=== PATIENT | female | born 1945 | race Caucasian/White ===

== ENCOUNTER → 2017-12-19 14:21 | Outpatient (CLI) | payer MEDICARE, SELFPAY ==
[2017-12-19 17:54] LABS: Albumin, Serum 3.5 g/dL (3.2-5.0); BUN 26 mg/dL (7-18); BUN/Creat Ratio 14.1 RATIO (10-20); Calcium,Total 9.5 mg/dL (8.5-10.1); Chloride 105 mmol/L (98-107); Creatinine, Serum 1.84 mg/dL (0.55-1.02); EST Glomerular Filtration Rate 28 mL/min (>60); Est Glom Filt Rate - Afr Amer 34 mL/min (>60); Glucose 139 mg/dL (74-106); Phosphorus 4.4 mg/dL (2.5-4.9); Potassium 4.4 mmol/L (3.5-5.1); Sodium Level 138 mmol/L (136-145)
== END ==
LOC: POLAB3 14:21
PROVIDERS: Family Provider Student in an Organized Health Care Education/Training Program; PCP Student in an Organized Health Care Education/Training Program; Visit Provider Internal Medicine Nephrology
DX: N18.4 Chronic kidney disease, stage 4 (severe) (principal)
CPT/HCPCS: 36415; 80069; 83970

== ENCOUNTER → 2018-01-18 08:50 | Outpatient (CLI) | payer MEDICARE, SELFPAY ==
[2017-03-11 13:13] VITALS: BMI 29.5
[2018-01-18 13:20] LABS: 24HR. UA Prot. Total Volume 3300 mL
[2018-01-18 13:29] LABS: Creat.Clear Total Volume 3300 mL; Creatinine Clearance 32 ml/min (100-200); Creatinine Serum Creat 1.8 mg/dL (0.6-1.0); Creatinine Urine 24.8 mg/dL (NO RANGE EST.); EST Glomerular Filtration Rate 29 mL/min (>60); Est Glom Filt Rate - Afr Amer 35 mL/min (>60)
[2018-01-18 13:34] LABS: Urine Protein (24 Hour) < 6.0 mg/dL (<11.9)
--- OUTSIDE RECORDS SUMMARY | 2018-03-15 08:33 | XMS RPT_ITS ---
:1945 Author Organization OH[facility] Care Team Providers Name Role Phone Timothy Das Primary Care Unavailable Toi Mckeon Attending Unavailable Sylvie Magana Attending Unavailable Das, Timothy Primary Care Unavailable Sylvie Magana Attending Unavailable Sylvie Magana Referring Unavailable Das Timothy Primary Care Unavailable Sylvie Magana Attending Unavailable Buzz Timothy Primary Care Unavailable MAXIMILIAN, ROCKY Gonzalo ([facility]) Attending Unavailable DAS, TIMOTHY L Referring Unavailable CORNIELLO, ROCKY L ([facility]) Referring Unavailable JAMES, PENG E Referring Unavailable JAMES, PENG E Attending Unavailable JAMES, PENG E Referring Unavailable CORNIELLO, ROCKY L ([facility]) Referring Unavailable CORNIELLO, ROCKY L ([facility]) Referring Unavailable CORNIELLO, ROCKY L ([facility]) Referring Unavailable CORNIELLO, ROCKY L ([facility]) Attending Unavailable JAMES, PENG E Referring Unavailable CORNIELLO, ROCKY L ([facility]) Attending Unavailable DAS, TIMOTHY L Referring Unavailable CORNIELLO, ROCKY L ([facility]) Attending Unavailable CORNIELLO, ROCKY L ([facility]) Referring Unavailable JAMES, PENG E Referring Unavailable DAS, TIMOTHY L Referring Unavailable DAS, TIMOTHY L Referring Unavailable CORNIELLO, ROCKY L ([facility]) Attending Unavailable DAS, TIMOTHY L Primary Care Unavailable MANJIT RAMIREZH Attending Unavailable JAMES, PENG Referring Unavailable PROBLEMS PROBLEMS DATE TYPE CONDITION / CODE ATTENDING STATUS SOURCE 10/14/2016 Active Type 2 diabetes NA Active [place] mellitus with [facility] diabetic chronic [place] kidney disease / Repository E11.22(ICD-10) 10/14/2016 Active Chronic kidney NA Active [place] disease, stage 4 [facility] (severe) / [place] N18.4(ICD-10) Repository 10/14/2016 Active shelter (current) NA Active [place] use of insulin / [facility] Z79.4(ICD-10) [place] Repository 02/03/2018 Active Other specified NA Active [place] personal risk [facility] factors, not [place] elsewhere classified Repository / Z91.89(ICD-10) 02/03/2018 Active Other prison NA Active [place] (current) drug [facility] therapy / [place] Z79.899(ICD-10) Repository 01/25/2018 Active Atherosclerotic NA Active [place] 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 coronary [place] artery without Repository angina pectoris / I25.10(ICD-10) 01/25/2018 Active Unknown / JAMES, Active Hand UNK(Unknown) PENG E [facility] [place] Repository 12/08/2017 Admitting Unknown / JAMES, Active [place] General diagnosis UNK(Unknown) [facility] Repository 08/19/2014 Active Hyperlipidemia, NA Active [place] unspecified / [facility] E78.5(ICD-10) [place] Repository 08/19/2014 Active Anemia, unspecified NA Active [place] / D64.9(ICD-10) [facility] [place] Repository 05/09/2016 Active Essential (primary) NA Active [place] hypertension / [facility] I10(ICD-10) [place] Repository 03/28/2017 Active Generalized NA Active [place] abdominal pain / [facility] R10.84(ICD-10) [place] Repository PROCEDURES PROCEDURES No Procedure Records FoundRESULTS RESULTS ALBUMIN/CREAT RATIO Collected: 02/03/2018 Status: F Source: [place] 9:02 AM [facility] REPOSITORY TYPE CODE TESTS RESULT OUT OF REFERENCE UNITS RANGE LAB UCRR 20-300 mg/dL Creatinine,Ur 91.4 ine,Ran LAB UALBR 0.0-23.0 mg/L High Albumin Urine 62.1 Random LAB UALBCR 0-30 mg/g High Albumin/Creat 68 Ratio Result Comment: 30 to 300 mg/g indicates an increased risk for diabetic nephropathy. Greater than 300 mg/g is consistent with clinical nephropathy. (Am J Kidney Disease 1994, 25:107) Performed By: #### UACR #### [facility] [address] [place], [place] [address] COMP METABOLIC PANEL Collected: 02/03/2018 Status: F Source: [place] 9:01 [facility] REPOSITORY TYPE CODE TESTS RESULT OUT OF REFERENCE UNITS RANGE LAB TP 6.3-8.0 g/dL Protein, Total 7.1 LAB ALB 3.9-4.9 g/dL Low Albumin 3.8 LAB CA 8.5-10.2 mg/dL Calcium, Total 9.2 LAB TBIL 0.2-1.3 mg/dL Bilirubin, Total 0.2 LAB ALKP 34-123 U/L Alkaline Phosphatase 70 LAB AST 13-35 U/L AST 23 LAB GLU 74-99 mg/dL Glucose High 133 Result Comment: The [place] Diabetes Association (ADA) provides guidance for cutoff values for fasting glucose and random glucose. The ADA defines fasting as no caloric intake for at least 8 hours. Fas ting plasma glucose results between 100 to 125 mg/dL indicate increased risk for diabetes (prediabetes). Fasting plasma glucose results greater than or equal to 126 mg/dL meet the criteria for diagnosis of diabetes. In the absence of unequivocal hyperglycemia, results should be confirmed by repeat testing. In a patient with classic symptoms of hyperglycemia or hyperglycemic crisis, random plasma glucose results greater than or equal to 200 mg/dL meet the criteria for diagnosis of diabetes. Reference: Standards of Medical Care in Diabetes 2016, [place] Diabetes Association. Diabetes Care. 2016.39(Suppl 1). LAB BUN 7-21 mg/dL BUN High 30 LAB CRET 0.58-0.96 mg/dL Creatinine High 1.73 LAB NA 136-144 mmol/L Sodium 140 LAB K 3.7-5.1 mmol/L Potassium 4.5 LAB CL 97-105 mmol/L Chloride 102 LAB CO2 22-30 mmol/L CO2 25 LAB AGAP 9-18 mmol/L Anion Gap 13 LAB ALT 7-38 U/L ALT 27 LAB GFRAA eGFR- Amer. 35 LAB GFRNAA . eGFR-All Other Races 29 Result Comment: eGFR (Estimated GFR) Units of measure: mL/min/1.73 meters squared eGFR is derived from the reexpressed MDRD Study equation using the following parameters: serum creatinine, age, gender and race. The creatinine assay has been calibrated to be traceable to IDMS. An eGFR <60 mL/min/1.73m2 for >3 months is consistent with chronic kidney disease. Refer to KDOQI guidelines for clinical interpretation. In patients with unstable renal function, e.g. those with acute kidney injury, the eGFR may not accurately reflect actual GFR. Performed By: #### CMP, LIPB, HBA1C #### [facility] [address] [place], [place] [address] LIPID PANEL, BASIC Collected: 02/03/2018 Status: F Source: [place] 9:01 AM [facility] REPOSITORY TYPE CODE TESTS RESULT OUT OF REFERENCE UNITS RANGE LAB CHOL <200 mg/dL Cholesterol 185 Result Comment: <200 mg/dL, Desirable 200-239 mg/dL, Borderline high >239 mg/dL, High LAB TRIGLY <150 mg/dL Triglyceride High 162 Result Comment: <150 mg/dL, Normal 150-199 mg/dL, Borderline high 200-499 mg/dL, High >499 mg/dL, Very high LAB HDL >39 mg/dL HDL-Cholesterol 53 Result Comment: 40-59 mg/dL, Acceptable >59 mg/dL, High: Negative risk factor for coronary heart disease <40 mg/dL, Low: Positive risk factor for coronary heart disease LAB LDL <100 mg/dL LDL-Cholesterol High 100 Result Comment: <100 mg/dL, Optimal 100-129 mg/dL, Near optimal/above optimal 130-159 mg/dL, Borderline high 160-189 mg/dL, High >189 mg/dL, Very high Secondary prevention optimal LDL Cholesterol levels are recommended to be < 70 mg/dL LAB NONHDL <130 mg/dL Non HDL High Cholesterol 132 Result Comment: <130 mg/dL, Optimal 130-159 mg/dL, Near optimal/above optimal 160-189 mg/dL, Borderline high 190-219 mg/dL, High >219 mg/dL, Very high Secondary prevention optimal non HDL Cholesterol levels are recommended to be < 100 mg/dL LAB FT hrs Fasting Time 12 LAB VLDL <30 mg/dL High VLDL Cholesterol 32 LAB TCHDL <5.10 TC:HDL Ratio 3.49 LAB LDLHDL <2.54 LDL:HDL Ratio 1.89 Result Comment: Reference: 1. National Cholesterol Education Program ATP III Guideline At-A-Glance Quick Desk Reference: National Heart, Lung, and Blood [place]. National Institutes of Health. 2001: NIH Publication No. 01-3305. 2. An International Atherosclerosis Society position paper: global recommendations for the management of dyslipidemia: executive summary, Atherosclerosis. 2014: 232(2):410-413. Performed By: #### CMP, LIPB, HBA1C #### [facility] [address] [place], [place] [address] HEMOGLOBIN A1C Collected: 02/03/2018 Status: F Source: [place] 9:01 AM [facility] REPOSITORY TYPE CODE TESTS RESULT OUT OF REFERENCE UNITS RANGE LAB HGBA1C 4.3-5.6 % High Hemoglobin A1c 8.2 Result Comment: [place] Diabetes Association guidelines indicate that patients with HgbA1c in the range 5.7-6.4% are at increased risk for development of diabetes, and intervention by lifestyle modification may be beneficial. HgbA1c greater or equal to 6.5% is considered diagnostic of diabetes. LAB HBA0 mg/dL Est. Average Glucose 189 Result Comment: eAG: (Estimated average glucose) is a calculated value from HgbA1c and is public service representative of the average blood glucose level in the last 2-3 month period. Performed By: #### CMP, LIPB, HBA1C #### [facility] [address] [place], [place] [address] CNNURSE Observed: 01/25/2018 Status: COMPLETED Source: [place] 4:00 PM [facility] REPOSITORY Nurse Visit (CAWSTR) JACKIE ALVAREZ ([id number]) 1945 F Date Time Provider Department 01/25/18 4:00 PM NURSE CARD ADMIN [facility] W[facility] CAWSTR During your visit today, we recorded the following information about you: Magen Sen RN 01/25/2018 2:55 PM Signed Ekg completed per order. Pt tolerated procedure without distress. Magen Sen RN Referring Provider: PENG RAMIREZ [[id number]] Allergies As of Date: 01/25/2018 (No Known Allergies) Date Reviewed: 01/25/2018 Reviewed by: Melisa Ochoa MA - Fully Assessed Reason for Visit: Nurse Visit [792] Visit Diagnoses:ASHD (arteriosclerotic heart disease) [I25.10] Essential hypertension [I10] Order(s):ECG COMPLETE W INTERPRETATION [ECG01] Order #: [id number] Prescriptions as of 01/25/2018 Sig: CALCIUM 600 + D ORAL Take by mouth. NOVOLIN N NPH U-100 INSULIN I* INJECT 16 UNITS SUBCUTANEOUSL* INSULIN U-100 REGULAR HUMAN 1* Inject 2 units before breakfa* LANCETS Use as directed to check bloo* GLUCOSE 4 GRAM CHEWABLE TABLET Take 4 tablets by mouth as ne* BLOOD SUGAR DIAGNOSTIC STRIPS Use as directed to check bloo* AMLODIPINE 10 MG TABLET Take 1 tablet by mouth once d* METOPROLOL TARTRATE 25 MG TAB* Take 1 tablet by mouth twice * ATORVASTATIN 40 MG TABLET TAKE ONE TABLET BY MOUTH ONCE* ESCITALOPRAM 5 MG TABLET TAKE ONE TABLET BY MOUTH ONCE* INSULIN SYRINGE U-100 WITH NE* Use as directed once daily wi* CHOLECALCIFEROL (VITAMIN D3) * TAKE ONE CAPSULE BY MOUTH ONC* BLOOD-GLUCOSE METER Use as directed to check bloo* ASPIRIN 81 MG TABLET,DELAYED * Take 1 tablet by mouth once d* Problem List As Of Date 01/25/2018 Noted Resolved HTN (hypertension) [I10] INVALID FOR* More... 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 Pt tolerated procedure without distress. Magen Sen RN Encounter Status:Closed by MAGEN SEN RN on 01/25/18 EKG1 Observed: 01/25/2018 Status: F Source: [place] 3:18 PM [facility] REPOSITORY NAME : JACKIE ALVAREZ PID : [id number] : 1945 Gender : Female Race : ORD : Procedure Date : Jan 25 2018 15:18:43 Edit Date : Jan 26 2018 12:35:56 Diagnosis:SINUS RHYTHM WITH 1ST DEGREE AV BLOCK COMPLETE LEFT BUNDLE BRANCH BLOCK ABNORMAL ECG LBBB IS NEW. Confirmed by PENG RAMIREZ MD ([id number]) on 01/26/2018 12:35:52 PM Ventricular Rate : 68 BPM Atrial Rate : 68 BPM P-R Interval : 220 ms QRS Duration : 130 ms Q-T Interval : 444 ms QTC Calculation(Bezet) : 472 ms P [place] : 67 degrees R [place] : 8 degrees T [place] : -81 degrees Test Reason : Location : 136 : [place] Overread By : PENG RAMIREZ MD Edited By : PENG RAMIREZ MD Referred By : JAMES, Acquired by : , PROGRESS Observed: 01/25/2018 Status: COMPLETED Source: [place] 2:45 PM [facility] REPOSITORY HNO ID: [id number] Author: Peng Ramirez Service: (none) Author Type: Physician Type: Progress Notes Filed: 01/25/2018 5:03 PM Note Text: PERTINENT CARDIAC HISTORY Syncope - cardiac? ASHD - moderate HTN HL DM CRF LBBB - rate related Abnormal stress test Left carotid stenosis ADHERENCE TO GUIDELINES LANDON-I or ARB for HF with prior LVEF<40 (NQF 0081) - met ASA or Plavix for ASHD (NQF 0067) - met Beta eusebia for ASHD with prior VA or prior LVEF<40 (NQF 0070) - N/A Beta eusebia for HF with prior LVEF<40 (NQF 0083) - N/A LANDON-I or ARB for ASHD with DM or prior LVEF<40 (NQF 0066) - met Statin therapy for ASHD or FHL or DM - met BMI documented and plan if >25 (NQF 0421) - lifestyle recommendation form Tobacco use screening and referral (NQF 0028) - lifestyle recommendation form Recommendation for whole food, plant based diet - lifestyle recommendation form CLINICAL IMPRESSION/PLAN: Jackie Alvarez is doing reasonably well. She reports blood pressures in the 120 systolic range at home. She will remain off Landon inhibitors for the time being. I recommend that she be seen in 12 months or as needed. If there is increased chest pain or shortness of breath, she has been advised to contact me. Written and verbal health teaching given to patient, patient verbalizes understanding and agrees with treatment plan. DIAGNOSIS FOR VISIT: ASHD Hypertension HISTORY OF PRESENT ILLNESS Jackie Alvarez returns for follow-up of her coronary disease and multiple cardiac issues, as noted above. She reports stable exercise tolerance. She's had no chest discomfort. She denies orthopnea, edema, syncope, palpitations, TIAs, amaurosis and claudication. She is now off her LANDON inhibitor, presumably because of declining renal function. She's been seeing nephrology. ALLERGIES: ALLERGIES No Known Allergies CURRENT OUTPATIENT MEDICATIONS: calcium carbonate/vitamin D3 (CALCIUM 600 + D ORAL) Take by mouth. NOVOLIN N NPH U-100 INSULIN 100 unit/mL injection INJECT 16 UNITS SUBCUTANEOUSLY AT BREAKFAST AND 12 UNITS WITH DINNER insulin regular human (HUMULIN R REGULAR U-100 INSULN) 100 unit/mL injection Inject 2 units before breakfast, 4 units before lunch and 6 units before supper Lancets (ACCU-CHEK SOFTCLIX LANCETS) lancets Use as directed to check blood sugar 1 to 2 times daily Dx: Type 2 DM - Controlled Insulin: Yes glucose (DEX4 GLUCOSE) 4 gram chewable tablet Take 4 tablets by mouth as needed. blood sugar diagnostic (ACCU-CHEK AUTUMN PLUS TEST STRP) test strip Use as directed to check blood sugar 4 to 5 times daily Dx: Type 2 DM - Controlled . Insulin: Yes amLODIPine (NORVASC) 10 mg tablet Take 1 tablet by mouth once daily. metoprolol tartrate, short acting, (LOPRESSOR) 25 mg tablet Take 1 tablet by mouth twice daily. atorvastatin (LIPITOR) 40 mg tablet TAKE ONE TABLET BY MOUTH ONCE DAILY escitalopram oxalate (LEXAPRO) 5 mg tablet TAKE ONE TABLET BY MOUTH ONCE DAILY Insulin Syringe-Needle U-100 0.3 mL 31 gauge x 5/16 syrg Use as directed once daily with insulin Cholecalciferol, Vitamin D3, 5,000 unit cap TAKE ONE CAPSULE BY MOUTH ONCE DAILY Blood-Glucose Meter (ACCU-CHEK AUTUMN PLUS METER) misc Use as directed to check blood sugar 1 to 2 times daily Dx: Type 2 DM - Controlled E11.22 ?Insulin: Yes aspirin, enteric coated (ADULT LOW DOSE ASPIRIN) 81 mg EC tablet Take 1 tablet by mouth once daily. PHYSICAL EXAMINATION: VITAL SIGNS: BP 133/65 Pulse 69 Ht 5' 7 (1.70m) Wt 180 lb 9.6 oz (81.9kg) BMI 28.28 kg/(m2). Chest: Clear to auscultation. Trachea is midline. Air entry is equal. Cardiac: Regular rhythm. S1 and S2 are normal. PMI is nondisplaced. There is a soft systolic ejection murmur. Carotids are brisk without bruits. JVP is less than 10 cm. Abdomen: Soft and nontender. There are no pulsatile masses or bruits. No liver enlargement. Bowel sounds are active. Extremities: Trace edema. Pulses are intact and symmetrical. Recent carotid Doppler shows no significant change. Recent labs reviewed. Renal function is impaired, but stable. LDL was 46. EKG shows sinus rhythm with first-degree AV block and left bundle. There is no significant change. Electronically Signed: Peng Ramirez MD January 25, 2018 2:45 PM CC: DO DAYAMI Quigley Observed: 01/25/2018 Status: COMPLETED Source: [place] 2:15 PM [facility] REPOSITORY Office Visit (CAWSTR) JACKIE ALVAREZ ([id number]) 1945 F Date Time Provider Department 01/25/18 2:15 PM PENG RAMIREZ During your visit today, we recorded the following information about you: Pulse Blood pressure Weight Height 69/minute 133/65 81.9 kg 1.702 m Peng Ramirez MD 01/25/2018 2:45 PM Signed LIFESTYLE CHANGE A healthy lifestyle is the most important component of your overall treatment plan. Please give serious thought to the following areas and commit to making emt intermediate changes. EAT A WHOLE FOOD, PLANT BASED DIET The nutrition your body gets is more important than the medicine you take. What matters most is the overall way you eat. We encourage you to minimize the use of animal products (which include dairy and all meats except fatty fish) and use whole, unprocessed plant foods to provide your protein, vitamins and other nutrients. We have a lot of information to share with you on this topic. This is not a diet. It is a way of life that you will keep with you. EXERCISE REGULARLY It is not important to spend hours in the gym, lifting weights and perspiring heavily. A total of 2-3 hours per week of aerobic (causing you to be moderately short of breath) exercise is sufficient to improve your health. Talk to us before you begin a new exercise program, if you have heart disease or experience shortness of breath or chest pain. REDUCE STRESS Chronic emotional and physical stress leads to disease. Ways of reducing stress include meditation, visualization, prayer, yoga and other forms of relaxation therapy. Consistency is the hodges. Find a technique that works for you and do it every day. CULTIVATE RELATIONSHIPS Loneliness and isolation have a major negative impact on health. Seek out others who can love, care for and nurture you. Avoid hurtful relationships. MAINTAIN IDEAL BODY WEIGHT The best way to do this is to do all the things above. Our bodies naturally find the right weight if we keep moving and feed ourselves the right food. If your BMI is greater than 25, we strongly recommend a referral to a weight management program. Please speak to us or your family physician about available programs. AVOID NICOTINE IN ALL FORMS This includes all tobacco products, whether chewed, smoked, vaped, or rubbed on the skin. Smoking cessation programs, which can make use of tobacco substitutes, medications to suppress cravings and behavior management, are available. Please contact your family physician about programs in your area. Peng Ramirez MD 01/25/2018 5:03 PM Signed PERTINENT CARDIAC HISTORY Syncope - cardiac? ASHD - moderate HTN HL DM CRF LBBB - rate related Abnormal stress test Left carotid stenosis ADHERENCE TO GUIDELINES LANDON-I or ARB for HF with prior LVEF<40 (NQF 0081) - met ASA or Plavix for ASHD (NQF 0067) - met Beta eusebia for ASHD with prior VA or prior LVEF<40 (NQF 0070) - N/A Beta eusebia for HF with prior LVEF<40 (NQF 0083) - N/A LANDON-I or ARB for ASHD with DM or prior LVEF<40 (NQF 0066) - met Statin therapy for ASHD or FHL or DM - met BMI documented and plan if >25 (NQF 0421) - lifestyle recommendation form Tobacco use screening and referral (NQF 0028) - lifestyle recommendation form Recommendation for whole food, plant based diet - lifestyle recommendation form CLINICAL IMPRESSION/PLAN: Jackie Alvarez is doing reasonably well. She reports blood pressures in the 120 systolic range at home. She will remain off Landon inhibitors for the time being. I recommend that she be seen in 12 months or as needed. If there is increased chest pain or shortness of breath, she has been advised to contact me. Written and verbal health teaching given to patient, patient verbalizes understanding and agrees with treatment plan. DIAGNOSIS FOR VISIT: ASHD Hypertension HISTORY OF PRESENT ILLNESS Jackie Alvarez returns for follow-up of her coronary disease and multiple cardiac issues, as noted above. She reports stable exercise tolerance. She's had no chest discomfort. She denies orthopnea, edema, syncope, palpitations, TIAs, amaurosis and claudication. She is now off her LANDON inhibitor, presumably because of declining renal function. She's been seeing nephrology. ALLERGIES: ALLERGIES No Known Allergies CURRENT OUTPATIENT MEDICATIONS: calcium carbonate/vitamin D3 (CALCIUM 600 + D ORAL) Take by mouth. NOVOLIN N NPH U-100 INSULIN 100 unit/mL injection INJECT 16 UNITS SUBCUTANEOUSLY AT BREAKFAST AND 12 UNITS WITH DINNER insulin regular human (HUMULIN R REGULAR U-100 INSULN) 100 unit/mL injection Inject 2 units before breakfast, 4 units before lunch and 6 units before supper Lancets (ACCU-CHEK SOFTCLIX LANCETS) lancets Use as directed to check blood sugar 1 to 2 times daily Dx: Type 2 DM - Controlled E11.22 Insulin: Yes glucose (DEX4 GLUCOSE) 4 gram chewable tablet Take 4 tablets by mouth as needed. blood sugar diagnostic (ACCU-CHEK AUTUMN PLUS TEST STRP) test strip Use as directed to check blood sugar 4 to 5 times daily Dx: Type 2 DM - Controlled E11.22 Insulin: Yes amLODIPine (NORVASC) 10 mg tablet Take 1 tablet by mouth once daily. metoprolol tartrate, short acting, (LOPRESSOR) 25 mg tablet Take 1 tablet by mouth twice daily. atorvastatin (LIPITOR) 40 mg tablet TAKE ONE TABLET BY MOUTH ONCE DAILY escitalopram oxalate (LEXAPRO) 5 mg tablet TAKE ONE TABLET BY MOUTH ONCE DAILY Insulin Syringe-Needle U-100 0.3 mL 31 gauge x 5/16 syrg Use as directed once daily with insulin Cholecalciferol, Vitamin D3, 5,000 unit cap TAKE ONE CAPSULE BY MOUTH ONCE DAILY Blood-Glucose Meter (ACCU-CHEK AUTUMN PLUS METER) misc Use as directed to check blood sugar 1 to 2 times daily Dx: Type 2 DM - Controlled E11.22 ?Insulin: Yes aspirin, enteric coated (ADULT LOW DOSE ASPIRIN) 81 mg EC tablet Take 1 tablet by mouth once daily. PHYSICAL EXAMINATION: VITAL SIGNS: BP 133/65 Pulse 69 Ht 5' 7 (1.70m) Wt 180 lb 9.6 oz (81.9kg) BMI 28.28 kg/(m2). Chest: Clear to auscultation. Trachea is midline. Air entry is equal. Cardiac: Regular rhythm. S1 and S2 are normal. PMI is nondisplaced. There is a soft systolic ejection murmur. Carotids are brisk without bruits. JVP is less than 10 cm. Abdomen: Soft and nontender. There are no pulsatile masses or bruits. No liver enlargement. Bowel sounds are active. Extremities: Trace edema. Pulses are intact and symmetrical. Recent carotid Doppler shows no significant change. Recent labs reviewed. Renal function is impaired, but stable. LDL was 46. EKG shows sinus rhythm with first-degree AV block and left bundle. There is no significant change. Electronically Signed: Peng Ramirez MD January 25, 2018 2:45 PM CC: Timothy Das DO Referring Provider: PENG RAMIREZ [[id number]] Allergies As of Date: 01/25/2018 (No Known Allergies) Date Reviewed: 01/25/2018 Reviewed by: Melisa Ochoa MA - Fully Assessed Reason for Visit: Established Patient [175] Primary Visit Diagnosis:ASHD (arteriosclerotic heart disease) [I25.10] Other Visit Diagnosis:Essential hypertension [I10] Order(s):ECG COMPLETE W INTERPRETATION [ECG01] Order #: [id number] FUTURE Prescriptions as of 01/25/2018 Sig: CALCIUM 600 + D ORAL Take by mouth. NOVOLIN N NPH U-100 INSULIN I* INJECT 16 UNITS SUBCUTANEOUSL* INSULIN U-100 REGULAR HUMAN 1* Inject 2 units before breakfa* LANCETS Use as directed to check bloo* GLUCOSE 4 GRAM CHEWABLE TABLET Take 4 tablets by mouth as ne* BLOOD SUGAR DIAGNOSTIC STRIPS Use as directed to check bloo* AMLODIPINE 10 MG TABLET Take 1 tablet by mouth once d* METOPROLOL TARTRATE 25 MG TAB* Take 1 tablet by mouth twice * ATORVASTATIN 40 MG TABLET TAKE ONE TABLET BY MOUTH ONCE* ESCITALOPRAM 5 MG TABLET TAKE ONE TABLET BY MOUTH ONCE* INSULIN SYRINGE U-100 WITH NE* Use as directed once daily wi* CHOLECALCIFEROL (VITAMIN D3) * TAKE ONE CAPSULE BY MOUTH ONC* BLOOD-GLUCOSE METER Use as directed to check bloo* ASPIRIN 81 MG TABLET,DELAYED * Take 1 tablet by mouth once d* Problem List As Of Date 01/25/2018 Noted Resolved HTN (hypertension) [I10] INVALID FOR* More... 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 Please give serious thought to the following areas and commit to making prison changes. EAT A WHOLE FOOD, PLANT BASED DIET The nutrition your body gets is more important than the medicine you take. What matters most is the overall way you eat. We encourage you to minimize the use of animal products (which include dairy and all meats except fatty fish) and use whole, unprocessed plant foods to provide your protein, vitamins and other nutrients. We have a lot of information to share with you on this topic. This is not a diet. It is a way of life that you will keep with you. EXERCISE REGULARLY It is not important to spend hours in the gym, lifting weights and perspiring heavily. A total of 2-3 hours per week of aerobic (causing you to be moderately short of breath) exercise is sufficient to improve your health. Talk to us before you begin a new exercise program, if you have heart disease or experience shortness of breath or chest pain. REDUCE STRESS Chronic emotional and physical stress leads to disease. Ways of reducing stress include meditation, visualization, prayer, yoga and other forms of relaxation therapy. Consistency is the hodges. Find a technique that works for you and do it every day. CULTIVATE RELATIONSHIPS Loneliness and isolation have a major negative impact on health. Seek out others who can love, care for and nurture you. Avoid hurtful relationships. MAINTAIN IDEAL BODY WEIGHT The best way to do this is to do all the things above. Our bodies naturally find the right weight if we keep moving and feed ourselves the right food. If your BMI is greater than 25, we strongly recommend a referral to a weight management program. Please speak to us or your family physician about available programs. AVOID NICOTINE IN ALL FORMS This includes all tobacco products, whether chewed, smoked, vaped, or rubbed on the skin. Smoking cessation programs, which can make use of tobacco substitutes, medications to suppress cravings and behavior management, are available. Please contact your family physician about programs in your area. Encounter Status:Closed by PENG RAMIREZ MD on 01/25/18 PROTEIN, URINE 24HR Collected: 01/18/2018 Status: F Source: [place] 8:56 AM [facility] REPOSITORY TYPE CODE TESTS RESULT OUT OF RANGE REFERENCE UNITS LAB L501.1850 24.0 HOURS 24.0 Normal UR COLLECT TIME LAB L501.1875 mL 3300 Normal UR TOTAL VOLUME LAB L501.1900 <11.9 mg/dL < 6.0 Normal URINE PROTEIN LAB L501.1925 <150 MG/24HR mg/24HR Test Normal 24hr UR not performed PROTEIN Performed By: #### L500.9000 #### [facility] [address] [place], [place], [address] SERUM CREATININE AND Collected: 01/18/2018 Status: F Source: [place] GFR 8:56 AM [facility] REPOSITORY TYPE CODE TESTS RESULT OUT OF RANGE REFERENCE UNITS LAB L501.1100 0.55-1.02 mg/dL High 1.80 CREAT,SERUM Result Comment: The validity of the calculated GFR AND GFRAA in patients over 70 years has not been determined. Clinical correlation is essential. LAB L501.1110 >60 mL/min Low EST GFR 29 Result Comment: Non- GFR Calc LAB L501.1115 >60 mL/min Low EST GFR - AA 35 Result Comment: GFR Calc Performed By: #### L501.1105, L500.3600 #### [facility] [address] [place], [address] RENAL PROFILE Collected: 01/18/2018 Status: P Source: [place] 8:56 AM [facility] REPOSITORY TYPE CODE TESTS RESULT OUT OF RANGE REFERENCE UNITS LAB L501.1100 0.55-1.02 mg/dL High 1.80 CREAT,SERUM Result Comment: The validity of the calculated GFR AND GFRAA in patients over 70 years has not been determined. Clinical correlation is essential. LAB L501.1110 >60 mL/min Low EST GFR 29 Result Comment: Non- GFR Calc LAB L501.1115 >60 mL/min Low EST GFR - AA 35 Result Comment: GFR Calc Performed By: #### L501.1105, L500.3600 #### [facility] [address] [place], [address] 24 HR UR CREATININE Collected: 01/18/2018 Status: F Source: [place]AR[place] 8:56 AM [facility] REPOSITORY TYPE CODE TESTS RESULT OUT OF RANGE REFERENCE UNITS LAB L501.0050 24.0 HOURS Normal UR COLLECT 24.0 TIME LAB L501.0075 mL Normal UR TOTAL 3300 VOLUME LAB L501.1050 0.6-1.0 mg/dL High SERUM CREAT 1.8 LAB L501.1110 >60 mL/min Low EST GFR 29 Result Comment: Non- GFR Calc LAB L501.1115 >60 mL/min Low EST GFR - AA 35 Result Comment: GFR Calc LAB L501.1150 NO RANGE mg/dL EST. URINE Normal CREAT 24.8 LAB L501.1250 100-200 ml/min Low CREAT CLEARANCE 32 Performed By: #### L500.4507 #### [facility] [address] [place] [address]. [place], [place], [address] PROGRESS Observed: 12/28/2017 Status: COMPLETED Source: [place] 11:54 AM [facility] REPOSITORY HNO ID: [id number] Author: Annika Cooley Service: (none) Author Type: Advisory Services Associate Type: Progress Notes Filed: 12/28/2017 11:54 AM Note Text: Radiology Service Progress Note PATIENT NAME: Jackie Alvarez DATE OF SERVICE: December 28, 2017 TIME: 11:54 AM PATIENT IDENTITY VERIFICATION COMPLETED USING TWO (2) METHODS: Patient confirmed name verbally and Date of . PATIENT GENDER DATA: Female. status: : No status: N/A PATIENT RELEVANT IMPLANT DATA REVIEWED: Not Applicable RADIOLOGY DEPARTMENT: Ultrasound PERIPHERAL IV DATA: Not applicable SIGNED BY: ANNIKA COOLEY RDMS RVT December 28, 2017 11:54 AM US KIDNEY/BLADDER Observed: 12/28/2017 Status: F Source: [place] 11:53 AM [facility] REPOSITORY * * *Final Report* * * DATE OF EXAM: Dec 28 2017 11:53AM [facility] 1055 - US KIDNEY/BLADDER / PROCEDURE REASON: multiple diagnoses * * * * Physician Interpretation * * * * EXAMINATION: RENAL ULTRASOUND CLINICAL HISTORY: Chronic kidney disease TECHNIQUE: Sonography of the kidneys and urinary bladder was performed. Images were obtained and stored in a permanent archive. MQ: UR_1 COMPARISON: None RESULT: Right Kidney: -Renal length: 12.3 cm -Parenchyma: Normal parenchymal echogenicity. Normal parenchymal thickness. -Collecting system: No hydronephrosis. -Calculus: No echogenic, shadowing calculus. -Lesion: Multiple cysts, largest involving the lower pole measuring 5.0 and 3.8 cm. Left Kidney: -Renal length: 9.2 cm -Parenchyma: Normal parenchymal echogenicity. Diffuse parenchymal thinning present. -Collecting system: No hydronephrosis. -Calculus: No echogenic, shadowing calculus. -Lesion: Upper pole cyst measuring 1.6 cm. Bladder: Normal sonographic appearance. IMPRESSION: Multiple right-sided renal cysts. Atrophic left kidney with small upper pole left-sided renal cysts. Unremarkable urinary bladder. Garment Supervisor: PSCB Transcribe Date/Time: Dec 29 2017 9:13A Dictated by : REBA ALTMAN MD This examination was interpreted and the report reviewed and electronically signed by: REBA ALTMAN MD on Dec 29 2017 9:16AM EST [id number] RENAL PROFILE Collected: 12/19/2017 Status: F Source: [place] 2:23 PM [facility] REPOSITORY TYPE CODE TESTS RESULT OUT OF RANGE REFERENCE UNITS LAB L501.0100 74-106 mg/dL High GLU 139 Result Comment: Fasting Glucose result greater than or equal to 126 mg/dL suggests DIABETES MELLITUS per A.D.A. criteria. Please note revised GLUCOSE reference range effective 2017. LAB L501.1000 7-18 mg/dL High BUN 26 LAB L501.1100 0.55-1.02 mg/dL High CREAT,SERUM 1.84 Result Comment: The validity of the calculated GFR AND GFRAA in patients over 70 years has not been determined. Clinical correlation is essential. LAB L501.1110 >60 mL/min Low EST GFR 28 Result Comment: Non- GFR Calc LAB L501.1115 >60 mL/min Low EST GFR - AA 34 Result Comment: GFR Calc LAB L501.1300 10-20 RATIO Normal BUN/CRE 14.1 LAB L501.1800 3.2-5.0 g/dL Normal ALB 3.5 LAB L501.2200 8.5-10.1 mg/dL CA Normal 9.5 LAB L501.2300 2.5-4.9 mg/dL Normal PHOS 4.4 LAB L501.5300 136-145 mmol/L NA Normal 138 LAB L501.5600 3.5-5.1 mmol/L K Normal 4.4 Result Comment: Slight Hemolysis, Result may be falsely increased. LAB L501.5900 98-107 mmol/L Normal CL 105 LAB L501.6100 21.0-32.0 mmol/L Normal CO2 26.0 Performed By: #### L500.3600 #### [facility] [address] [place], [address] PTHIN Collected: 12/19/2017 Status: F Source: [place] 2:23 PM [facility] REPOSITORY TYPE CODE TESTS RESULT OUT OF RANGE REFERENCE UNITS LAB L509.1000 18.4-80.1 pg/mL Normal PTHIN 24.0 Performed By: #### L509.1000 #### [facility] [address] [place], [address] BD DXA - FOREARM Observed: 11/06/2017 Status: F Source: [place] 10:31 AM [facility] REPOSITORY * * *Final Report* * * DATE OF EXAM: Nov 06 2017 10:31AM [facility] 0870 - BD DXA - FOREARM SKELETON / PROCEDURE REASON: multiple diagnoses. Stage 4 Chronic Kidney Disease * * * * Physician Interpretation * * * * PROCEDURE: BD DXA - AXIAL SKELETON, BD DXA - FOREARM SKELETON INDICATION: Other specified personal risk factors, not elsewhere classified Type 2 diabetes mellitus with diabetic chronic kidney disease Chronic kidney disease, stage 4 (severe) shelter (current) use of insulin TECHNIQUE: Low dose AP spine and hip images COMPARISON: LUMBAR SPINE: The bone mineral density from L1 through L4 is 1.012 grams per square centimeter which yields a T-score of -0.3. . LEFT HIP: The bone mineral density of the total region of the hip is 0.987 grams per square centimeter which yields a T-score of 0.4. . LEFT FEMORAL NECK: The bone mineral density of the femoral neck is 0.762 grams per square centimeter which yields a T-score of -0.8. . RIGHT HIP: The bone mineral density of the total region of the hip is 0.995 grams per square centimeter which yields a T-score of 0.4. . RIGHT FEMORAL NECK: The bone mineral density of the femoral neck is 0.751 grams per square centimeter which yields a T-score of -0.9. . LEFT FOREARM: The bone mineral density of the radius 1/3 is 0.615 grams per square centimeter which yields a T-score of -1.3 . . 10-year Fracture Risk (FRAX): Major osteoporotic fracture risk 9.2% Hip fracture risk 1.3% IMPRESSION: Osteopenia in the left forearm. [facility] ORG. CLASSIFICATION OF BONE MASS CLASSIFICATION T-SCORE Normal Greater than -1 Low Bone Mass Between -1 and -2.5 (Osteopenia) Osteoporosis Less than or equal to -2.5 Garment Supervisor: PSCGermain Transcribe Date/Time: Nov 06 2017 10:48A Dictated by : ADA JONES MD This examination was interpreted and the report reviewed and electronically signed by: ADA JONES MD on Nov 06 2017 10:50AM EST [id number] BD DXA - AXIAL Observed: 11/06/2017 Status: F Source: [place] 10:31 AM [facility] REPOSITORY * * *Final Report* * * DATE OF EXAM: Nov 06 2017 10:31AM [facility] 0804 - BD DXA - AXIAL SKELETON B / PROCEDURE REASON: multiple diagnoses * * * * Physician Interpretation * * * * PROCEDURE: BD DXA - AXIAL SKELETON, BD DXA - FOREARM SKELETON INDICATION: Other specified personal risk factors, not elsewhere classified Type 2 diabetes mellitus with diabetic chronic kidney disease Chronic kidney disease, stage 4 (severe) shelter (current) use of insulin TECHNIQUE: Low dose AP spine and hip images COMPARISON: LUMBAR SPINE: The bone mineral density from L1 through L4 is 1.012 grams per square centimeter which yields a T-score of -0.3. . LEFT HIP: The bone mineral density of the total region of the hip is 0.987 grams per square centimeter which yields a T-score of 0.4. . LEFT FEMORAL NECK: The bone mineral density of the femoral neck is 0.762 grams per square centimeter which yields a T-score of -0.8. . RIGHT HIP: The bone mineral density of the total region of the hip is 0.995 grams per square centimeter which yields a T-score of 0.4. . RIGHT FEMORAL NECK: The bone mineral density of the femoral neck is 0.751 grams per square centimeter which yields a T-score of -0.9. . LEFT FOREARM: The bone mineral density of the radius 1/3 is 0.615 grams per square centimeter which yields a T-score of -1.3 . . 10-year Fracture Risk (FRAX): Major osteoporotic fracture risk 9.2% Hip fracture risk 1.3% IMPRESSION: Osteopenia in the left forearm. [facility] ORG. CLASSIFICATION OF BONE MASS CLASSIFICATION T-SCORE Normal Greater than -1 Low Bone Mass Between -1 and -2.5 (Osteopenia) Osteoporosis Less than or equal to -2.5 Garment Supervisor: JACINTA Transcribe Date/Time: Nov 06 2017 10:48A Dictated by : ADA JONES MD This examination was interpreted and the report reviewed and electronically signed by: ADA JONES MD on Nov 06 2017 10:50AM EST [id number] PROGRESS Observed: 11/06/2017 Status: COMPLETED Source: [place] 10:28 AM [facility] REPOSITORY HNO ID: [id number] Author: Max Vee (Rt) Gordon Powers Service: (none) Author Type: Yard Assistant Type: Progress Notes Filed: 11/06/2017 10:29 AM Note Text: Radiology Service Progress Note PATIENT NAME: Jackie Alvarez DATE OF SERVICE: November 06, 2017 TIME: 10:28 AM PATIENT IDENTITY VERIFICATION COMPLETED USING TWO (2) METHODS: Patient confirmed name verbally and Date of . PATIENT GENDER DATA: Female. status: : No status: NO. PATIENT RELEVANT IMPLANT DATA REVIEWED: Not Applicable RADIOLOGY DEPARTMENT: [facility] bone density PERIPHERAL IV DATA: Not applicable SIGNED BY: RT Trae November 06, 2017 10:28 AM ALBUMIN URINE RANDOM Collected: 10/25/2017 Status: F Source: [place] 11:48 AM [facility] REPOSITORY TYPE CODE TESTS RESULT OUT OF REFERENCE UNITS RANGE LAB UALBR 0.0-23.0 mg/L High Albumin Urine 65.9 Random Performed By: #### UALBR #### [facility] [address] [place] [id number] PROGRESS Observed: 10/25/2017 Status: COMPLETED Source: [place] 11:30 AM [facility] REPOSITORY HNO ID: [id number] Author: Rocky Sánchez (Porter) Maximilian Service: (none) Author Type: Nurse Practitioner Type: Progress Notes Filed: 10/25/2017 11:38 AM Note Text: HPI/CC: Jackie Alvarez is a 72 year old female who presents for 3 month follow up with review of labs. Overall patient doing well. Blood glucose levels are stable. Following with Sandeep Dumont. Reports a few episodes of hypoglycemia r/t not eating. Followed hypoglycemia protocol and felt better. Reviewed blood glucose log. Admits to not drinking enough water. Continues exercise. Denies CP, SOB, palpitations, N/V, headache, abdominal pain, change in BMs, change in urination. Taking all medications as prescribed. Reports low back pain with increased activity. Resolves with rest. Reviewed labs with patient Component Latest Ref Rng AND Units 05/13/2017 07/25/2017 10/24/2017 WBC 3.70 - 11.00 k/uL 6.86 RBC 3.90 - 5.20 m/uL 4.03 Hemoglobin 11.5 - 15.5 g/dL 11.7 Hematocrit 36.0 - 46.0 % 38.3 MCV 80.0 - 100.0 fL 95.0 MCH 26.0 - 34.0 pG 29.0 MCHC 30.5 - 36.0 g/dL 30.5 RDW-CV 11.5 - 15.0 % 14.4 Platelet Count 150 - 400 k/uL 202 MPV 9.0 - 12.7 fL 10.7 Neut% % 64.4 Abs Neut (ANC) 1.45 - 7.50 k/uL 4.40 Lymph% % 23.6 Abs Lymph 1.00 - 4.00 k/uL 1.62 Henry% % 8.2 Abs Henry <0.87 k/uL 0.56 Eosin% % 3.2 Abs Eosin <0.46 k/uL 0.22 Baso% % 0.6 Abs Baso <0.11 k/uL 0.04 Nucleated Reds 0 /100 WBC 0.0 Absolute nRBC <0.01 k/uL <0.01 Diff Type Auto Diff Protein, Total 6.3 - 8.0 g/dL 7.2 6.7 Albumin 3.9 - 4.9 g/dL 4.0 3.9 Calcium 8.5 - 10.2 mg/dL 9.5 9.4 Bilirubin, Total 0.2 - 1.3 mg/dL 0.3 0.2 Alkaline Phosphatase 32 - 117 U/L 60 60 AST 13 - 35 U/L 26 25 Glucose 74 - 99 mg/dL 115 (H) 117 (H) BUN 7 - 21 mg/dL 33 (H) 48 (H) Creatinine 0.58 - 0.96 mg/dL 1.96 (H) 2.00 (H) Sodium 136 - 144 mmol/L 142 143 Potassium 3.7 - 5.1 mmol/L 4.6 4.8 Chloride 97 - 105 mmol/L 103 105 CO2 22 - 30 mmol/L 25 24 Anion Gap 9 - 18 mmol/L 14 14 ALT 7 - 38 U/L 21 23 eGFR- 30 29 eGFR-All Other Races . 25 24 Cholesterol, Total <200 mg/dL 120 Triglyceride <150 mg/dL 107 HDL Cholesterol >39 mg/dL 53 LDL Cholesterol <100 mg/dL 46 Non HDL Cholesterol <130 mg/dL 67 Fasting Time hrs 7 VLDL Cholesterol <30 mg/dL 21 TC:HDL Ratio <5.10 2.26 LDL:HDL Ratio <2.54 0.87 Hemoglobin A1C 4.3 - 5.6 % 6.8 (H) Estimated Average Glucose mg/dL 148 Hemoglobin A1C (POCT) 4.2 - 5.6 % 7.1 (A) ROS as above, otherwise non-contributory. Reviewed PMHx, PSHx, social Hx, medications and allergies. PHYSICAL EXAMINATION: BP 120/62 Pulse 76 Resp 16 Wt 81.2 kg (179 lb) BMI 28.04 kg/m? General appearance: Well appearing, alert, in no acute distress, well-hydrated, well nourished. and Overweight Skin: Skin color, texture, turgor normal, no suspicious rashes or lesions Lungs: Lungs clear to auscultation. No wheezing, rhonchi, rales Heart: RRR without murmur, gallop, or rubs. No ectopy Abdomen: Normal abdominal exam, Abdomen soft, non-tender. Bowel sounds normal. No masses, organomegaly ASSESSMENT/PLAN: 1. Type 2 diabetes mellitus with stage 4 chronic kidney disease, with long-term current use of insulin (HCC) - ICD9: 250.40, 585.4, V58.67, ICD10: E11.22, N18.4, Z79.4 (primary diagnosis) improved control - Continue current medications - Blood glucose monitoring on a three times a day schedule - Follow up in 3 months, sooner should any other issues arise. - BP goal of <130/80 - LDL goal of <100 - US KIDNEY/BLADDER - ALBUMIN RANDOM URINE - CREAT CLEAR 24 HOUR - COMP METABOLIC PANEL - LIPID PANEL BASIC - HGB A1C - CONSULT TO NEPHROLOGY- previously seen by Dr. Horta- patient would like to follow with a different provider 2. At risk for bone density loss - ICD9: V49.89, ICD10: Z91.89 - DXA-AXIAL SKELETON - continue to follow with Sandeep Dumont, set up new appt with nephrology. - f/u in 3 months or before if needed Rocky Yao APRN.CNP CNOV Observed: 10/25/2017 Status: COMPLETED Source: [place] 10:40 AM [facility] REPOSITORY Office Visit (FAMPWS) ALVAREZJACKIE ([id number]) 1945 F Date Time Provider Department 10/25/17 10:40 AM ROCKY YAO (PORTER) FAMPWS During your visit today, we recorded the following information about you: Pulse Respiration Blood pressure Weight 76/minute 16/minute 120/62 81.2 kg Rocky Yao APRN.CNP 10/25/2017 11:38 AM Signed HPI/CC: Jackie Alvarez is a 72 year old female who presents for 3 month follow up with review of labs. Overall patient doing well. Blood glucose levels are stable. Following with Sandeep Dumont. Reports a few episodes of hypoglycemia r/t not eating. Followed hypoglycemia protocol and felt better. Reviewed blood glucose log. Admits to not drinking enough water. Continues exercise. Denies CP, SOB, palpitations, N/V, headache, abdominal pain, change in BMs, change in urination. Taking all medications as prescribed. Reports low back pain with increased activity. Resolves with rest. Reviewed labs with patient Component Latest Ref Rng AND Units 05/13/2017 07/25/2017 10/24/2017 WBC 3.70 - 11.00 k/uL 6.86 RBC 3.90 - 5.20 m/uL 4.03 Hemoglobin 11.5 - 15.5 g/dL 11.7 Hematocrit 36.0 - 46.0 % 38.3 MCV 80.0 - 100.0 fL 95.0 MCH 26.0 - 34.0 pG 29.0 MCHC 30.5 - 36.0 g/dL 30.5 RDW-CV 11.5 - 15.0 % 14.4 Platelet Count 150 - 400 k/uL 202 MPV 9.0 - 12.7 fL 10.7 Neut% % 64.4 Abs Neut (ANC) 1.45 - 7.50 k/uL 4.40 Lymph% % 23.6 Abs Lymph 1.00 - 4.00 k/uL 1.62 Henry% % 8.2 Abs Henry <0.87 k/uL 0.56 Eosin% % 3.2 Abs Eosin <0.46 k/uL 0.22 Baso% % 0.6 Abs Baso <0.11 k/uL 0.04 Nucleated Reds 0 /100 WBC 0.0 Absolute nRBC <0.01 k/uL <0.01 Diff Type Auto Diff Protein, Total 6.3 - 8.0 g/dL 7.2 6.7 Albumin 3.9 - 4.9 g/dL 4.0 3.9 Calcium 8.5 - 10.2 mg/dL 9.5 9.4 Bilirubin, Total 0.2 - 1.3 mg/dL 0.3 0.2 Alkaline Phosphatase 32 - 117 U/L 60 60 AST 13 - 35 U/L 26 25 Glucose 74 - 99 mg/dL 115 (H) 117 (H) BUN 7 - 21 mg/dL 33 (H) 48 (H) Creatinine 0.58 - 0.96 mg/dL 1.96 (H) 2.00 (H) Sodium 136 - 144 mmol/L 142 143 Potassium 3.7 - 5.1 mmol/L 4.6 4.8 Chloride 97 - 105 mmol/L 103 105 CO2 22 - 30 mmol/L 25 24 Anion Gap 9 - 18 mmol/L 14 14 ALT 7 - 38 U/L 21 23 eGFR- 30 29 eGFR-All Other Races . 25 24 Cholesterol, Total <200 mg/dL 120 Triglyceride <150 mg/dL 107 HDL Cholesterol >39 mg/dL 53 LDL Cholesterol <100 mg/dL 46 Non HDL Cholesterol <130 mg/dL 67 Fasting Time hrs 7 VLDL Cholesterol <30 mg/dL 21 TC:HDL Ratio <5.10 2.26 LDL:HDL Ratio <2.54 0.87 Hemoglobin A1C 4.3 - 5.6 % 6.8 (H) Estimated Average Glucose mg/dL 148 Hemoglobin A1C (POCT) 4.2 - 5.6 % 7.1 (A) ROS as above, otherwise non-contributory. Reviewed PMHx, PSHx, social Hx, medications and allergies. PHYSICAL EXAMINATION: BP 120/62 Pulse 76 Resp 16 Wt 81.2 kg (179 lb) BMI 28.04 kg/m? General appearance: Well appearing, alert, in no acute distress, well-hydrated, well nourished. and Overweight Skin: Skin color, texture, turgor normal, no suspicious rashes or lesions Lungs: Lungs clear to auscultation. No wheezing, rhonchi, rales Heart: RRR without murmur, gallop, or rubs. No ectopy Abdomen: Normal abdominal exam, Abdomen soft, non-tender. Bowel sounds normal. No masses, organomegaly ASSESSMENT/PLAN: 1. Type 2 diabetes mellitus with stage 4 chronic kidney disease, with long-term current use of insulin ([facility]) - ICD9: 250.40, 585.4, V58.67, ICD10: E11.22, N18.4, Z79.4 (primary diagnosis) improved control - Continue current medications - Blood glucose monitoring on a three times a day schedule - Follow up in 3 months, sooner should any other issues arise. - BP goal of <130/80 - LDL goal of <100 - US KIDNEY/BLADDER - ALBUMIN RANDOM URINE - CREAT CLEAR 24 HOUR - COMP METABOLIC PANEL - LIPID PANEL BASIC - HGB A1C - CONSULT TO NEPHROLOGY- previously seen by Dr. Horta- patient would like to follow with a different provider 2. At risk for bone density loss - ICD9: V49.89, ICD10: Z91.89 - DXA-AXIAL SKELETON - continue to follow with Sandeep Dumont, set up new appt with nephrology. - f/u in 3 months or before if needed Rocky Yao APRN.[employer]STRU[employer] WORKER Referring Provider: SELF [200] Allergies As of Date: 10/25/2017 (No Known Allergies) Date Reviewed: 10/25/2017 Reviewed by: Herman Fry LPN - Fully Assessed Reason for Visit: Recheck [92] Cmt: 3 month follow up with review of labs Primary Visit Diagnosis:Type 2 diabetes mellitus with stage 4 chronic kidney disease, with long-term current use of insulin (HCC) [E11.22, N18.4, Z79.4] Other Visit Diagnosis:At risk for bone density loss [Z91.89] Order(s): KIDNEY/BLADDER [[id number]] Order #: [id number] FUTURE ALBUMIN RANDOM URINE [SQUALBR] Order #: [id number] FUTURE CREAT CLEAR 24 HOUR [SQUCCLR] Order #: [id number] FUTURE COMP METABOLIC PANEL [SQCMP] Order #: [id number] FUTURE LIPID PANEL BASIC [SQLIPB] Order #: [id number] FUTURE HGB A1C [[id number]] Order #: [id number] FUTURE DXA-AXIAL SKELETON [[id number]] Order #: [id number] FUTURE CONSULT TO NEPHROLOGY [9018] Order #: [id number]: 1 Prescriptions as of 10/25/2017 Sig: NOVOLIN N NPH U-100 INSULIN I* INJECT 16 UNITS SUBCUTANEOUSL* INSULIN U-100 REGULAR HUMAN 1* Inject 2 units before breakfa* LANCETS Use as directed to check bloo* GLUCOSE 4 GRAM CHEWABLE TABLET Take 4 tablets by mouth as ne* BLOOD SUGAR DIAGNOSTIC STRIPS Use as directed to check bloo* AMLODIPINE 10 MG TABLET Take 1 tablet by mouth once d* METOPROLOL TARTRATE 25 MG TAB* Take 1 tablet by mouth twice * ATORVASTATIN 40 MG TABLET TAKE ONE TABLET BY MOUTH ONCE* ESCITALOPRAM 5 MG TABLET TAKE ONE TABLET BY MOUTH ONCE* INSULIN SYRINGE-NEEDLE U-100 * Use as directed once daily wi* CHOLECALCIFEROL (VITAMIN D3) * TAKE ONE CAPSULE BY MOUTH ONC* BLOOD-GLUCOSE METER Use as directed to check bloo* ASPIRIN 81 MG TABLET,DELAYED * Take 1 tablet by mouth once d* Problem List As Of Date 10/25/2017 Noted Resolved HTN (hypertension) [I10] INVALID FOR* More... 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] INVALID FOR* Anemia [D64.9] INVALID FOR* Elevated serum creatinine [R79.89] INVALID FOR* Uncontrolled type 2 diabetes mellitus without c*INVALID FOR*05/25/2017 Essential hypertension [I10] INVALID FOR*04/25/2017 Situational depression [F43.21] INVALID FOR* Overweight (BMI 25.0-29.9) [E66.3] INVALID FOR* Vitamin D deficiency [E55.9] INVALID FOR* Type 2 diabetes mellitus with stage 4 chronic k*INVALID FOR* Encounter Status:Closed by ROCKY YAO CNP on 10/25/17 CBC AND DIFFERENTIAL Collected: 10/24/2017 Status: F Source: [place] 7:51 AM [facility] REPOSITORY TYPE CODE TESTS RESULT OUT OF REFERENCE UNITS RANGE LAB WBC 3.70-11.00 k/uL WBC 6.86 LAB RBC 3.90-5.20 m/uL RBC 4.03 LAB HGB 11.5-15.5 g/dL Hemoglobin 11.7 LAB HCT 36.0-46.0 % Hematocrit 38.3 LAB MCV 80.0-100.0 fL MCV 95.0 LAB MCH 26.0-34.0 pG MCH 29.0 LAB MCHC 30.5-36.0 g/dL MCHC 30.5 LAB RDWCV 11.5-15.0 % RDW-CV 14.4 LAB PLTCT 150-400 k/uL Platelet Count 202 LAB MPV 9.0-12.7 fL MPV 10.7 LAB ANEUT % Neut% 64.4 LAB AANEUT 1.45-7.50 k/uL Abs Neut 4.40 LAB ALYMP % Lymph% 23.6 LAB AALYMP 1.00-4.00 k/uL Abs Lymph 1.62 LAB AMONO % Henry% 8.2 LAB AAMONO <0.87 k/uL Abs Henry 0.56 LAB AEOS % Eosin% 3.2 LAB AAEOS <0.46 k/uL Abs Eosin 0.22 LAB ABASO % Baso% 0.6 LAB AABASO <0.11 k/uL Abs Baso 0.04 LAB AUNRBC 0 /100 WBC NRBCs 0.0 LAB ABNRBC <0.01 k/uL Absolute nRBC <0.01 LAB DTYP DTYPE Auto Diff Performed By: #### CBCDIF, HBA1C, CMP, LIPB #### [facility] [employer] [address], [place] [address] HEMOGLOBIN A1C Collected: 10/24/2017 Status: F Source: [place] 7:51 AM [facility] REPOSITORY TYPE CODE TESTS RESULT OUT OF REFERENCE UNITS RANGE LAB HGBA1C 4.3-5.6 % High Hemoglobin A1c 6.8 LAB HBA0 mg/dL Est. Average Glucose 148 Result Comment: eAG: (Estimated average glucose) is a calculated value from HgbA1c and is public service representative of the average blood glucose level in the last 2-3 month period. Performed By: #### CBCDIF, HBA1C, CMP, LIPB #### [facility] [employer] [facility] [place] [address] COMP METABOLIC PANEL Collected: 10/24/2017 Status: F Source: [place] 7:51 AM [facility] REPOSITORY TYPE CODE TESTS RESULT OUT OF REFERENCE UNITS RANGE LAB TP 6.3-8.0 g/dL Protein, Total 6.7 LAB ALB 3.9-4.9 g/dL Albumin 3.9 LAB CA 8.5-10.2 mg/dL Calcium, Total 9.4 LAB TBIL 0.2-1.3 mg/dL Bilirubin, Total 0.2 LAB ALKP 32-117 U/L Alkaline Phosphatase 60 LAB AST 13-35 U/L AST 25 LAB GLU 74-99 mg/dL Glucose High 117 Result Comment: The [place] Diabetes Association (ADA) provides guidance for cutoff values for fasting glucose and random glucose. The ADA defines fasting as no caloric intake for at least 8 hours. Fas ting plasma glucose results between 100 to 125 mg/dL indicate increased risk for diabetes (prediabetes). Fasting plasma glucose results greater than or equal to 126 mg/dL meet the criteria for diagnosis of diabetes. In the absence of unequivocal hyperglycemia, results should be confirmed by repeat testing. In a patient with classic symptoms of hyperglycemia or hyperglycemic crisis, random plasma glucose results greater than or equal to 200 mg/dL meet the criteria for diagnosis of diabetes. Reference: Standards of Medical Care in Diabetes 2016, [place] Diabetes Association. Diabetes Care. 2016.39(Suppl 1). LAB BUN 7-21 mg/dL BUN High 48 LAB CRET 0.58-0.96 mg/dL Creatinine High 2.00 LAB NA 136-144 mmol/L Sodium 143 LAB K 3.7-5.1 mmol/L Potassium 4.8 LAB CL 97-105 mmol/L Chloride 105 LAB CO2 22-30 mmol/L CO2 24 LAB AGAP 9-18 mmol/L Anion Gap 14 LAB ALT 7-38 U/L ALT 23 LAB GFRAA eGFR- Amer. 29 LAB GFRNAA . eGFR-All Other Races 24 Result Comment: eGFR (Estimated GFR) Units of measure: mL/min/1.73 meters squared eGFR is derived from the reexpressed MDRD Study equation using the following parameters: serum creatinine, age, gender and race. The creatinine assay has been calibrated to be traceable to IDMS. An eGFR <60 mL/min/1.73m2 for >3 months is consistent with chronic kidney disease. Refer to KDOQI guidelines for clinical interpretation. In patients with unstable renal function, e.g. those with acute kidney injury, the eGFR may not accurately reflect actual GFR. Performed By: #### CBCDIF, HBA1C, CMP, LIPB #### [facility] [address] [place], [place] [address] LIPID PANEL, BASIC Collected: 10/24/2017 Status: F Source: [place] 7:51 AM [facility] REPOSITORY TYPE CODE TESTS RESULT OUT OF REFERENCE UNITS RANGE LAB CHOL <200 mg/dL Cholesterol 120 Result Comment: <200 mg/dL, Desirable 200-239 mg/dL, Borderline high >239 mg/dL, High LAB TRIGLY <150 mg/dL Triglyceride 107 Result Comment: <150 mg/dL, Normal 150-199 mg/dL, Borderline high 200-499 mg/dL, High >499 mg/dL, Very high LAB HDL >39 mg/dL HDL-Cholesterol 53 Result Comment: 40-59 mg/dL, Acceptable >59 mg/dL, High: Negative risk factor for coronary heart disease <40 mg/dL, Low: Positive risk factor for coronary heart disease LAB LDL <100 mg/dL LDL-Cholesterol 46 Result Comment: <100 mg/dL, Optimal 100-129 mg/dL, Near optimal/above optimal 130-159 mg/dL, Borderline high 160-189 mg/dL, High >189 mg/dL, Very high Secondary prevention optimal LDL Cholesterol levels are recommended to be < 70 mg/dL LAB NONHDL <130 mg/dL Non HDL Cholesterol 67 Result Comment: <130 mg/dL, Optimal 130-159 mg/dL, Near optimal/above optimal 160-189 mg/dL, Borderline high 190-219 mg/dL, High >219 mg/dL, Very high Secondary prevention optimal non HDL Cholesterol levels are recommended to be < 100 mg/dL LAB FT hrs Fasting Time 7 LAB VLDL <30 mg/dL VLDL Cholesterol 21 LAB TCHDL <5.10 TC:HDL Ratio 2.26 LAB LDLHDL <2.54 LDL:HDL Ratio 0.87 Result Comment: Reference: 1. National Cholesterol Education Program ATP III Guideline At-A-Glance Quick Desk Reference: National Heart, Lung, and Blood [place]. National Institutes of Health. 2001: NIH Publication No. 01-3305. 2. An International Atherosclerosis Society position paper: global recommendations for the management of dyslipidemia: executive summary, Atherosclerosis. 2014: 232(2):410-413. Performed By: #### CBCDIF, HBA1C, CMP, LIPB #### [facility] [address] [place] [address] PROGRESS Observed: 09/12/2017 Status: COMPLETED Source: [place] 12:18 PM [facility] REPOSITORY HNO ID: [id number] Author: Isa English Clipper Machine Service: (none) Author Type: (none) Type: Progress Notes Filed: 09/12/2017 12:19 PM Note Text: Letters mailed to patient. PROGRESS Observed: 09/12/2017 Status: COMPLETED Source: [place] 12:17 PM [facility] REPOSITORY HNO ID: [id number] Author: Isa English Clipper Machine Service: (none) Author Type: (none) Type: Progress Notes Filed: 09/12/2017 12:19 PM Note Text: Patient has upcoming appointment with Rocky Farah on 10/25. Will be due for labs prior. I will send appointment/lab reminder with Dm retinal reminder and release form. CRISTINEPALLAVI Observed: 09/12/2017 Status: COMPLETED Source: [place] 12:00 AM [facility] REPOSITORY Patient Outreach (INTMWS) JACKIE ALVAREZ ([id number]) 1945 F Date Time Provider Department 09/12/17 ISA ENGLISH ([facility]) INTMWS During your visit today, we recorded the following information about you: Isa English Cma 09/12/2017 12:19 PM Signed Patient has upcoming appointment with Rocky Farah on 10/25. Will be due for labs prior. I will send appointment/lab reminder with Dm retinal reminder and release form. Isa English Clipper Machine 09/12/2017 12:19 PM Signed Letters mailed to patient. Allergies As of Date: 09/12/2017 (No Known Allergies) Date Reviewed: 07/25/2017 Reviewed by: Herman Fry LPN - Fully Assessed Reason for Visit: PHMA/Care Gap Outreach [[id number]] Prescriptions as of 09/12/2017 Sig: INSULIN NPH ISOPHANE U-100 HU* Inject 16 units subcutaneousl* LANCETS Use as directed to check bloo* GLUCOSE 4 GRAM CHEWABLE TABLET Take 4 tablets by mouth as ne* BLOOD SUGAR DIAGNOSTIC STRIPS Use as directed to check bloo* INSULIN U-100 REGULAR HUMAN 1* Inject 2 units before breakfa* AMLODIPINE 10 MG TABLET Take 1 tablet by mouth once d* METOPROLOL TARTRATE 25 MG TAB* Take 1 tablet by mouth twice * ATORVASTATIN 40 MG TABLET TAKE ONE TABLET BY MOUTH ONCE* ESCITALOPRAM 5 MG TABLET TAKE ONE TABLET BY MOUTH ONCE* INSULIN SYRINGE-NEEDLE U-100 * Use as directed once daily wi* CHOLECALCIFEROL (VITAMIN D3) * TAKE ONE CAPSULE BY MOUTH ONC* BLOOD-GLUCOSE METER Use as directed to check bloo* ASPIRIN 81 MG TABLET,DELAYED * Take 1 tablet by mouth once d* Problem List As Of Date 09/12/2017 Noted Resolved HTN (hypertension) [I10] INVALID FOR* More... 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 Our records indicate that you may be due for a diabetic eye exam. If you have had a diabetic eye exam within the last year, please have your records sent to us so that we may update your medical records. There is a medical records of release of information included in this letter. Please take the release to your eye doctor for future appointments to have your records forwarded to us. Important facts about diabetic eye exams Diabetic retinal exams should be done yearly for all patients with a diagnosis of diabetes. Risks such as diabetic retinopathy can be reduced with blood glucose control and early detection of potential problems. Diabetic retinopathy is damage to the small blood vessels in the retina that can lead to blindness Thank you, Timothy Das DO Letter [facility] [place] [id number] Office: [phone] Timothy Das DO REQUEST FOR EYE EXAM FINDINGS March 11, 2016 Dear eye healthcare administrative assistant, Thank you for coordinating eye care for our mutual patient, Jackie Alvarez (1945). Please fax this letter back to me with the most appropriate response selected below. Please allow the patient's signature to serve as permission to share your findings. Sincerely, Timothy Das, DO Patient Signature Date Date of eye exam: Findings Both Eyes Right Left No Retinopathy Detected Non Proliferative Retinopathy Mild Moderate Severe Proliferative Retinopathy Macular Edema Further testing and/or treatment indicated Comments: Patient is to return: Encounter Status:Closed by ISA ENGLISH CMA on 09/12/17 PROGRESS Observed: 07/25/2017 Status: COMPLETED Source: [place] 10:53 AM [facility] REPOSITORY HNO ID: [id number] Author: Rocky Sánchez (Lead Driver) Maximilian Service: (none) Author Type: Nurse Practitioner Type: Progress Notes Filed: 07/25/2017 3:29 PM Note Text: HPI/CC: Jackie Alvarez is a 72 year old female who presents to the office today for review of health conditions. Ms. Alvarez has past history of diabetes, hyperlipidemia and hypertension. DM: Since our last visit she denies excessive thirst or increased frequency of urination, chest pain or dyspnea , numbness, tingling or pain in extremities, new or unusual visual symptoms and lightheadedness/dizziness. Patient admits to have low sugar/hypoglycemic reactions less than once a week. Follows a diabetic diet most of the time. She is compliant with medication(s) and is tolerating med(s) without any side effects. She reports checking her glucose on a four times a day schedule with sugars in the fasting 89-289 range. Patient's last HgA1C was Hemoglobin A1C (%) Date Value 05/13/2017 9.3 03/20/2017 11.4 ) Last Ophthalmology exam > 1 year ago Last Podiatry exam- never Most Recent Immunizations Administered Date(s) Administered Influenza Seasonal - High Dose - Age 65+ 12/30/2016 Tetanus Diphtheria Booster (Age >7) Pres Free 05/25/2017 Hyperlipidemia. Current therapy includes atorvastatin (Lipitor) 40 mg. Denies side effects of muscle weakness or achiness. Her most recent lipid panels are reviewed. Cholesterol, Total (mg/dL) Date Value 12/09/2016 148 HDL Cholesterol (mg/dL) Date Value 12/09/2016 66 LDL Cholesterol (mg/dL) Date Value 12/09/2016 52 Triglyceride (mg/dL) Date Value 12/09/2016 149 Hypertension: states that she is feeling well and denies any symptoms referable to elevated blood pressure. Specifically denies headache, chest pain, palpitations, dyspnea, peripheral edema and fatigue. Patient denies any side effects of her medication(s) and is compliant with their regimen. Last 3 Encounter BP Readings: Date: BP: 07/25/2017 138/78 05/25/2017 142/79 05/25/2017 152/90 She watches her diet for sodium, low fat and low cholesterol most of the time. She does check BP's away from this office with average BP's in the normal range. Jackie works out regularly daily- walking REVIEW OF SYSTEMS: as above Reviewed relevant PMHx, PSHx, Social Hx, current medications and allergies. PHYSICAL EXAMINATION: BP 138/78 Pulse 72 Resp 16 Wt 83.5 kg (184 lb) BMI 28.82 kg/m? General appearance: Well appearing, alert, in no acute distress, well-hydrated, well nourished. Skin: Skin color, texture, turgor normal, no suspicious rashes or lesions Lungs: Lungs clear to auscultation. No wheezing, rhonchi, rales Heart: RRR without murmur, gallop, or rubs. No ectopy Extremities: No deformities, edema, skin discoloration, clubbing or cyanosis. Good capillary refill. Musculoskeletal: Spine range of motion normal. Muscular strength intact, No joint swelling, deformity, or tenderness Peripheral pulses: Normal Neuro: Gait normal. Reflexes normal and symmetric. Sensation grossly intact. Feet: Shoes and socks removed, No deformities, ulcers, calluses, normal distal pulses, sensitive to 10 gm monofilament and vibratory perception decreased bilaterally ASSESSMENT/PLAN: 1. Type 2 diabetes mellitus with stage 4 chronic kidney disease, with long-term current use of insulin ([facility]) - ICD9: 250.40, 585.4, V58.67, ICD10: E11.22, N18.4, Z79.4 (primary diagnosis) Controlled. improved control - Continue current medications - Blood glucose monitoring on a four times a day schedule - Ophthalmology referral for eval/management of diabetic eye changes - Follow up in 3 months, sooner should any other issues arise. - LDL goal of <100 2. Essential hypertension - ICD9: 401.9, ICD10: I10 - good control - Continue current medication(s) - Recommended regular aerobic exercise. - Recommend home blood pressure monitoring, to bring results in on next visit - Recheck in 3 months, sooner should new symptoms or problems arise. - Goal of BP <140/90 3. Hyperlipidemia with target LDL less than 100 - ICD9: 272.4, ICD10: E78.5 - good control - Continue current medication. 4. CKD (chronic kidney disease) stage 4, GFR 15-29 ml/min ([facility]) - ICD9: 585.4, ICD10: N18.4 - monitor JOY AnnaOV Observed: 07/25/2017 Status: COMPLETED Source: [place] 10:40 AM [facility] REPOSITORY Office Visit (FAMPWS) JACKIE ALVAREZ ([id number]) 1945 F Date Time Provider Department 07/25/17 10:40 AM ROCKY YAO (PORTER) FAMClaudioWS During your visit today, we recorded the following information about you: Pulse Respiration Blood pressure Weight 72/minute 16/minute 138/78 83.5 kg Rocky Yao APRN.CNP 07/25/2017 3:29 PM Signed HPI/CC: Jackie Alvarez is a 72 year old female who presents to the office today for review of health conditions. Ms. Alvarez has past history of diabetes, hyperlipidemia and hypertension. DM: Since our last visit she denies excessive thirst or increased frequency of urination, chest pain or dyspnea , numbness, tingling or pain in extremities, new or unusual visual symptoms and lightheadedness/dizziness. Patient admits to have low sugar/hypoglycemic reactions less than once a week. Follows a diabetic diet most of the time. She is compliant with medication(s) and is tolerating med(s) without any side effects. She reports checking her glucose on a four times a day schedule with sugars in the fasting 89-289 range. Patient's last HgA1C was Hemoglobin A1C (%) Date Value 05/13/2017 9.3 03/20/2017 11.4 ) Last Ophthalmology exam > 1 year ago Last Podiatry exam- never Most Recent Immunizations Administered Date(s) Administered Influenza Seasonal - High Dose - Age 65+ 12/30/2016 Tetanus Diphtheria Booster (Age >7) Pres Free 05/25/2017 Hyperlipidemia. Current therapy includes atorvastatin (Lipitor) 40 mg. Denies side effects of muscle weakness or achiness. Her most recent lipid panels are reviewed. Cholesterol, Total (mg/dL) Date Value 12/09/2016 148 HDL Cholesterol (mg/dL) Date Value 12/09/2016 66 LDL Cholesterol (mg/dL) Date Value 12/09/2016 52 Triglyceride (mg/dL) Date Value 12/09/2016 149 Hypertension: states that she is feeling well and denies any symptoms referable to elevated blood pressure. Specifically denies headache, chest pain, palpitations, dyspnea, peripheral edema and fatigue. Patient denies any side effects of her medication(s) and is compliant with their regimen. Last 3 Encounter BP Readings: Date: BP: 07/25/2017 138/78 05/25/2017 142/79 05/25/2017 152/90 She watches her diet for sodium, low fat and low cholesterol most of the time. She does check BP's away from this office with average BP's in the normal range. Jackie works out regularly daily- walking REVIEW OF SYSTEMS: as above Reviewed relevant PMHx, PSHx, Social Hx, current medications and allergies. PHYSICAL EXAMINATION: BP 138/78 Pulse 72 Resp 16 Wt 83.5 kg (184 lb) BMI 28.82 kg/m? General appearance: Well appearing, alert, in no acute distress, well-hydrated, well nourished. Skin: Skin color, texture, turgor normal, no suspicious rashes or lesions Lungs: Lungs clear to auscultation. No wheezing, rhonchi, rales Heart: RRR without murmur, gallop, or rubs. No ectopy Extremities: No deformities, edema, skin discoloration, clubbing or cyanosis. Good capillary refill. Musculoskeletal: Spine range of motion normal. Muscular strength intact, No joint swelling, deformity, or tenderness Peripheral pulses: Normal Neuro: Gait normal. Reflexes normal and symmetric. Sensation grossly intact. Feet: Shoes and socks removed, No deformities, ulcers, calluses, normal distal pulses, sensitive to 10 gm monofilament and vibratory perception decreased bilaterally ASSESSMENT/PLAN: 1. Type 2 diabetes mellitus with stage 4 chronic kidney disease, with long-term current use of insulin ([facility]) - ICD9: 250.40, 585.4, V58.67, ICD10: E11.22, N18.4, Z79.4 (primary diagnosis) Controlled. improved control - Continue current medications - Blood glucose monitoring on a four times a day schedule - Ophthalmology referral for eval/management of diabetic eye changes - Follow up in 3 months, sooner should any other issues arise. - LDL goal of <100 2. Essential hypertension - ICD9: 401.9, ICD10: I10 - good control - Continue current medication(s) - Recommended regular aerobic exercise. - Recommend home blood pressure monitoring, to bring results in on next visit - Recheck in 3 months, sooner should new symptoms or problems arise. - Goal of BP <140/90 3. Hyperlipidemia with target LDL less than 100 - ICD9: 272.4, ICD10: E78.5 - good control - Continue current medication. 4. CKD (chronic kidney disease) stage 4, GFR 15-29 ml/min ([facility]) - ICD9: 585.4, ICD10: N18.4 - monitor Rocky Yao APRN.[employer] WORK[employer] Referring Provider: SELF [[id number]] Allergies As of Date: 07/25/2017 (No Known Allergies) Date Reviewed: 07/25/2017 Reviewed by: Herman Fry LPN - Fully Assessed Reason for Visit: Recheck [92] Cmt: follow up Primary Visit Diagnosis:Type 2 diabetes mellitus with stage 4 chronic kidney disease, with long-term current use of insulin ([facility]) [E11.22, N18.4, Z79.4] Other Visit Diagnoses:Essential hypertension [I10] Hyperlipidemia with target LDL less than 100 [E78.5] CKD (chronic kidney disease) stage 4, GFR 15-29 ml/min (HCC) [N18.4] Order(s):HEMOGLOBIN A1C B/O [386931] Order #: [id number] COMP METABOLIC PANEL [SQCMP] Order #: [id number] FUTURE CBC + DIFF [SQCBCDIF] Order #: [id number] FUTURE LIPID PANEL BASIC [SQLIPB] Order #: [id number] FUTURE HGB A1C [XVEMP7G] Order #: [id number] FUTURE HEMOGLOBIN A1C (POC) [[id number]] Order #: [id number]. #:[id number] Prescriptions as of 07/25/2017 Sig: LANCETS Use as directed to check bloo* GLUCOSE 4 GRAM CHEWABLE TABLET Take 4 tablets by mouth as ne* BLOOD SUGAR DIAGNOSTIC STRIPS Use as directed to check bloo* INSULIN NPH ISOPHANE U-100 HU* Inject 16 units subcutaneousl* INSULIN U-100 REGULAR HUMAN 1* Inject 2 units before breakfa* AMLODIPINE 10 MG TABLET Take 1 tablet by mouth once d* METOPROLOL TARTRATE 25 MG TAB* Take 1 tablet by mouth twice * ATORVASTATIN 40 MG TABLET TAKE ONE TABLET BY MOUTH ONCE* ESCITALOPRAM 5 MG TABLET TAKE ONE TABLET BY MOUTH ONCE* INSULIN SYRINGE-NEEDLE U-100 * Use as directed once daily wi* CHOLECALCIFEROL (VITAMIN D3) * TAKE ONE CAPSULE BY MOUTH ONC* BLOOD-GLUCOSE METER Use as directed to check bloo* ASPIRIN 81 MG TABLET,DELAYED * Take 1 tablet by mouth once d* Problem List As Of Date 07/25/2017 Noted Resolved HTN (hypertension) [I10] INVALID FOR* More... 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] INVALID FOR* Anemia [D64.9] INVALID FOR* Elevated serum creatinine [R79.89] INVALID FOR* Uncontrolled type 2 diabetes mellitus without c*INVALID FOR*05/25/2017 Essential hypertension [I10] INVALID FOR*04/25/2017 Situational depression [F43.21] INVALID FOR* Overweight (BMI 25.0-29.9) [E66.3] INVALID FOR* Vitamin D deficiency [E55.9] INVALID FOR* Type 2 diabetes mellitus with stage 4 chronic k*INVALID FOR* Encounter Status:Closed by ROCKY YAO CNP on 07/25/17 MANPREET Observed: 06/15/2017 Status: COMPLETED Source: [place] 12:00 AM [facility] REPOSITORY Telephone (PHMEWO) JACKIE ALVAREZ ([id number]) 1945 F Date Time Provider Department 06/15/17 VERONICA (PHARMACIST)SANDEEP During your visit today, we recorded the following information about you: JIMI CARL 06/15/2017 5:25 PM Addendum Patient calling to report SMBGs. ?? Reports taking NPH 16-0-12-0 and regular 2-4-6-0 units as prescribed FBG Lunch Dinner HS 06/15 135 163 57 06/14 86 196 132 115 06/13 84 123 133 138 06/12 88 109 110 131 06/11 156 159 140 182 06/10 99 156 42, 75 93 06/09 125 201 147 172 06/08 150 151 128 136 BGs are mostly at goal, will continue current regimen at this time. CONTINUE insulin NPH 16 units QAM, 12 units QPM; and insulin regular 2-4-6 units ? Instructed patient to take at least 3 glucose tablets if BG ANDlt; 70 and re-check sugar after 10-15 min to make sure it improves ? Instructed patient to check BG when we get off the phone to make sure her BG has improved ? PharmD phone call 06/15 ?? Sandeep Martin, ParrishD, [facility] Allergies As of Date: 06/15/2017 (No Known Allergies) Date Reviewed: 05/25/2017 Reviewed by: Herman Fry LPN - Fully Assessed Reason for Visit: Blood Sugar Reading [1269] Order(s):glucose (DEX4 GLUCOSE) 4 gram chewable tabletTake 4 tablets by mouth as needed.Disp: 50 tabletRfl: 1 Prescriptions as of 06/15/2017 Sig: GLUCOSE 4 GRAM CHEWABLE TABLET Take 4 tablets by mouth as ne* BLOOD SUGAR DIAGNOSTIC STRIPS Use as directed to check bloo* INSULIN NPH ISOPHANE U-100 HU* Inject 16 units subcutaneousl* INSULIN U-100 REGULAR HUMAN 1* Inject 2 units before breakfa* AMLODIPINE 10 MG TABLET Take 1 tablet by mouth once d* METOPROLOL TARTRATE 25 MG TAB* Take 1 tablet by mouth twice * ATORVASTATIN 40 MG TABLET TAKE ONE TABLET BY MOUTH ONCE* ESCITALOPRAM 5 MG TABLET TAKE ONE TABLET BY MOUTH ONCE* INSULIN SYRINGE-NEEDLE U-100 * Use as directed once daily wi* LANCETS Use as directed to check bloo* CHOLECALCIFEROL (VITAMIN D3) * TAKE ONE CAPSULE BY MOUTH ONC* BLOOD-GLUCOSE METER Use as directed to check bloo* LANCETS Test blood sugar(s) 2 times d* ASPIRIN 81 MG TABLET,DELAYED * Take 1 tablet by mouth once d* Problem List As Of Date 06/15/2017 Noted Resolved HTN (hypertension) [I10] INVALID FOR* More... 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] INVALID FOR* Anemia [D64.9] INVALID FOR* Elevated serum creatinine [R79.89] INVALID FOR* Uncontrolled type 2 diabetes mellitus without c*INVALID FOR*05/25/2017 Essential hypertension [I10] INVALID FOR*04/25/2017 Situational depression [F43.21] INVALID FOR* Overweight (BMI 25.0-29.9) [E66.3] INVALID FOR* Vitamin D deficiency [E55.9] INVALID FOR* Type 2 diabetes mellitus with stage 4 chronic k*INVALID FOR* Prescriptions ordered this encounter Disp Refills Start End GLUCOSE 4 GRAM CHEWABLE TABLET 50 t* 1 06/15/2017 Route: ORAL Sig: Take 4 tablets by mouth as needed. Encounter Status:Closed by VERONICA (PHARMACIST)SANDEEP on 06/15/17 MANPREET Observed: 06/01/2017 Status: COMPLETED Source: [place] 12:00 AM [facility] REPOSITORY Telephone (PHMEWO) JACKIE ALVAREZ ([id number]) 1945 F Date Time Provider Department 06/01/17 VERONICA (PHARMACIST)SANDEEP RUPESH During your visit today, we recorded the following information about you: JIMI CARL 06/01/2017 3:27 PM Signed Patient calling to report SMBGs. ?? Reports taking NPH 16-0-12-0 and regular 2-4-6-0 units as prescribed? ? FBG?Pre-lunch?Pre-dinner?HS ? 06/01 138 4/11 107 186 115 69,54 4/10 129 219 210 151 4/9 122 206 150 53, 72 4/8 115 217 139 158 4/7 117 161 76 173 4/6 108 141 216 98 4/5 85 116 361 Hypoglycemia: yes How treated: 2 glucose tablets CONTINUE insulin NPH 16 units QAM, 12 units QPM; insulin regular 2-4-6 units ? Instructed patient to take at least 3 glucose tablets if BG ANDlt; 70 and re-check sugar after 10-15 min to make sure it improves ? PharmD phone call 06/08 ? Sandeep Tim Martin, YASMINES SANDEEP MARTIN PHARMACIST 06/02/2017 10:15 AM Signed Patient calling to request refills of both insulins. Sent to [facility]. Sandeep Martin PharmD, BCPS SANDEEP MARTIN PHARMACIST 06/02/2017 10:15 AM Signed Addended by: VERONICA (PHARMACIST)SANDEEP on: 06/02/2017 10:15 AM Modules accepted: Orders JIMI CARL 06/06/2017 8:36 AM Signed Addended by: VERONICA (PHARMACIST)SANDEEP on: 06/06/2017 08:36 AM Modules accepted: Orders Allergies As of Date: 06/01/2017 (No Known Allergies) Date Reviewed: 05/25/2017 Reviewed by: Herman Fry LPN - Fully Assessed Reason for Visit: Blood Sugar Reading [1269] Visit Diagnosis:Type 2 diabetes mellitus with stage 4 chronic kidney disease, without long-term current use of insulin (HCC) [E11.22, N18.4] Order(s):insulin NPH human (NOVOLIN N NPH U-100 INSULIN) injectionInject 16 units subcutaneously at breakfast and 12 units dinnerDisp: 10 mLRfl: 3 insulin regular human (HUMULIN R REGULAR U-100 INSULN) 100 unit/mL injectionInject 2 units before breakfast, 4 units before lunch and 6 units before supperDisp: 10 mLRfl: 3 blood sugar diagnostic (ACCU-CHEK AUTUMN PLUS TEST STRP) test stripUse as directed to check blood sugar 4 to 5 times daily Dx: Type 2 DM - Controlled E11.22 Insulin: YesDisp: 100 StripRfl: 11 Prescriptions as of 06/01/2017 Sig: BLOOD SUGAR DIAGNOSTIC STRIPS Use as directed to check bloo* INSULIN NPH ISOPHANE U-100 HU* Inject 16 units subcutaneousl* INSULIN U-100 REGULAR HUMAN 1* Inject 2 units before breakfa* AMLODIPINE 10 MG TABLET Take 1 tablet by mouth once d* METOPROLOL TARTRATE 25 MG TAB* Take 1 tablet by mouth twice * ATORVASTATIN 40 MG TABLET TAKE ONE TABLET BY MOUTH ONCE* ESCITALOPRAM 5 MG TABLET TAKE ONE TABLET BY MOUTH ONCE* INSULIN SYRINGE-NEEDLE U-100 * Use as directed once daily wi* LANCETS Use as directed to check bloo* CHOLECALCIFEROL (VITAMIN D3) * TAKE ONE CAPSULE BY MOUTH ONC* BLOOD-GLUCOSE METER Use as directed to check bloo* LANCETS Test blood sugar(s) 2 times d* ASPIRIN 81 MG TABLET,DELAYED * Take 1 tablet by mouth once d* Problem List As Of Date 06/01/2017 Noted Resolved HTN (hypertension) [I10] INVALID FOR* More... 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] INVALID FOR* Anemia [D64.9] INVALID FOR* Elevated serum creatinine [R79.89] INVALID FOR* Uncontrolled type 2 diabetes mellitus without c*INVALID FOR*05/25/2017 Essential hypertension [I10] INVALID FOR*04/25/2017 Situational depression [F43.21] INVALID FOR* Overweight (BMI 25.0-29.9) [E66.3] INVALID FOR* Vitamin D deficiency [E55.9] INVALID FOR* Type 2 diabetes mellitus with stage 4 chronic k*INVALID FOR* Prescriptions ordered this encounter Disp Refills Start End INSULIN NPH ISOPHANE U-100 HUMAN 100* 10 mL 3 06/02/2017 Sig: Inject 16 units subcutaneously at breakfast and 12 units dinner INSULIN U-100 REGULAR HUMAN 100 UNIT* 10 mL 3 06/02/2017 Sig: Inject 2 units before breakfast, 4 units before lunch and 6 units before supper BLOOD SUGAR DIAGNOSTIC STRIPS 100 * 11 06/06/2017 Sig: Use as directed to check blood sugar 4 to 5 times daily Dx: Type 2 DM - Controlled E11.22 Insulin: Yes Medications Discontinued During This Encounter insulin NPH human (NOVOLIN N NPH U-1* 05/04/2017 06/02/2017 Class: Med Update Sig: Inject 16 units subcutaneously at breakfast and 12 units dinner Disc: Reason for discontinue is not on file. insulin regular human (HUMULIN R REG* 05/18/2017 06/02/2017 Class: Med Update Sig: Inject 2 units before breakfast, 4 units before lunch and 6 units before supper Disc: Reason for discontinue is not on file. blood sugar diagnostic (ACCU-CHEK AV* 1 Philip* 11 04/20/2017 06/06/2017 Sig: Use as directed to check blood sugar 4 to 5 times daily Dx: Type 2 DM - Controlled E11.22 Insulin: Yes Disc: Reason for discontinue is not on file. Encounter Status:Closed by VERONICA (PHARMACIST)SANDEEP on 06/01/17 PROGRESS Observed: 05/25/2017 Status: COMPLETED Source: [place] 11:00 AM [facility] REPOSITORY HNO ID: [id number] Author: Sandeep Martin (Pharmacist) Service: (none) Author Type: Pharmacist Type: Progress Notes Filed: 05/25/2017 1:33 PM Note Text: Patient consents to pharmacy collaborative practice agreement. REASON FOR CONSULT: DM GOALS: A1c < 7% CONSULTING PROVIDER: Rocky Yao CNP Date of Consult: 11/2015 Jackie Alvarez is a 72 year old female was last seen in [facility] by PCP, Dr. Timothy Das, DO on 10/14/16. Seeing Rocky Yao as well, last saw her today. Patient is presenting today for f/u pharmacotherapy management appointment for DM. At last provider visit on 04/25 insulin NPH was increased to 16-0-12-0. Patient has been following with PharmD telephonically weekly given transportation barriers (says she can come for appointments every 2-3 months but not more often than that) On 05/18 PharmD phone call insulin regular was increased from 0-4-6 to 2-4-6 units. INTERIM HISTORY: Patient brings log sheets with her today Reports taking both insulins as prescribed Denies any low sugars Current DM Medications: Insulin NPH 16-0-12-0 units Insulin regular 2-4-6 units Current HTN Medications: Amlodipine 10mg once daily Metoprolol tartrate 25mg BID Preventative Medications: ? On LANDON/ARB: No ? On Statin: Yes ? On ASA: Yes ROS: ? Patient denies CP, SOB, HOOPER, blurred vision, dizziness or lightheadedness ? Patient denies symptoms of hypoglycemia (sweating, anxiety, palpitations, hunger, and tremor) ? Patient denies symptoms of hyperglycemia (polyuria, polydipsia, polyphagia) ? Patient denies potential medication adverse effects DIET/EXERCISE/SOCIAL Hx: ? Breakfast: cereal with milk, apple juice ? Lunch: soup and piece of bread with ham, cheese and gottlieb ? Dinner: daughter brings food home, chicken breast and mac and cheese ? Snacks: chips, sugar-free ice cream ? Following Na restrictions: no ? Beverages: water, [place]qu[place], spirte zero ? Exercise: chubby checkers at home, 30 min per day; walks dogs ? Tobacco: denies ? Alcohol: denies ? Illicits: denies MEDICATIONS: ? Pill bottles are not present. ? Adherence: denies missed doses. ? [facility] ? Rx coverage: [employer] ? Affordability: no issues ? Diabetes supplies: Accu Chek ? Organization System: pill box ACTIVE PROBLEM LIST Htn (Hypertension) Hyperlipidemia With Target Ldl Less Than 100 Migraine Ckd (Chronic Kidney Disease) Stage 4, Gfr 15-29 Ml/Min ([facility]) Eczema of Both External Ears Anemia Elevated Serum Creatinine Situational Depression Overweight (Bmi 25.0-29.9) Vitamin D Deficiency Type 2 Diabetes Mellitus With Stage 4 Chronic Kidney Disease, With Long-Term Current Use of Insulin ([facility]) PAST MEDICAL HISTORY Diagnosis Date - Anemia - Chronic airway obstruction, not elsewhere classified - CKD (chronic kidney disease) stage 4, GFR 15-29 ml/min ([facility]) [facility] - Colovesical fistula 05/13/2011 - Debility, unspecified - Difficulty in walking(719.7) - Lumbago - Menopause age 48 - Muscle weakness (generalized) - Obesity, unspecified - Other and unspecified hyperlipidemia - Type II or unspecified type diabetes mellitus without mention of complication, not stated as uncontrolled - Unspecified essential hypertension - Urinary tract infection, site not specified ALLERGIES No Known Allergies Current Outpatient Prescriptions: insulin regular human (HUMULIN R REGULAR U-100 INSULN) 100 unit/mL injection Inject 2 units before breakfast, 4 units before lunch and 6 units before supper insulin NPH human (NOVOLIN N NPH U-100 INSULIN) injection Inject 16 units subcutaneously at breakfast and 12 units dinner blood sugar diagnostic (ACCU-CHEK AUTUMN PLUS TEST STRP) test strip Use as directed to check blood sugar 4 to 5 times daily Dx: Type 2 DM - Controlled E11.22 Insulin: Yes atorvastatin (LIPITOR) 40 mg tablet TAKE ONE TABLET BY MOUTH ONCE DAILY escitalopram oxalate (LEXAPRO) 5 mg tablet TAKE ONE TABLET BY MOUTH ONCE DAILY Insulin Syringe-Needle U-100 0.3 mL 31 gauge x 5/16 syrg Use as directed once daily with insulin Lancets (ACCU-CHEK SOFTCLIX LANCETS) lancets Use as directed to check blood sugar 1 to 2 times daily Dx: Type 2 DM - Controlled Insulin: Yes Cholecalciferol, Vitamin D3, 5,000 unit cap TAKE ONE CAPSULE BY MOUTH ONCE DAILY amLODIPine (NORVASC) 10 mg tablet Take 1 tablet by mouth once daily. metoprolol tartrate, short acting, (LOPRESSOR) 25 mg tablet Take 1 tablet by mouth twice daily. Blood-Glucose Meter (ACCU-CHEK AUTUMN PLUS METER) misc Use as directed to check blood sugar 1 to 2 times daily Dx: Type 2 DM - Controlled . ?Insulin: Yes Lancets lancets Test blood sugar(s) 2 times daily. Dx: Type 2 DM - Controlled Insulin: Yes aspirin, enteric coated (ADULT LOW DOSE ASPIRIN) 81 mg EC tablet Take 1 tablet by mouth once daily. No current facility-administered medications for this visit. Rx meds not listed in EPIC: none OTCs: none Herbals: none GLYCEMIC CONTROL: ? Glucometer present at visit: Yes ? SMBG?s: Date Fasting AM 2 hr PP Before Lunch 2 hr PP Before Dinner 2 hr PP Bedtime 05/25 85 4/ 137 178 180 124 05/23 121 221 227 243 05/22 91 81 119 180 05/21 94 188 88 138 05/20 88 191 105 286 05/19 92 263 137 91 ? Hypoglycemia: no VITALS: BP 142/79 Pulse 80 Last 3 Encounter BP Readings: Date: BP: 05/25/2017 152/90 04/25/2017 146/78 03/20/2017 144/82 Wt: 84.8 kg (187 lb) BMI: 29.29 kg/(m2) LABS Lab Results Component Value Date HBA1C 9.3 05/13/2017 HBA1C 11.4 03/20/2017 HBA1C 10.4 12/09/2016 CMP: Glucose 115 05/13/2017 BUN 33 05/13/2017 Creatinine 1.96 05/13/2017 Sodium 142 05/13/2017 Potassium 4.6 05/13/2017 Chloride 103 05/13/2017 CO2 25 05/13/2017 Protein, Total 7.2 05/13/2017 Albumin 4.0 05/13/2017 Calcium 9.5 05/13/2017 Alkaline Phosphatase 60 05/13/2017 Bilirubin, Total 0.3 05/13/2017 AST 26 05/13/2017 ALT 21 05/13/2017 Estimated Creatinine Clearance: 28.2 mL/min (based on Cr of 1.96). Last Lipid Panel Lab Results Component Value Date CHOL 148 12/09/2016 Lab Results Component Value Date HDL 66 12/09/2016 Lab Results Component Value Date LDL 52 12/09/2016 Lab Results Component Value Date TG 149 12/09/2016 Albumin/Creat Ratio (mg/g) Date Value 03/28/2017 99 (H) PHARMACOTHERAPY ASSESSMENT/PLAN: 1. Type 2 diabetes mellitus with stage 4 chronic kidney disease, without long-term current use of insulin ([facility]) - ICD9: 250.40, 585.4, ICD10: E11.22, N18.4 (primary diagnosis) A1c goal < 7% per consult (could consider goal <8% d/t age), patient is not at goal but improving (9.3% on 05/13/17). FBGs at goal and PPBGs mostly at goal (pre-lunch BGs much improved since addition of small amount of prandial insulin with breakfast). Conservative insulin dosing given recent issues with hypoglycemia. Patient compliant with and tolerating current regimen. Will continue at this time and follow weekly with PharmD telephonically. Not a metformin candidate d/t renal fxn. Renal fxn reduced but stable and LFTs WNL and appropriate for continued therapy ? CONTINUE insulin NPH 16 units QAM, 12 units QPM; insulin regular 2-4-6 units ? Instructed patient to continue checking pre-meal sugars every day and record on new log sheets (4 weeks worth given in case of change in dose, will mail subsequent log sheets when needed) 2. Essential hypertension - ICD9: 401.9, ICD10: I10 BP goal < 140/90, pt is almost at goal on current therapy. Uncertain of patient's level of compliance, so refilled both prescriptions today. Would consider small dose of LANDON inhibitor given albuminuria however, per chart review, patient with dry cough with therapy in the past. Could consider ARB instead. Patient had followed with Nephrology in the past, will have to check if that is still the case. Pulse WNL, renal fxn reduced but stable, K+ WNL and appropriate for continued therapy. ? CONTINUE amlodipine 10mg once daily and metoprolol tartrate 25mg BID ? Instructed patient to check BP at home few days per week 3. Hyperlipidemia with target LDL less than 100 - ICD9: 272.4, ICD10: E78.5 Pt is on appropriate statin intensity (high intensity d/t DM and ASCVD risk score 34.4%). Patient compliant with and tolerating current regimen. Will continue. LFTs WNL and renal fxn reduced but stable and appropriate for continued therapy ? CONTINUE atorvastatin 40mg once daily Health Maintenance issues addressed: DILATED RETINAL EXAM due on 07/15/2016 DIABETIC FOOT EXAM due on 05/06/2017 Patient is scheduled to see PCP 07/25/17. Patient to return to clinic for PharmD f/u when she gets next labwork (end of July) to help consolidate visits. Patient verbalized understanding of instructions. Sandeep Martin PharmD, [facility] CNOV Observed: 05/25/2017 Status: COMPLETED Source: [place] 11:00 AM [facility] REPOSITORY Office Visit (PHMEWO) JACKIE ALVAREZ ([id number]) 1945 F Date Time Provider Department 05/25/17 11:00 AM VERONICA (PHARMACIST), SANDEEP LI During your visit today, we recorded the following information about you: Pulse Blood pressure 80/minute 142/79 JIMI CARL 05/25/2017 1:33 PM Signed Patient consents to pharmacy collaborative practice agreement. REASON FOR CONSULT: DM GOALS: A1c ANDlt; 7% CONSULTING PROVIDER: Rocky Yao CNP Date of Consult: 11/2015 Jackie Alvarez is a 72 year old female was last seen in [facility] by PCP, Dr. Timothy Das DO on 10/14/16. Seeing Rocky Yao as well, last saw her today. Patient is presenting today for f/u pharmacotherapy management appointment for DM. At last provider visit on 04/25 insulin NPH was increased to 16-0-12-0. Patient has been following with PharmD telephonically weekly given transportation barriers (says she can come for appointments every 2-3 months but not more often than that) On 05/18 PharmD phone call insulin regular was increased from 0-4-6 to 2-4-6 units. INTERIM HISTORY: Patient brings log sheets with her today Reports taking both insulins as prescribed Denies any low sugars Current DM Medications: Insulin NPH 16-0-12-0 units Insulin regular 2-4-6 units Current HTN Medications: Amlodipine 10mg once daily Metoprolol tartrate 25mg BID Preventative Medications: ? On LANDON/ARB: No ? On Statin: Yes ? On ASA: Yes ROS: ? Patient denies CP, SOB, HOOPER, blurred vision, dizziness or lightheadedness ? Patient denies symptoms of hypoglycemia (sweating, anxiety, palpitations, hunger, and tremor) ? Patient denies symptoms of hyperglycemia (polyuria, polydipsia, polyphagia) ? Patient denies potential medication adverse effects DIET/EXERCISE/SOCIAL Hx: ? Breakfast: cereal with milk, apple juice ? Lunch: soup and piece of bread with ham, cheese and gottlieb ? Dinner: daughter brings food home, chicken breast and mac and cheese ? Snacks: chips, sugar-free ice cream ? Following Na restrictions: no ? Beverages: water, nesquik, spirte zero ? Exercise: chubby checkers at home, 30 min per day; walks dogs ? Tobacco: denies ? Alcohol: denies ? Illicits: denies MEDICATIONS: ? Pill bottles are not present. ? Adherence: denies missed doses. ? [facility] ? Rx coverage: [employer] ? Affordability: no issues ? Diabetes supplies: Accu Chek ? Organization System: pill box ACTIVE PROBLEM LIST Htn (Hypertension) Hyperlipidemia With Target Ldl Less Than 100 Migraine Ckd (Chronic Kidney Disease) Stage 4, Gfr 15-29 Ml/Min (Hcc) Eczema of Both External Ears Anemia Elevated Serum Creatinine Situational Depression Overweight (Bmi 25.0-29.9) Vitamin D Deficiency Type 2 Diabetes Mellitus With Stage 4 Chronic Kidney Disease, With Long-Term Current Use of Insulin (Hcc) PAST MEDICAL HISTORY Diagnosis Date - Anemia - Chronic airway obstruction, not elsewhere classified - CKD (chronic kidney disease) stage 4, GFR 15-29 ml/min (HCC) [facility] - Colovesical fistula 05/13/2011 - Debility, unspecified - Difficulty in walking(719.7) - Lumbago - Menopause age 48 - Muscle weakness (generalized) - Obesity, unspecified - Other and unspecified hyperlipidemia - Type II or unspecified type diabetes mellitus without mention of complication, not stated as uncontrolled - Unspecified essential hypertension - Urinary tract infection, site not specified ALLERGIES No Known Allergies Current Outpatient Prescriptions: insulin regular human (HUMULIN R REGULAR U-100 INSULN) 100 unit/mL injection Inject 2 units before breakfast, 4 units before lunch and 6 units before supper insulin NPH human (NOVOLIN N NPH U-100 INSULIN) injection Inject 16 units subcutaneously at breakfast and 12 units dinner blood sugar diagnostic (ACCU-CHEK AUTUMN PLUS TEST STRP) test strip Use as directed to check blood sugar 4 to 5 times daily Dx: Type 2 DM - Controlled Insulin: Yes atorvastatin (LIPITOR) 40 mg tablet TAKE ONE TABLET BY MOUTH ONCE DAILY escitalopram oxalate (LEXAPRO) 5 mg tablet TAKE ONE TABLET BY MOUTH ONCE DAILY Insulin Syringe-Needle U-100 0.3 mL 31 gauge x 5/16 syrg Use as directed once daily with insulin Lancets (ACCU-CHEK SOFTCLIX LANCETS) lancets Use as directed to check blood sugar 1 to 2 times daily Dx: Type 2 DM - Controlled Insulin: Yes Cholecalciferol, Vitamin D3, 5,000 unit cap TAKE ONE CAPSULE BY MOUTH ONCE DAILY amLODIPine (NORVASC) 10 mg tablet Take 1 tablet by mouth once daily. metoprolol tartrate, short acting, (LOPRESSOR) 25 mg tablet Take 1 tablet by mouth twice daily. Blood-Glucose Meter (ACCU-CHEK AUTUMN PLUS METER) misc Use as directed to check blood sugar 1 to 2 times daily Dx: Type 2 DM - Controlled ?Insulin: Yes Lancets lancets Test blood sugar(s) 2 times daily. Dx: Type 2 DM - Controlled Insulin: Yes aspirin, enteric coated (ADULT LOW DOSE ASPIRIN) 81 mg EC tablet Take 1 tablet by mouth once daily. No current facility-administered medications for this visit. Rx meds not listed in EPIC: none OTCs: none Herbals: none GLYCEMIC CONTROL: ? Glucometer present at visit: Yes ? SMBG?s: Date Fasting AM 2 hr PP Before Lunch 2 hr PP Before Dinner 2 hr PP Bedtime 4/5 85 05/24 137 178 180 124 05/23 121 221 227 243 05/22 91 81 119 180 05/21 94 188 88 138 05/20 88 191 105 286 05/19 92 263 137 91 ? Hypoglycemia: no VITALS: BP 142/79 Pulse 80 Last 3 Encounter BP Readings: Date: BP: 05/25/2017 152/90 04/25/2017 146/78 03/20/2017 144/82 Wt: 84.8 kg (187 lb) BMI: 29.29 kg/(m2) LABS Lab Results Component Value Date HBA1C 9.3 05/13/2017 HBA1C 11.4 03/20/2017 HBA1C 10.4 12/09/2016 CMP: Glucose 115 05/13/2017 BUN 33 05/13/2017 Creatinine 1.96 05/13/2017 Sodium 142 05/13/2017 Potassium 4.6 05/13/2017 Chloride 103 05/13/2017 CO2 25 05/13/2017 Protein, Total 7.2 05/13/2017 Albumin 4.0 05/13/2017 Calcium 9.5 05/13/2017 Alkaline Phosphatase 60 05/13/2017 Bilirubin, Total 0.3 05/13/2017 AST 26 05/13/2017 ALT 21 05/13/2017 Estimated Creatinine Clearance: 28.2 mL/min (based on Cr of 1.96). Last Lipid Panel Lab Results Component Value Date CHOL 148 12/09/2016 Lab Results Component Value Date HDL 66 12/09/2016 Lab Results Component Value Date LDL 52 12/09/2016 Lab Results Component Value Date TG 149 12/09/2016 Albumin/Creat Ratio (mg/g) Date Value 03/28/2017 99 (H) PHARMACOTHERAPY ASSESSMENT/PLAN: 1. Type 2 diabetes mellitus with stage 4 chronic kidney disease, without long-term current use of insulin ([facility]) - ICD9: 250.40, 585.4, ICD10: E11.22, N18.4 (primary diagnosis) A1c goal ANDlt; 7% per consult (could consider goal ANDlt;8% d/t age), patient is not at goal but improving (9.3% on 05/13/17). FBGs at goal and PPBGs mostly at goal (pre-lunch BGs much improved since addition of small amount of prandial insulin with breakfast). Conservative insulin dosing given recent issues with hypoglycemia. Patient compliant with and tolerating current regimen. Will continue at this time and follow weekly with PharmD telephonically. Not a metformin candidate d/t renal fxn. Renal fxn reduced but stable and LFTs WNL and appropriate for continued therapy ? CONTINUE insulin NPH 16 units QAM, 12 units QPM; insulin regular 2-4-6 units ? Instructed patient to continue checking pre-meal sugars every day and record on new log sheets (4 weeks worth given in case of change in dose, will mail subsequent log sheets when needed) 2. Essential hypertension - ICD9: 401.9, ICD10: I10 BP goal ANDlt; 140/90, pt is almost at goal on current therapy. Uncertain of patient's level of compliance, so refilled both prescriptions today. Would consider small dose of LANDON inhibitor given albuminuria however, per chart review, patient with dry cough with therapy in the past. Could consider ARB instead. Patient had followed with Nephrology in the past, will have to check if that is still the case. Pulse WNL, renal fxn reduced but stable, K+ WNL and appropriate for continued therapy. ? CONTINUE amlodipine 10mg once daily and metoprolol tartrate 25mg BID ? Instructed patient to check BP at home few days per week 3. Hyperlipidemia with target LDL less than 100 - ICD9: 272.4, ICD10: E78.5 Pt is on appropriate statin intensity (high intensity d/t DM and ASCVD risk score 34.4%). Patient compliant with and tolerating current regimen. Will continue. LFTs WNL and renal fxn reduced but stable and appropriate for continued therapy ? CONTINUE atorvastatin 40mg once daily Health Maintenance issues addressed: DILATED RETINAL EXAM due on 07/15/2016 DIABETIC FOOT EXAM due on 05/06/2017 Patient is scheduled to see PCP 07/25/17. Patient to return to clinic for PharmD f/u when she gets next labwork (july) to help consolidate visits. Patient verbalized understanding of instructions. Sandeep Martin, PharmD, [facility] SANDEEP MARTIN, PHARMACIST 05/25/2017 12:26 PM Signed Appointment with Rocky for july Referring Provider: TIMOTHY DAS [[id number]] Allergies As of Date: 05/25/2017 (No Known Allergies) Date Reviewed: 05/25/2017 Reviewed by: Herman Fry LPN - Fully Assessed Reason for Visit: Allied Health Visit [5] Cmt: DM follow-up Primary Visit Diagnosis:Type 2 diabetes mellitus with stage 4 chronic kidney disease, without long-term current use of insulin (HCC) [E11.22, N18.4] Other Visit Diagnoses:Essential hypertension [I10] Hyperlipidemia with target LDL less than 100 [E78.5] Order(s):amLODIPine (NORVASC) 10 mg tabletTake 1 tablet by mouth once daily.Disp: 90 tabletRfl: 3 metoprolol tartrate, short acting, (LOPRESSOR) 25 mg tabletTake 1 tablet by mouth twice daily.Disp: 180 tabletRfl: 3 BASIC METABOLIC PNL [SQBMP] Order #: [id number] FUTURE HGB A1C [[id number]] Order #: [id number] FUTURE Prescriptions as of 05/25/2017 Sig: AMLODIPINE 10 MG TABLET Take 1 tablet by mouth once d* METOPROLOL TARTRATE 25 MG TAB* Take 1 tablet by mouth twice * INSULIN U-100 REGULAR HUMAN 1* Inject 2 units before breakfa* INSULIN NPH ISOPHANE U-100 HU* Inject 16 units subcutaneousl* ATORVASTATIN 40 MG TABLET TAKE ONE TABLET BY MOUTH ONCE* ESCITALOPRAM 5 MG TABLET TAKE ONE TABLET BY MOUTH ONCE* ASPIRIN 81 MG TABLET,DELAYED * Take 1 tablet by mouth once d* BLOOD SUGAR DIAGNOSTIC STRIPS Use as directed to check bloo* INSULIN SYRINGE-NEEDLE U-100 * Use as directed once daily wi* LANCETS Use as directed to check bloo* CHOLECALCIFEROL (VITAMIN D3) * TAKE ONE CAPSULE BY MOUTH ONC* BLOOD-GLUCOSE METER Use as directed to check bloo* LANCETS Test blood sugar(s) 2 times d* Problem List As Of Date 05/25/2017 Noted Resolved HTN (hypertension) [I10] INVALID FOR* More... 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] INVALID FOR* Anemia [D64.9] INVALID FOR* Elevated serum creatinine [R79.89] INVALID FOR* Uncontrolled type 2 diabetes mellitus without c*INVALID FOR*05/25/2017 Essential hypertension [I10] INVALID FOR*04/25/2017 Situational depression [F43.21] INVALID FOR* Overweight (BMI 25.0-29.9) [E66.3] INVALID FOR* Vitamin D deficiency [E55.9] INVALID FOR* Type 2 diabetes mellitus with stage 4 chronic k*INVALID FOR* Other instructions from your clinician: Appointment with Rocky schmidt end july Prescriptions ordered this encounter Disp Refills Start End AMLODIPINE 10 MG TABLET 90 t* 3 05/25/2017 Route: ORAL Sig: Take 1 tablet by mouth once daily. METOPROLOL TARTRATE 25 MG TABLET 180 * 3 05/25/2017 Route: ORAL Sig: Take 1 tablet by mouth twice daily. Medications Discontinued During This Encounter amLODIPine (NORVASC) 10 mg tablet 90 t* 3 03/17/2016 05/25/2017 Route: ORAL Sig: Take 1 tablet by mouth once daily. Disc: Reason for discontinue is not on file. Cosign accepted by ROCKY YAO CNP[[id number]] on 03/17/2016 4:27 PM metoprolol tartrate, short acting, (* 180 * 3 03/17/2016 05/25/2017 Route: ORAL Sig: Take 1 tablet by mouth twice daily. Disc: Reason for discontinue is not on file. Cosign accepted by ROCKY YAO CNP[[id number]] on 03/17/2016 4:27 PM Encounter Status:Closed by VERONICA (PHARMACIST)SANDEEP on 05/25/17 PROGRESS Observed: 05/25/2017 Status: COMPLETED Source: [place] 10:44 AM [facility] REPOSITORY [facility] ID: [id number] Author: Rocky Sánchez (Porter) Maximilian Service: (none) Author Type: Nurse Practitioner Type: Progress Notes Filed: 05/25/2017 4:38 PM Note Text: This note was created using RateElertriter. Subjective Jackie Alvarez is a 72 year old female who presents for diabetes follow up. Patient has been taking medication daily, as well as keeping blood sugar records. Patient denies chest pain, sob, syncope, or dizziness. Review of Systems Constitutional: Negative for activity change, appetite change, chills, diaphoresis, fatigue, fever and unexpected weight change. Respiratory: Negative for apnea, cough, choking, chest tightness, shortness of breath, wheezing and stridor. Cardiovascular: Negative for chest pain, palpitations and leg swelling. Gastrointestinal: Negative for abdominal distention, abdominal pain, anal bleeding, blood in stool, constipation, diarrhea, nausea, rectal pain and vomiting. Endocrine: Positive for cold intolerance, polydipsia, polyphagia and polyuria. Negative for heat intolerance. Genitourinary: Negative for decreased urine volume, difficulty urinating, dyspareunia, dysuria, enuresis, flank pain, frequency, genital sores, hematuria, menstrual problem, pelvic pain, urgency, vaginal bleeding, vaginal discharge and vaginal pain. Neurological: Negative for dizziness, tremors, seizures, syncope, facial asymmetry, speech difficulty, weakness, light-headedness, numbness and headaches. Objective BP 152/90 Pulse 84 Resp 16 Wt 84.8 kg (187 lb) BMI 29.29 kg/m2 Physical Exam HENT: Nose: Nose normal. Eyes: Conjunctivae, EOM and lids are normal. Pupils are equal, round, and reactive to light. Lids are everted and swept, no foreign bodies found. Neck: Normal range of motion. Neck supple. Cardiovascular: Normal rate, regular rhythm, S1 normal, S2 normal and normal heart sounds. Exam reveals no gallop, no distant heart sounds and no friction rub. Pulmonary/Chest: Effort normal and breath sounds normal. She has no decreased breath sounds. She has no wheezes. She has no rhonchi. She has no rales. DM foot exam: shoes and socks removed, No deformities, ulcers, calluses, normal distal pulses, neuropathies were present on bilateral feet. Patient educated on diabetic foot care. ASSESSMENT/PLAN: 1. Type 2 diabetes mellitus with stage 4 chronic kidney disease, with long-term current use of insulin (HCC) - ICD9: 250.40, 585.4, V58.67, ICD10: E11.22, N18.4, Z79.4 (primary diagnosis) uncontrolled - Continue current medications - Follow up in 3 months, sooner should any other issues arise. - appt with PharmD today for further recommendations 2. Essential hypertension - ICD9: 401.9, ICD10: I10 - appt with PharmD today for further recommendations 3. Need for vaccination - ICD9: V05.9, ICD10: Z23 - TETANUS/DIPTHERIA BOOSTER (OVER 7), PF IM Rocky Yao APRN.CNP CNOV Observed: 05/25/2017 Status: COMPLETED Source: [place] 10:40 AM [facility] REPOSITORY Office Visit (FAMPWS) JACKIE ALVAREZ ([id number]) 1945 F Date Time Provider Department 05/25/17 10:40 AM ROCKY YAO (PORTER) FAMPWS During your visit today, we recorded the following information about you: Pulse Respiration Blood pressure Weight 84/minute 16/minute 152/90 84.8 kg Rocky Yao APRN.CNP 05/25/2017 4:38 PM Signed This note was created using RateElertriter. Subjective Jackie Alvarez is a 72 year old female who presents for diabetes follow up. Patient has been taking medication daily, as well as keeping blood sugar records. Patient denies chest pain, sob, syncope, or dizziness. Review of Systems Constitutional: Negative for activity change, appetite change, chills, diaphoresis, fatigue, fever and unexpected weight change. Respiratory: Negative for apnea, cough, choking, chest tightness, shortness of breath, wheezing and stridor. Cardiovascular: Negative for chest pain, palpitations and leg swelling. Gastrointestinal: Negative for abdominal distention, abdominal pain, anal bleeding, blood in stool, constipation, diarrhea, nausea, rectal pain and vomiting. Endocrine: Positive for cold intolerance, polydipsia, polyphagia and polyuria. Negative for heat intolerance. Genitourinary: Negative for decreased urine volume, difficulty urinating, dyspareunia, dysuria, enuresis, flank pain, frequency, genital sores, hematuria, menstrual problem, pelvic pain, urgency, vaginal bleeding, vaginal discharge and vaginal pain. Neurological: Negative for dizziness, tremors, seizures, syncope, facial asymmetry, speech difficulty, weakness, light-headedness, numbness and headaches. Objective BP 152/90 Pulse 84 Resp 16 Wt 84.8 kg (187 lb) BMI 29.29 kg/m2 Physical Exam HENT: Nose: Nose normal. Eyes: Conjunctivae, EOM and lids are normal. Pupils are equal, round, and reactive to light. Lids are everted and swept, no foreign bodies found. Neck: Normal range of motion. Neck supple. Cardiovascular: Normal rate, regular rhythm, S1 normal, S2 normal and normal heart sounds. Exam reveals no gallop, no distant heart sounds and no friction rub. Pulmonary/Chest: Effort normal and breath sounds normal. She has no decreased breath sounds. She has no wheezes. She has no rhonchi. She has no rales. DM foot exam: shoes and socks removed, No deformities, ulcers, calluses, normal distal pulses, neuropathies were present on bilateral feet. Patient educated on diabetic foot care. ASSESSMENT/PLAN: 1. Type 2 diabetes mellitus with stage 4 chronic kidney disease, with long-term current use of insulin (HCC) - ICD9: 250.40, 585.4, V58.67, ICD10: E11.22, N18.4, Z79.4 (primary diagnosis) uncontrolled - Continue current medications - Follow up in 3 months, sooner should any other issues arise. - appt with PharmD today for further recommendations 2. Essential hypertension - ICD9: 401.9, ICD10: I10 - appt with PharmD today for further recommendations 3. Need for vaccination - ICD9: V05.9, ICD10: Z23 - TETANUS/DIPTHERIA BOOSTER (OVER 7), PF IM Rocky Yao APRN.[employer] Referring Provider: ROCKY YAO ([facility]) [[id number]] Allergies As of Date: 05/25/2017 (No Known Allergies) Date Reviewed: 05/25/2017 Reviewed by: Herman rFy LPN - Fully Assessed Reason for Visit: Recheck [92] Cmt: 1 month follow up Primary Visit Diagnosis:Type 2 diabetes mellitus with stage 4 chronic kidney disease, with long-term current use of insulin (HCC) [E11.22, N18.4, Z79.4] Other Visit Diagnoses:Essential hypertension [I10] Need for vaccination [Z23] Order(s):TETANUS/DIPTHERIA BOOSTER (OVER 7), PF IM [[id number]] Order #: [id number] Prescriptions as of 05/25/2017 Sig: INSULIN U-100 REGULAR HUMAN 1* Inject 2 units before breakfa* INSULIN NPH ISOPHANE U-100 HU* Inject 16 units subcutaneousl* BLOOD SUGAR DIAGNOSTIC STRIPS Use as directed to check bloo* ATORVASTATIN 40 MG TABLET TAKE ONE TABLET BY MOUTH ONCE* ESCITALOPRAM 5 MG TABLET TAKE ONE TABLET BY MOUTH ONCE* INSULIN SYRINGE-NEEDLE U-100 * Use as directed once daily wi* LANCETS Use as directed to check bloo* CHOLECALCIFEROL (VITAMIN D3) * TAKE ONE CAPSULE BY MOUTH ONC* X AMLODIPINE 10 MG TABLET Take 1 tablet by mouth once d* X METOPROLOL TARTRATE 25 MG TAB* Take 1 tablet by mouth twice * BLOOD-GLUCOSE METER Use as directed to check bloo* LANCETS Test blood sugar(s) 2 times d* ASPIRIN 81 MG TABLET,DELAYED * Take 1 tablet by mouth once d* Problem List As Of Date 05/25/2017 Noted Resolved HTN (hypertension) [I10] INVALID FOR* More... 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] INVALID FOR* Anemia [D64.9] INVALID FOR* Elevated serum creatinine [R79.89] INVALID FOR* Uncontrolled type 2 diabetes mellitus without c*INVALID FOR*05/25/2017 Essential hypertension [I10] INVALID FOR*04/25/2017 Situational depression [F43.21] INVALID FOR* Overweight (BMI 25.0-29.9) [E66.3] INVALID FOR* Vitamin D deficiency [E55.9] INVALID FOR* Type 2 diabetes mellitus with stage 4 chronic k*INVALID FOR* Encounter Status:Closed by ROCKY YAO CNP on 05/25/17 CBC AND DIFFERENTIAL Collected: 05/13/2017 Status: F Source: [place] 7:51 AM [facility] REPOSITORY TYPE CODE TESTS RESULT OUT OF REFERENCE UNITS RANGE LAB WBC 3.70-11.00 k/uL WBC 5.49 LAB RBC 3.90-5.20 m/uL RBC 4.65 LAB HGB 11.5-15.5 g/dL Hemoglobin 13.0 LAB HCT 36.0-46.0 % Hematocrit 42.5 LAB MCV 80.0-100.0 fL MCV 91.4 LAB MCH 26.0-34.0 pG MCH 28.0 LAB MCHC 30.5-36.0 g/dL MCHC 30.6 LAB RDWCV 11.5-15.0 % RDW-CV 14.0 LAB PLTCT 150-400 k/uL Platelet Count 228 LAB MPV 9.0-12.7 fL MPV 10.4 LAB ANEUT % Neut% 59.0 LAB AANEUT 1.45-7.50 k/uL Abs Neut 3.23 LAB ALYMP % Lymph% 29.7 LAB AALYMP 1.00-4.00 k/uL Abs Lymph 1.63 LAB AMONO % Henry% 7.3 LAB AAMONO <0.87 k/uL Abs Henry 0.40 LAB AEOS % Eosin% 3.3 LAB AAEOS <0.46 k/uL Abs Eosin 0.18 LAB ABASO % Baso% 0.7 LAB AABASO <0.11 k/uL Abs Baso 0.04 LAB AUNRBC 0 /100 WBC NRBCs 0.0 LAB ABNRBC <0.01 k/uL Absolute nRBC <0.01 LAB DTYP DTYPE Auto Diff Performed By: #### CBCDIF, CMP, HBA1C #### [facility] [address] [place], [place] [address] COMP METABOLIC PANEL Collected: 05/13/2017 Status: F Source: [place] 7:51 AM [facility] REPOSITORY TYPE CODE TESTS RESULT OUT OF REFERENCE UNITS RANGE LAB TP 6.3-8.0 g/dL Protein, Total 7.2 LAB ALB 3.9-4.9 g/dL Albumin 4.0 LAB CA 8.5-10.2 mg/dL Calcium, Total 9.5 LAB TBIL 0.2-1.3 mg/dL Bilirubin, Total 0.3 LAB ALKP 32-117 U/L Alkaline Phosphatase 60 LAB AST 13-35 U/L AST 26 LAB GLU 74-99 mg/dL Glucose High 115 Result Comment: The [place] Diabetes Association (ADA) provides guidance for cutoff values for fasting glucose and random glucose. The ADA defines fasting as no caloric intake for at least 8 hours. Fas ting plasma glucose results between 100 to 125 mg/dL indicate increased risk for diabetes (prediabetes). Fasting plasma glucose results greater than or equal to 126 mg/dL meet the criteria for diagnosis of diabetes. In the absence of unequivocal hyperglycemia, results should be confirmed by repeat testing. In a patient with classic symptoms of hyperglycemia or hyperglycemic crisis, random plasma glucose results greater than or equal to 200 mg/dL meet the criteria for diagnosis of diabetes. Reference: Standards of Medical Care in Diabetes 2016, [place] Diabetes Association. Diabetes Care. 2016.39(Suppl 1). LAB BUN 7-21 mg/dL BUN High 33 LAB CRET 0.58-0.96 mg/dL Creatinine High 1.96 LAB NA 136-144 mmol/L Sodium 142 LAB K 3.7-5.1 mmol/L Potassium 4.6 LAB CL 97-105 mmol/L Chloride 103 LAB CO2 22-30 mmol/L CO2 25 LAB AGAP 9-18 mmol/L Anion Gap 14 LAB ALT 7-38 U/L ALT 21 LAB GFRAA eGFR- Amer. 30 LAB GFRNAA . eGFR-All Other Races 25 Result Comment: eGFR (Estimated GFR) Units of measure: mL/min/1.73 meters squared eGFR is derived from the reexpressed MDRD Study equation using the following parameters: serum creatinine, age, gender and race. The creatinine assay has been calibrated to be traceable to IDMS. An eGFR <60 mL/min/1.73m2 for >3 months is consistent with chronic kidney disease. Refer to KDOQI guidelines for clinical interpretation. In patients with unstable renal function, e.g. those with acute kidney injury, the eGFR may not accurately reflect actual GFR. Performed By: #### CBCDIF, CMP, HBA1C #### [facility] [address] [place], [place] [address] HEMOGLOBIN A1C Collected: 05/13/2017 Status: F Source: [place] 7:51 AM [facility] REPOSITORY TYPE CODE TESTS RESULT OUT OF REFERENCE UNITS RANGE LAB HGBA1C 4.3-5.6 % High Hemoglobin A1c 9.3 LAB HBA0 mg/dL Est. Average Glucose 220 Result Comment: eAG: (Estimated average glucose) is a calculated value from HgbA1c and is public service representative of the average blood glucose level in the last 2-3 month period. Performed By: #### CBCDIF, CMP, HBA1C #### [facility] [address] [place], [place] [address] ALT Collected: 05/13/2017 Status: F Source: [place] 7:51 AM [facility] REPOSITORY TYPE CODE TESTS RESULT OUT OF RANGE REFERENCE UNITS LAB ALT 7-38 U/L ALT 21 Performed By: #### ALT, CK #### [facility] [address] [place], [place] [address] CK Collected: 05/13/2017 Status: F Source: [facility] 7:51 AM [facility]IN CAMPUS REPOSITORY TYPE CODE TESTS RESULT OUT OF RANGE REFERENCE UNITS LAB CK 42-196 U/L CK 72 Result Comment: Please note the updated, gender-specific reference range for this test (effective 02/04/2016). Performed By: #### ALT, CK #### [address] [address] PROGRESS Observed: 04/25/2017 Status: COMPLETED Source: [place] 9:48 AM [facility] REPOSITORY [facility] ID: [id number] Author: Rocky Sánchez (Lead Driver) PORTER Yao Service: (none) Author Type: Nurse Practitioner Type: Progress Notes Filed: 04/25/2017 10:24 AM Note Text: HPI/CC: Jackie Alvarez is a 72 year old female who presents to the office today for review of health conditions. Ms. Alvarez has past history of diabetes, hyperlipidemia and hypertension. DM: Since our last visit she denies excessive thirst or increased frequency of urination, chest pain or dyspnea , numbness, tingling or pain in extremities, new or unusual visual symptoms and low sugar/hypoglycemic reactions. + Weight gain. Follows a diabetic diet some of the time- patient reports not eating 3 meals a day, she eats when she is hungry. She is compliant with medication(s) and is tolerating med(s) without any side effects. She reports checking her glucose on a three times a day schedule with sugars in the AM fasting 101-136 range. Bedtime fasting 134-378. Admits to drinking chocolate milk most days of the week. Admits to cheating om her blood glucose numbers. Daughter is now keeping track of her glucose numbers. Patient's last HgA1C was Hemoglobin A1C (%) Date Value 03/20/2017 11.4 12/09/2016 10.4 ) Hyperlipidemia. Current therapy includes atorvastatin (Lipitor) 40 mg. Denies side effects of muscle weakness or achiness. Her most recent lipid panels are reviewed. Cholesterol, Total (mg/dL) Date Value 12/09/2016 148 HDL Cholesterol (mg/dL) Date Value 12/09/2016 66 LDL Cholesterol (mg/dL) Date Value 12/09/2016 52 Triglyceride (mg/dL) Date Value 12/09/2016 149 Hypertension: states that she is feeling well and denies any symptoms referable to elevated blood pressure. Specifically denies headache, chest pain, palpitations, dyspnea and peripheral edema. Patient denies any side effects of her medication(s) and is compliant with their regimen. Last 3 Encounter BP Readings: Date: BP: 04/25/2017 146/78 03/20/2017 144/82 01/09/2017 152/90 She watches her diet for sodium, low fat and low cholesterol some of the time. She does check BP's away from this office with average BP's in the normal range range. Jackie denies regular aerobic exercise. REVIEW OF SYSTEMS: as above Reviewed relevant PMHx, PSHx, Social Hx, current medications and allergies. PHYSICAL EXAMINATION: BP 146/78 Pulse 88 Resp 16 Wt 86.2 kg (190 lb) BMI 29.76 kg/m2 General appearance: Well appearing, alert, in no acute distress, well-hydrated, well nourished. Patient reported not feeling well, like her BG was low. Skin: Skin color, texture, turgor normal, no suspicious rashes or lesions Lungs: Lungs clear to auscultation. No wheezing, rhonchi, rales Heart: RRR without murmur, gallop, or rubs. No ectopy. ASSESSMENT/PLAN: 1. Type 2 diabetes mellitus with stage 4 chronic kidney disease, without long-term current use of insulin (HCC) - ICD9: 250.40, 585.4, ICD10: E11.22, N18.4 (primary diagnosis) uncontrolled - Increase NPH Insulin 16 units in AM and continue 12 units at dinner. - Blood glucose monitoring on a three times a day schedule - GLUCOSE, BLOOD (POC) 2. Hyperlipidemia with target LDL less than 100 - ICD9: 272.4, ICD10: E78.5 - good control - Continue current medication. 3. Essential hypertension - ICD9: 401.9, ICD10: I10 - suboptimal control - Recommended regular aerobic exercise. - Recommend home blood pressure monitoring, to bring results in on next visit - Follow up in 1 month for BP recheck. - Goal of BP <140/90 4. CKD (chronic kidney disease) stage 4, GFR 15-29 ml/min (HCC) - ICD9: 585.4, ICD10: N18.4 - as above - follows with Dr. Yang -f/u in 1 month with me and PharmD- same day appt if possible. - have labs completed prior to appt. PORTER AnnaOV Observed: 04/25/2017 Status: COMPLETED Source: [place] 9:40 AM [facility] REPOSITORY Office Visit (FAMPWS) JACKIE ALVAREZ ([id number]) 1945 F Date Time Provider Department 04/25/17 9:40 AM ROCKY YAO) FAMPWS During your visit today, we recorded the following information about you: Pulse Respiration Blood pressure Weight 88/minute 16/minute 146/78 86.2 kg Rocky Yao CNP, CNP 04/25/2017 10:24 AM Signed HPI/CC: Jackie Alvarez is a 72 year old female who presents to the office today for review of health conditions. Ms. Alvarez has past history of diabetes, hyperlipidemia and hypertension. DM: Since our last visit she denies excessive thirst or increased frequency of urination, chest pain or dyspnea , numbness, tingling or pain in extremities, new or unusual visual symptoms and low sugar/hypoglycemic reactions. + Weight gain. Follows a diabetic diet some of the time- patient reports not eating 3 meals a day, she eats when she is hungry. She is compliant with medication(s) and is tolerating med(s) without any side effects. She reports checking her glucose on a three times a day schedule with sugars in the AM fasting 101-136 range. Bedtime fasting 134-378. Admits to drinking chocolate milk most days of the week. Admits to ANDquot;cheatingANDquot; om her blood glucose numbers. Daughter is now keeping track of her glucose numbers. Patient's last HgA1C was Hemoglobin A1C (%) Date Value 03/20/2017 11.4 12/09/2016 10.4 ) Hyperlipidemia. Current therapy includes atorvastatin (Lipitor) 40 mg. Denies side effects of muscle weakness or achiness. Her most recent lipid panels are reviewed. Cholesterol, Total (mg/dL) Date Value 12/09/2016 148 HDL Cholesterol (mg/dL) Date Value 12/09/2016 66 LDL Cholesterol (mg/dL) Date Value 12/09/2016 52 Triglyceride (mg/dL) Date Value 12/09/2016 149 Hypertension: states that she is feeling well and denies any symptoms referable to elevated blood pressure. Specifically denies headache, chest pain, palpitations, dyspnea and peripheral edema. Patient denies any side effects of her medication(s) and is compliant with their regimen. Last 3 Encounter BP Readings: Date: BP: 04/25/2017 146/78 03/20/2017 144/82 01/09/2017 152/90 She watches her diet for sodium, low fat and low cholesterol some of the time. She does check BP's away from this office with average BP's in the normal range range. Jackie denies regular aerobic exercise. REVIEW OF SYSTEMS: as above Reviewed relevant PMHx, PSHx, Social Hx, current medications and allergies. PHYSICAL EXAMINATION: BP 146/78 Pulse 88 Resp 16 Wt 86.2 kg (190 lb) BMI 29.76 kg/m2 General appearance: Well appearing, alert, in no acute distress, well-hydrated, well nourished. Patient reported not feeling well, like her BG was low. Skin: Skin color, texture, turgor normal, no suspicious rashes or lesions Lungs: Lungs clear to auscultation. No wheezing, rhonchi, rales Heart: RRR without murmur, gallop, or rubs. No ectopy. ASSESSMENT/PLAN: 1. Type 2 diabetes mellitus with stage 4 chronic kidney disease, without long-term current use of insulin (HCC) - ICD9: 250.40, 585.4, ICD10: E11.22, N18.4 (primary diagnosis) uncontrolled - Increase NPH Insulin 16 units in AM and continue 12 units at dinner. - Blood glucose monitoring on a three times a day schedule - GLUCOSE, BLOOD (POC) 2. Hyperlipidemia with target LDL less than 100 - ICD9: 272.4, ICD10: E78.5 - good control - Continue current medication. 3. Essential hypertension - ICD9: 401.9, ICD10: I10 - suboptimal control - Recommended regular aerobic exercise. - Recommend home blood pressure monitoring, to bring results in on next visit - Follow up in 1 month for BP recheck. - Goal of BP ANDlt;140/90 4. CKD (chronic kidney disease) stage 4, GFR 15-29 ml/min (HCC) - ICD9: 585.4, ICD10: N18.4 - as above - follows with Dr. Yang -f/u in 1 month with me and PharmD- same day appt if possible. - have labs completed prior to appt. Rocky Yao CNP Referring Provider: TIMOTHY DAS [[id number]] Allergies As of Date: 04/25/2017 (No Known Allergies) Date Reviewed: 04/25/2017 Reviewed by: Herman Fry LPN - Fully Assessed Reason for Visit: Recheck [92] Cmt: 3 month follow up Primary Visit Diagnosis:Type 2 diabetes mellitus with stage 4 chronic kidney disease, without long-term current use of insulin (HCC) [E11.22, N18.4] Other Visit Diagnoses:Hyperlipidemia with target LDL less than 100 [E78.5] Essential hypertension [I10] CKD (chronic kidney disease) stage 4, GFR 15-29 ml/min (FORMERLY [facility]) [N18.4] Anemia, unspecified type [D64.9] Order(s):insulin NPH human (NOVOLIN N NPH U-100 INSULIN) injectionInject 12-16 Units subcutaneously twice daily with meals. Inject 16 units subcutaneously at breakfast and 12 units dinnerDisp: Rfl: GLUCOSE, BLOOD (POC) [[id number]] Order #: [id number] GLUCOSE, BLOOD (POC) [[id number]] Order #: [id number]. #:[id number] HGB A1C [[id number]] Order #: [id number] FUTURE COMP METABOLIC PANEL [SQCMP] Order #: [id number] FUTURE CBC + DIFF [SQCBCDIF] Order #: [id number] FUTURE Prescriptions as of 04/25/2017 Sig: INSULIN NPH ISOPHANE U-100 HU* Inject 12-16 Units subcutaneo* BLOOD SUGAR DIAGNOSTIC STRIPS Use as directed to check bloo* ATORVASTATIN 40 MG TABLET TAKE ONE TABLET BY MOUTH ONCE* INSULIN U-100 REGULAR HUMAN 1* Inject 6 Units subcutaneously* ESCITALOPRAM 5 MG TABLET TAKE ONE TABLET BY MOUTH ONCE* INSULIN SYRINGE-NEEDLE U-100 * Use as directed once daily wi* LANCETS Use as directed to check bloo* CHOLECALCIFEROL (VITAMIN D3) * TAKE ONE CAPSULE BY MOUTH ONC* AMLODIPINE 10 MG TABLET Take 1 tablet by mouth once d* METOPROLOL TARTRATE 25 MG TAB* Take 1 tablet by mouth twice * BLOOD-GLUCOSE METER Use as directed to check bloo* LANCETS Test blood sugar(s) 2 times d* ASPIRIN 81 MG TABLET,DELAYED * Take 1 tablet by mouth once d* Problem List As Of Date 04/25/2017 Noted Resolved HTN (hypertension) [I10] INVALID FOR* More... 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] INVALID FOR* Anemia [D64.9] INVALID FOR* Elevated serum creatinine [R79.89] INVALID FOR* Uncontrolled type 2 diabetes mellitus without c*INVALID FOR* Essential hypertension [I10] INVALID FOR*04/25/2017 Situational depression [F43.21] INVALID FOR* Overweight (BMI 25.0-29.9) [E66.3] INVALID FOR* Vitamin D deficiency [E55.9] INVALID FOR* Type 2 diabetes mellitus with stage 4 chronic k*INVALID FOR* Prescriptions ordered this encounter Disp Refills Start End INSULIN NPH ISOPHANE U-100 HUMAN 100* 04/25/2017 Class: Med Update Route: SUBCUTANEOUS Sig: Inject 12-16 Units subcutaneously twice daily with meals. Inject 16 units subcutaneously at breakfast and 12 units dinner Medications Discontinued During This Encounter insulin NPH human (NOVOLIN N NPH U-1* 04/13/2017 04/25/2017 Class: Med Update Cmt: To replace Toujeo. Please dispense Relion Route: SUBCUTANEOUS Sig: Inject 12 Units subcutaneously twice daily with meals. Inject 14 units subcutaneously at breakfast and 12 units dinner Disc: Reason for discontinue is not on file. Encounter Status:Closed by ROCKY YAO CNP on 04/25/17 MANPREET Observed: 04/06/2017 Status: COMPLETED Source: [place] 12:00 AM [facility] REPOSITORY Telephone (PHUnbabelWO) JACKIE ALVAREZ ([id number]) 1945 F Date Time Provider Department 04/06/17 VERONICA (PHARMACIST)SANDEEP RUPESH During your visit today, we recorded the following information about you: JIMI CARL 04/06/2017 4:56 PM Signed Patient calling to report SMBGs. Reports taking regular insulin after meals. Previously had hypoglycemic episodes on higher doses of regular insulin. ? insulin regular human (HUMULIN R U-100) 100 unit/mL injection Inject 6 Units subcutaneously three times daily before meals. insulin NPH human (NOVOLIN N) injection Inject 12 units subcutaneously at breakfast and dinner ? 04/06 104 178 307 04/05 183 204 298 203 04/04 107 226 306 261 04/03 104 176 128 219 04/02 118 265 172 04/01 151 199 162 206 03/31 120 373 171 163 2 116 194 288 198 2 125 194 88 201 2 79 218 198 166 ? Hemoglobin A1C (%) Date Value 03/20/2017 11.4 12/09/2016 10.4 FBGs at goal, PPBGs not at goal. Discussed using the prandial insulin when she starts to fix her meal, so that it has time to ANDquot;kick inANDquot; Patient will try that. Will continue current regimen at this time. ? PharmD phone f/u on 04/13 [employer] 04/25 ? Sandeep Martin PharmD, BCPS JIMI CARL 04/13/2017 3:32 PM Signed Patient calling to report SMBGs. Reports taking regular insulin after meals. Previously had hypoglycemic episodes on higher doses of regular insulin. FBG Pre-lunch Pre-dinner QHS 04/13 111 205 04/12 130 305 205 212 04/11 150 309 154 191 04/10 195 241 100 04/09 137 286 164 383 04/08 277 186 277 154 04/07 137 202 50 162 INCREASE NPH to 14-0-12-0 CONTINUE regular 6 units about 20 minutes before meals PharmD phone f/u on 04/20 [employer] 04/25 Sandeep Martin PharmD, BCPS JIMI CARL 04/13/2017 3:32 PM Signed Addended by: VERONICA (PHARMACIST)SANDEEP on: 04/13/2017 03:32 PM Modules accepted: Orders JIMI CARL 04/20/2017 1:03 PM Signed Patient calling to report SMBGs. Reports taking regular insulin after meals. Previously had hypoglycemic episodes on higher doses of regular insulin. FBG Pre-lunch Pre-dinner HS 04/20 150 260-after brownie 54 over night 04/19 124 405-after ice cream 224 04/18 101 168 255 180 04/17 129 187 264 223 04/16 111 221 254 251 04/15 150 466 222 49 04/14 135 287 169 131 Hemoglobin A1C (%) Date Value 03/20/2017 11.4 12/09/2016 10.4 FBGs much improved, pre-meal sugars still not at goal. A couple instances of hypoglycemia. Will continue current regimen at this time. Could likely increase morning NPH dose to 16 next week. CONTINUE NPH 14-0-12-0 Insulin regular 6 units TID meals [employer] visit 04/25 PharmD phone f/u 04/27 Sandeep Martin, ParrishD, [facility] Allergies As of Date: 04/06/2017 (No Known Allergies) Date Reviewed: 03/20/2017 Reviewed by: Herman Fry LPN - Fully Assessed Reason for Visit: Blood Sugar Reading [1269] Order(s):insulin NPH human (NOVOLIN N NPH U-100 INSULIN) injectionInject 12 Units subcutaneously twice daily with meals. Inject 14 units subcutaneously at breakfast and 12 units dinnerDisp: Rfl: Prescriptions as of 04/06/2017 Sig: INSULIN NPH ISOPHANE U-100 HU* Inject 12 Units subcutaneousl* ATORVASTATIN 40 MG TABLET TAKE ONE TABLET BY MOUTH ONCE* INSULIN U-100 REGULAR HUMAN 1* Inject 6 Units subcutaneously* ESCITALOPRAM 5 MG TABLET TAKE ONE TABLET BY MOUTH ONCE* INSULIN SYRINGE-NEEDLE U-100 * Use as directed once daily wi* X BLOOD SUGAR DIAGNOSTIC STRIPS Use as directed to check bloo* LANCETS Use as directed to check bloo* CHOLECALCIFEROL (VITAMIN D3) * TAKE ONE CAPSULE BY MOUTH ONC* AMLODIPINE 10 MG TABLET Take 1 tablet by mouth once d* METOPROLOL TARTRATE 25 MG TAB* Take 1 tablet by mouth twice * BLOOD-GLUCOSE METER Use as directed to check bloo* LANCETS Test blood sugar(s) 2 times d* ASPIRIN 81 MG TABLET,DELAYED * Take 1 tablet by mouth once d* Problem List As Of Date 04/06/2017 Noted Resolved HTN (hypertension) [I10] INVALID FOR* More... 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 Please dispense Relion Route: SUBCUTANEOUS Sig: Inject 12 Units subcutaneously twice daily with meals. Inject 14 units subcutaneously at breakfast and 12 units dinner Medications Discontinued During This Encounter insulin NPH human (NOVOLIN N) inject* 1 Vi* 5 03/22/2017 04/13/2017 Class: Med Update Cmt: To replace Toujeo. Please dispense Relion Route: SUBCUTANEOUS Sig: Inject 12 Units subcutaneously twice daily with meals. Inject 12 units subcutaneously at breakfast and dinner Disc: Reason for discontinue is not on file. Follow-up and Disposition History Recorded Encounter Status:Closed by VERONICA (PHARMACIST)SANDEEP on 04/06/17 ALBUMIN/CREAT RATIO Collected: 03/28/2017 Status: F Source: [place] 10:01 AM [facility] REPOSITORY TYPE CODE TESTS RESULT OUT OF REFERENCE UNITS RANGE LAB UCRR 20-300 mg/dL Creatinine,Ur 232.8 ine,Ran LAB UALBR 0.0-23.0 mg/L High Albumin Urine 230.9 Random LAB UALBCR 0-30 mg/g High Albumin/Creat 99 Ratio Result Comment: 30 to 300 mg/g indicates an increased risk for diabetic nephropathy. Greater than 300 mg/g is consistent with clinical nephropathy. (Am J Kidney Disease 1994, 25:107) Performed By: #### UACR #### [facility] [address], [place] [address] CBC AND DIFFERENTIAL Collected: 03/28/2017 Status: F Source: [place] 9:50 AM [facility] REPOSITORY TYPE CODE TESTS RESULT OUT OF REFERENCE UNITS RANGE LAB WBC 3.70-11.00 k/uL WBC 6.60 LAB RBC 3.90-5.20 m/uL RBC 4.63 LAB HGB 11.5-15.5 g/dL Hemoglobin 13.2 LAB HCT 36.0-46.0 % Hematocrit 42.0 LAB MCV 80.0-100.0 fL MCV 90.7 LAB MCH 26.0-34.0 pG MCH 28.5 LAB MCHC 30.5-36.0 g/dL MCHC 31.4 LAB RDWCV 11.5-15.0 % RDW-CV 14.1 LAB PLTCT 150-400 k/uL Platelet Count 193 LAB MPV 9.0-12.7 fL MPV 10.6 LAB ANEUT % Neut% 65.7 LAB AANEUT 1.45-7.50 k/uL Abs Neut 4.31 LAB ALYMP % Lymph% 22.7 LAB AALYMP 1.00-4.00 k/uL Abs Lymph 1.50 LAB AMONO % Henry% 7.7 LAB AAMONO <0.87 k/uL Abs Henry 0.51 LAB AEOS % Eosin% 3.3 LAB AAEOS <0.46 k/uL Abs Eosin 0.22 LAB ABASO % Baso% 0.6 LAB AABASO <0.11 k/uL Abs Baso 0.04 LAB AUNRBC 0 /100 WBC NRBCs 0.0 LAB ABNRBC <0.01 k/uL Absolute nRBC <0.01 LAB DTYP DTYPE Auto Diff Performed By: #### CBCDIF, CMP #### [facility] [address] [place] [id number] COMP METABOLIC PANEL Collected: 03/28/2017 Status: F Source: [place] 9:50 AM [facility] REPOSITORY TYPE CODE TESTS RESULT OUT OF REFERENCE UNITS RANGE LAB TP 6.3-8.0 g/dL Protein, Total 7.1 LAB ALB 3.9-4.9 g/dL Low Albumin 3.6 LAB CA 8.5-10.2 mg/dL Calcium, Total 9.9 LAB TBIL 0.2-1.3 mg/dL Bilirubin, Total 0.2 LAB ALKP 32-117 U/L Alkaline Phosphatase 61 LAB AST 13-35 U/L AST 22 LAB GLU 74-99 mg/dL Glucose High 167 Result Comment: The [place] Diabetes Association (ADA) provides guidance for cutoff values for fasting glucose and random glucose. The ADA defines fasting as no caloric intake for at least 8 hours. Fas ting plasma glucose results between 100 to 125 mg/dL indicate increased risk for diabetes (prediabetes). Fasting plasma glucose results greater than or equal to 126 mg/dL meet the criteria for diagnosis of diabetes. In the absence of unequivocal hyperglycemia, results should be confirmed by repeat testing. In a patient with classic symptoms of hyperglycemia or hyperglycemic crisis, random plasma glucose results greater than or equal to 200 mg/dL meet the criteria for diagnosis of diabetes. Reference: Standards of Medical Care in Diabetes 2016, [place] Diabetes Association. Diabetes Care. 2016.39(Suppl 1). LAB BUN 7-21 mg/dL BUN High 40 LAB CRET 0.58-0.96 mg/dL Creatinine High 1.89 LAB NA 136-144 mmol/L Sodium 138 LAB K 3.7-5.1 mmol/L Potassium 5.0 LAB CL 97-105 mmol/L Chloride 99 LAB CO2 22-30 mmol/L CO2 24 LAB AGAP 9-18 mmol/L Anion Gap 15 LAB ALT 7-38 U/L ALT 22 LAB GFRAA eGFR- Amer. 31 LAB GFRNAA . eGFR-All Other Races 26 Result Comment: eGFR (Estimated GFR) Units of measure: mL/min/1.73 meters squared eGFR is derived from the reexpressed MDRD Study equation using the following parameters: serum creatinine, age, gender and race. The creatinine assay has been calibrated to be traceable to IDMS. An eGFR <60 mL/min/1.73m2 for >3 months is consistent with chronic kidney disease. Refer to KDOQI guidelines for clinical interpretation. In patients with unstable renal function, e.g. those with acute kidney injury, the eGFR may not accurately reflect actual GFR. Performed By: #### CBCDIF, CMP #### [facility] [address] [place] [id number] PROGRESS Observed: 03/22/2017 Status: COMPLETED Source: [place] 8:49 AM [facility] REPOSITORY HNO ID: [id number] Author: Rocky Sánchez (Porter) PORTER Yao Service: (none) Author Type: Nurse Practitioner Type: Progress Notes Filed: 03/22/2017 9:04 AM Note Text: HPI/CC: Jackie Alvarez is a 72 year old female who presents to the office today for hospital follow-up. She was to [facility] ER on 03/11/2017l following c/o abdominal pain with distention and diarrhea. Testing completed at the facility: none Labwork completed at the facility: CBC, CMP. Worsening RF, elevated glucose. Elevated calcium. Other specialist and follow up care: PCP and nephrology Continues to experience nausea and lightheadedness. Denies fever, chills, vomiting or diarrhea. REVIEW OF SYSTEMS as above HISTORIES: PAST MEDICAL HISTORY Diagnosis Date - Anemia - Chronic airway obstruction, not elsewhere classified - CKD (chronic kidney disease) stage 4, GFR 15-29 ml/min ([facility]) [facility] - Colovesical fistula 05/13/2011 - Debility, unspecified - Difficulty in walking(719.7) - Lumbago - Menopause age 48 - Muscle weakness (generalized) - Obesity, unspecified - Other and unspecified hyperlipidemia - Type II or unspecified type diabetes mellitus without mention of complication, not stated as uncontrolled - Unspecified essential hypertension - Urinary tract infection, site not specified PAST SURGICAL HISTORY Procedure Laterality Date - APPENDECTOMY - BLADDER SURGERY HX 04/2011 - HEART CATHETERIZATION 06/2015 FAMILY HISTORY Problem Relation Age of Onset - Heart Mother - Cancer Father liver - Diabetes Sister - Diabetes Sister - Diabetes Sister - Stroke Sister - Stroke Sister - Stroke Sister - Alzheimer's Disease Sister Social History Marital status: Spouse name: Years of education: Number of children: Social History Main Topics Smoking status: Former Smoker Packs/day: 1.00 Years: 47.00 Types: Cigarettes Quit date: 04/18/2011 Smokeless status: Never Used Alcohol use: No Drug use: No Current Outpatient Prescriptions on File Prior to Visit: insulin NPH human (NOVOLIN N) injection Inject 12 units subcutaneously in the morning insulin regular human (HUMULIN R U-100) 100 unit/mL injection Inject 6 units subcutaneously 30 minutes prior to evening meal escitalopram oxalate (LEXAPRO) 5 mg tablet TAKE ONE TABLET BY MOUTH ONCE DAILY Insulin Syringe-Needle U-100 0.3 mL 31 gauge x 5/16 syrg Use as directed once daily with insulin blood sugar diagnostic (ACCU-CHEK AUTUMN PLUS TEST STRP) test strip Use as directed to check blood sugar 4 to 5 times daily Dx: Type 2 DM - Controlled E11.22 Insulin: Yes Lancets (ACCU-CHEK SOFTCLIX LANCETS) lancets Use as directed to check blood sugar 1 to 2 times daily Dx: Type 2 DM - Controlled E11.22 Insulin: Yes Cholecalciferol, Vitamin D3, 5,000 unit cap TAKE ONE CAPSULE BY MOUTH ONCE DAILY atorvastatin (LIPITOR) 40 mg tablet Take 1 tablet by mouth once daily. amLODIPine (NORVASC) 10 mg tablet Take 1 tablet by mouth once daily. metoprolol tartrate, short acting, (LOPRESSOR) 25 mg tablet Take 1 tablet by mouth twice daily. Blood-Glucose Meter (ACCU-CHEK AUTUMN PLUS METER) [facility] Use as directed to check blood sugar 1 to 2 times daily Dx: Type 2 DM - Controlled E11.22 ?Insulin: Yes Lancets lancets Test blood sugar(s) 2 times daily. Dx: Type 2 DM - Controlled E11.22 Insulin: Yes aspirin, enteric coated (ADULT LOW DOSE ASPIRIN) 81 mg EC tablet Take 1 tablet by mouth once daily. No current facility-administered medications on file prior to visit. ALLERGIES No Known Allergies PHYSICAL EXAMINATION: BP 144/82 Pulse 96 Resp 16 Wt 83.9 kg (185 lb) BMI 28.98 kg/m2 General appearance: Well appearing, alert, in no acute distress, well-hydrated, well nourished., Overweight Skin: Skin color, texture, turgor normal, no suspicious rashes or lesions Lungs: Lungs clear to auscultation. No wheezing, rhonchi, rales Heart: RRR without murmur, gallop, or rubs. No ectopy Abdomen: Normal abdominal exam, Abdomen soft, non-tender. Bowel sounds normal. No masses, organomegaly ASSESSMENT/PLAN: 1. Generalized abdominal pain - ICD9: 789.07, ICD10: R10.84 (primary diagnosis) - Labs of CBC with Diff and CMP 2. Type 2 diabetes mellitus with stage 4 chronic kidney disease, without long-term current use of insulin (HCC) - ICD9: 250.40, 585.4, ICD10: E11.22, N18.4 uncontrolled - Changes based on HgbA1c 3. CKD (chronic kidney disease) stage 4, GFR 15-29 ml/min ([facility]) - ICD9: 585.4, ICD10: N18.4 - follow with nephrology 4. Essential hypertension - ICD9: 401.9, ICD10: I10 - poor control - Recommended regular aerobic exercise. - Recommend home blood pressure monitoring, to bring results in on next visit - Reviewed risks of HTN and principles of treatment - Goal of BP <140/90 Rocky Yao CNP HEMOGLOBIN A1C Collected: 03/20/2017 Status: F Source: [place] 4:35 PM [facility] REPOSITORY TYPE CODE TESTS RESULT OUT OF REFERENCE UNITS RANGE LAB HGBA1C 4.3-5.6 % High Hemoglobin A1c 11.4 LAB HBA0 mg/dL Est. Average Glucose 280 Result Comment: eAG: (Estimated average glucose) is a calculated value from HgbA1c and is public service representative of the average blood glucose level in the last 2-3 month period. Performed By: #### HBA1C #### [facility] [address] [place], [place] [address] CNOV Observed: 03/20/2017 Status: COMPLETED Source: [place] 3:40 PM [facility] REPOSITORY Office Visit (FAMPWS) JACKIE ALVAREZ ([id number]) 1945 F Date Time Provider Department 03/20/17 3:40 PM ROCKY YAO) FAMPWS During your visit today, we recorded the following information about you: Pulse Respiration Blood pressure Weight 96/minute 16/minute 144/82 83.9 kg Rocky Yao CNP, CNP 03/22/2017 9:04 AM Signed HPI/CC: Jackie Alvarez is a 72 year old female who presents to the office today for hospital follow-up. She was to [facility] ER on 03/11/2017l following c/o abdominal pain with distention and diarrhea. Testing completed at the facility: none Labwork completed at the facility: CBC, CMP. Worsening RF, elevated glucose. Elevated calcium. Other specialist and follow up care: PCP and nephrology Continues to experience nausea and lightheadedness. Denies fever, chills, vomiting or diarrhea. REVIEW OF SYSTEMS as above HISTORIES: PAST MEDICAL HISTORY Diagnosis Date - Anemia - Chronic airway obstruction, not elsewhere classified - CKD (chronic kidney disease) stage 4, GFR 15-29 ml/min ([facility]) [facility] - Colovesical fistula 05/13/2011 - Debility, unspecified - Difficulty in walking(719.7) - Lumbago - Menopause age 48 - Muscle weakness (generalized) - Obesity, unspecified - Other and unspecified hyperlipidemia - Type II or unspecified type diabetes mellitus without mention of complication, not stated as uncontrolled - Unspecified essential hypertension - Urinary tract infection, site not specified PAST SURGICAL HISTORY Procedure Laterality Date - APPENDECTOMY - BLADDER SURGERY HX 04/2011 - HEART CATHETERIZATION 06/2015 FAMILY HISTORY Problem Relation Age of Onset - Heart Mother - Cancer Father liver - Diabetes Sister - Diabetes Sister - Diabetes Sister - Stroke Sister - Stroke Sister - Stroke Sister - Alzheimer's Disease Sister Social History Marital status: Spouse name: Years of education: Number of children: Social History Main Topics Smoking status: Former Smoker Packs/day: 1.00 Years: 47.00 Types: Cigarettes Quit date: 04/18/2011 Smokeless status: Never Used Alcohol use: No Drug use: No Current Outpatient Prescriptions on File Prior to Visit: insulin NPH human (NOVOLIN N) injection Inject 12 units subcutaneously in the morning insulin regular human (HUMULIN R U-100) 100 unit/mL injection Inject 6 units subcutaneously 30 minutes prior to evening meal escitalopram oxalate (LEXAPRO) 5 mg tablet TAKE ONE TABLET BY MOUTH ONCE DAILY Insulin Syringe-Needle U-100 0.3 mL 31 gauge x 5/16 syrg Use as directed once daily with insulin blood sugar diagnostic (ACCU-CHEK AUTUMN PLUS TEST STRP) test strip Use as directed to check blood sugar 4 to 5 times daily Dx: Type 2 DM - Controlled E11.22 Insulin: Yes Lancets (ACCU-CHEK SOFTCLIX LANCETS) lancets Use as directed to check blood sugar 1 to 2 times daily Dx: Type 2 DM - Controlled E11.22 Insulin: Yes Cholecalciferol, Vitamin D3, 5,000 unit cap TAKE ONE CAPSULE BY MOUTH ONCE DAILY atorvastatin (LIPITOR) 40 mg tablet Take 1 tablet by mouth once daily. amLODIPine (NORVASC) 10 mg tablet Take 1 tablet by mouth once daily. metoprolol tartrate, short acting, (LOPRESSOR) 25 mg tablet Take 1 tablet by mouth twice daily. Blood-Glucose Meter (ACCU-CHEK AUTUMN PLUS METER) [facility] Use as directed to check blood sugar 1 to 2 times daily Dx: Type 2 DM - Controlled E11.22 ?Insulin: Yes Lancets lancets Test blood sugar(s) 2 times daily. Dx: Type 2 DM - Controlled E11.22 Insulin: Yes aspirin, enteric coated (ADULT LOW DOSE ASPIRIN) 81 mg EC tablet Take 1 tablet by mouth once daily. No current facility-administered medications on file prior to visit. ALLERGIES No Known Allergies PHYSICAL EXAMINATION: BP 144/82 Pulse 96 Resp 16 Wt 83.9 kg (185 lb) BMI 28.98 kg/m2 General appearance: Well appearing, alert, in no acute distress, well-hydrated, well nourished., Overweight Skin: Skin color, texture, turgor normal, no suspicious rashes or lesions Lungs: Lungs clear to auscultation. No wheezing, rhonchi, rales Heart: RRR without murmur, gallop, or rubs. No ectopy Abdomen: Normal abdominal exam, Abdomen soft, non-tender. Bowel sounds normal. No masses, organomegaly ASSESSMENT/PLAN: 1. Generalized abdominal pain - ICD9: 789.07, ICD10: R10.84 (primary diagnosis) - Labs of CBC with Diff and CMP 2. Type 2 diabetes mellitus with stage 4 chronic kidney disease, without long-term current use of insulin ([facility]) - ICD9: 250.40, 585.4, ICD10: E11.22, N18.4 uncontrolled - Changes based on HgbA1c 3. CKD (chronic kidney disease) stage 4, GFR 15-29 ml/min ([facility]) - ICD9: 585.4, ICD10: N18.4 - follow with nephrology 4. Essential hypertension - ICD9: 401.9, ICD10: I10 - poor control - Recommended regular aerobic exercise. - Recommend home blood pressure monitoring, to bring results in on next visit - Reviewed risks of HTN and principles of treatment - Goal of BP ANDlt;140/90 Rocky Yao CNP Referring Provider: SELF [[id number]] Allergies As of Date: 03/20/2017 (No Known Allergies) Date Reviewed: 03/20/2017 Reviewed by: Herman Fry LPN - Fully Assessed Reason for Visit: ER F/U [41] Cmt: [facility] ER 03/11 dx: dehydration, nausea Primary Visit Diagnosis:Generalized abdominal pain [R10.84] Other Visit Diagnoses:Type 2 diabetes mellitus with stage 4 chronic kidney disease, without long-term current use of insulin ([facility]) [E11.22, N18.4] CKD (chronic kidney disease) stage 4, GFR 15-29 ml/min ([facility]) [N18.4] Essential hypertension [I10] Order(s):CBC + DIFF [SQCBCDIF] Order #: [id number] FUTURE COMP METABOLIC PANEL [SQCMP] Order #: [id number] FUTURE insulin NPH human (NOVOLIN N) injectionInject 12 Units subcutaneously twice daily with meals. Inject 12 units subcutaneously at breakfast and dinnerDisp: 1 VialRfl: 5 insulin regular human (HUMULIN R U-100) 100 unit/mL injectionInject 12 Units subcutaneously three times daily before meals. Inject 6 units subcutaneously 30 minutes prior to evening mealDisp: 1 VialRfl: 5 Prescriptions as of 03/20/2017 Sig: INSULIN NPH HUMAN RECOMB 100 * Inject 12 Units subcutaneousl* INSULIN REGULAR HUMAN 100 UNI* Inject 12 Units subcutaneousl* ESCITALOPRAM 5 MG TABLET TAKE ONE TABLET BY MOUTH ONCE* INSULIN SYRINGE-NEEDLE U-100 * Use as directed once daily wi* BLOOD SUGAR DIAGNOSTIC STRIPS Use as directed to check bloo* LANCETS Use as directed to check bloo* CHOLECALCIFEROL (VITAMIN D3) * TAKE ONE CAPSULE BY MOUTH ONC* ATORVASTATIN 40 MG TABLET Take 1 tablet by mouth once d* AMLODIPINE 10 MG TABLET Take 1 tablet by mouth once d* METOPROLOL TARTRATE 25 MG TAB* Take 1 tablet by mouth twice * BLOOD-GLUCOSE METER Use as directed to check bloo* LANCETS Test blood sugar(s) 2 times d* ASPIRIN 81 MG TABLET,DELAYED * Take 1 tablet by mouth once d* Problem List As Of Date 03/20/2017 Noted Resolved HTN (hypertension) [I10] INVALID FOR* More... 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 Please dispense Relion Route: SUBCUTANEOUS Sig: Inject 12 Units subcutaneously twice daily with meals. Inject 12 units subcutaneously at breakfast and dinner INSULIN REGULAR HUMAN 100 UNIT/ML IN* 1 Vi* 5 03/22/2017 Class: Med Update Cmt: To replace Humalog. Please dispense Relion Route: SUBCUTANEOUS Sig: Inject 12 Units subcutaneously three times daily before meals. Inject 6 units subcutaneously 30 minutes prior to evening meal Medications Discontinued During This Encounter insulin NPH human (NOVOLIN N) inject* 1 Vi* 5 02/28/2017 03/22/2017 Cmt: To replace Toujeo. Please dispense Relion Sig: Inject 12 units subcutaneously in the morning Disc: Reason for discontinue is not on file. insulin regular human (HUMULIN R U-1* 1 Vi* 5 02/28/2017 03/22/2017 Cmt: To replace Humalog. Please dispense Relion Sig: Inject 6 units subcutaneously 30 minutes prior to evening meal Disc: Reason for discontinue is not on file. Encounter Status:Closed by ROCKY YAO CNP on 03/22/17 EMERGENCY DEPARTMENT Observed: 03/11/2017 Status: F Source: [place] SUMMARY 4:12 PM [facility] REPOSITORY [facility] Medical Records Department [address] [place] [address] Emergency Department Summary 03/11/17 1608 MR#: [id number] Acct: [id number] Name: JACKIE ALVAREZ Rep #: [id number] : 1945 72 From: Toi Mckeon MD PCP: Timothy Das DO Status: REG ER - ER Visit Summary Date of Service: 03/11/17 Chief Complaint: Abdominal pain, distention and diarrhea History of Present Illness: The patient is a 72 F resents with abdominal pain with distention and diarrhea that started 11 AM. She states her blood sugar was greater than 300. She reports compliance with her diet and medication. She denies fever, chills night sweats. She denies headache, ocular, visual or auditory symptoms. She denies any chest discomfort. She denies shortness of breath. She denies dysuria, frequency, urgency or hematuria. She denies any blood or mucus in her diarrhea. She has had no ill contacts. She has no risk factors for Pseudomonas enterocolitis. Past medical history of diabetes, hypertension hypercholesterolemia. Past surgical history appendectomy. she does see a polishing machine operator. Physical Examination: Pleasant elderly woman who appears pale. HEENT exam is unremarkable. Heart is rapid and regular without murmur, gallop or rub. Lungs are clear to auscultation. Abdomen slightly distended nontender with increased bowel sounds. Lower extremity exam is unremarkable. She is alert and oriented with a nonfocal neurologic exam. Test Results: CBC normal. BMP is marked for glucose of 277 BUN of 52 and a creatinine of 2.04. This reveals elevated BUN to creatinine ratio consistent with prerenal azotemia. Patient's had no further nausea or diarrhea in the department. Emergency Department Course and Treatment: She is elderly with history of diabetes and other comorbid medical problems blood work was obtained. Treatment Plan: Symptomatic treatment and appropriate home- going instructions Disposition: Discharge to home to follow-up with Dr. Das this coming week and her polishing machine operator. Impression: 1. Abdominal pain with diarrhea, acute 2. Hyperglycemia in diabetic patient 3. End-stage renal disease with acute renal insufficiency/prerenal azotemia This note was generated with Adzer[employer] dictation software. It may contain incorrect words, spelling, and punctuation that were not noted in review of the chart prior to signing ED Disposition - Plan for ED Patient: Disposition: Home or Assisted Living Chief Complaint: Abd Pain Instructions: ED Insufficiency Renal, ED Dehydration, ED Diarrhea Viral Referrals: Timothy Das DO [Primary Care Provider] - 3-5 Days Additional Instructions: You will need repeat blood work and specifically a basic metabolic panel when you are seen by Dr. Das. You may need referral to your polishing machine operator, kidney doctor. What to do if you have Problems For any increased pain, shortness of breath, bleeding, nausea or vomiting, chest pain, or any unexpected problems, contact your Primary Care Provider. Call [facility] ([phone]) or report to the closest Emergency Room. Call 911 if necessary. 03/11/17 1612 <Electronically signed by Toi Mckeon MD> Date Toi Mckeon MD Cosigner Signature (If Indicated): Date CC: Timothy Das DO CBC W/DIFF, AUTOMATED Collected: 03/11/2017 Status: F Source: [place] 1:41 PM [facility] REPOSITORY TYPE CODE TESTS RESULT OUT OF RANGE REFERENCE UNITS LAB L100.1000 4.4-11.0 K/mm3 Normal WBC 6.2 LAB L100.1200 4.2-5.4 M/mm3 Normal RBC 4.49 LAB L100.1300 12.0-15.0 g/dl Normal HGB 12.8 LAB L100.1400 37-47 % Normal HCT 39.4 LAB L100.1500 81-99 fL Normal MCV 87.8 LAB L100.1600 27.0-32.0 pg Normal MCH 28.5 LAB L100.1700 32-36 g/gl Normal MCHC 32.5 LAB L100.1810 11.6-14.6 % Normal RDW CV 14.6 LAB L100.1820 35.1-43.9 fl High RDW SD 46.7 LAB L100.1900 150-450 K/mm3 Normal PLT 215 LAB L100.2000 6.2-12.0 fl Normal MPV 10.1 LAB L100.2100 47-70 % Normal NEUT% 69.3 LAB L100.2200 19-41 % Normal LY% 22.8 LAB L100.2300 0-10 % Normal MONO% 4.4 LAB L100.2400 0-5 % Normal EO% 3.1 LAB L100.2500 0-1 % Normal BASO% 0.2 LAB L100.2550 0.0-0.9 % Normal IM GRAN % 0.200 Result Comment: IG% - Immature Granulocytes (promyelocytes, myelocytes and metamyelocytes) > 1% indicates that a LEFT SHIFT is Present. LAB L100.2620 2.0-7.7 X10 3/uL Normal Absolute Neut 4.3 LAB L100.2720 0.83-4.51 X10 3/ul Normal Absolute Lymph 1.40 Performed By: #### L100.0100 #### [facility] [address] [place], [place], [address] BASIC METABOLIC Collected: 03/11/2017 Status: F Source: [place] PROFILE (BMP) 1:41 PM [facility] REPOSITORY TYPE CODE TESTS RESULT OUT OF RANGE REFERENCE UNITS LAB L501.0100 70-110 mg/dL High GLU 277 Result Comment: Glucose result greater than or equal to 200 mg/dL suggests DIABETES MELLITUS per A.D.A. criteria. LAB L501.1000 7-18 mg/dL High BUN 52 LAB L501.1100 0.55-1.02 mg/dL High CREAT,SERUM 2.04 Result Comment: The validity of the calculated GFR AND GFRAA in patients over 70 years has not been determined. Clinical correlation is essential. LAB L501.1110 >60 mL/min Low EST GFR 25 Result Comment: Non- GFR Calc LAB L501.1115 >60 mL/min Low EST GFR - AA 31 Result Comment: GFR Calc LAB L501.1255 ml/min Normal Estimated CRCL 23.53 LAB L501.1300 10-20 RATIO High BUN/CRE 25.5 LAB L501.2200 8.5-10 mg/dL High .1 CA 10.7 LAB L501.5300 136-14 mmol/L Normal 5 NA 138 LAB L501.5600 3.5-5. mmol/L Normal 1 K 5.1 LAB L501.5900 98-107 mmol/L Normal CL 102 LAB L501.6100 21.0-3 mmol/L Normal 2.0 CO2 27.0 LAB L501.6200 5-15 Normal GAP 9 Performed By: #### L500.2500 #### [facility] [address] [place], [address] CNPN Observed: 03/09/2017 Status: COMPLETED Source: [place] 12:00 AM [facility] REPOSITORY Telephone (PHMEWO) JACKIE ALVAREZ ([id number]) 1945 F Date Time Provider Department 03/09/17 VERONICA HiltonPHARMACIST)SANDEEP During your visit today, we recorded the following information about you: JIMI CARL 03/09/2017 2:36 PM Signed PharmD called for updated SMBGs. LVM with instructions to return PharmD call. Sandeep Martin PharmD, BCPS JIMI CARL 03/13/2017 3:02 PM Signed Patient reports was in [facility] ED on 03/11. Her papework states her diagnoses ANDquot;Renal insufficiency, viral diarrhea, and dehydration.ANDquot; Reports the ED gave her ANDquot;somethingANDquot; in IV for nausea She still feels nauseous and dizzy today Is taking Insulin NPH 12 QAM Insulin regular 6 units with dinner Date Fasting AM 2 hr PP Before Lunch 2 hr PP Before Dinner 2 hr PP Bedtime 03/13 217 ? 03/10 160 321 ? Instructed her to call Dr. Das to make ED follow-up appointment. PharmD f/u over phone Sandeep Martin PharmD, BCPS JIMI CARL 03/14/2017 4:51 PM Signed Addended by: VERONICA (PHARMACIST)SANDEEP on: 03/14/2017 04:51 PM Modules accepted: Orders Allergies As of Date: 03/09/2017 (No Known Allergies) Date Reviewed: 01/09/2017 Reviewed by: Dilan Gonzalez RN - Fully Assessed Reason for Visit: Patient Update [1234] Reason For Visit History Recorded Primary Visit Diagnosis:Type 2 diabetes mellitus with stage 4 chronic kidney disease, without long-term current use of insulin (HCC) [E11.22, N18.4] Order(s):HGB A1C [YBSTK3W] Order #: [id number] FUTURE Prescriptions as of 03/09/2017 Sig: INSULIN NPH HUMAN RECOMB 100 * Inject 12 units subcutaneousl* INSULIN REGULAR HUMAN 100 UNI* Inject 6 units subcutaneously* ESCITALOPRAM 5 MG TABLET TAKE ONE TABLET BY MOUTH ONCE* INSULIN SYRINGE-NEEDLE U-100 * Use as directed once daily wi* BLOOD SUGAR DIAGNOSTIC STRIPS Use as directed to check bloo* LANCETS Use as directed to check bloo* CHOLECALCIFEROL (VITAMIN D3) * TAKE ONE CAPSULE BY MOUTH ONC* ATORVASTATIN 40 MG TABLET Take 1 tablet by mouth once d* AMLODIPINE 10 MG TABLET Take 1 tablet by mouth once d* METOPROLOL TARTRATE 25 MG TAB* Take 1 tablet by mouth twice * BLOOD-GLUCOSE METER Use as directed to check bloo* LANCETS Test blood sugar(s) 2 times d* ASPIRIN 81 MG TABLET,DELAYED * Take 1 tablet by mouth once d* Problem List As Of Date 03/09/2017 Noted Resolved HTN (hypertension) [I10] INVALID FOR* More... 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] INVALID FOR* Anemia [D64.9] INVALID FOR* Elevated serum creatinine [R79.89] INVALID FOR* Uncontrolled type 2 diabetes mellitus without c*INVALID FOR* Essential hypertension [I10] INVALID FOR* Situational depression [F43.21] INVALID FOR* Overweight (BMI 25.0-29.9) [E66.3] INVALID FOR* Vitamin D deficiency [E55.9] INVALID FOR* Type 2 diabetes mellitus with stage 4 chronic k*INVALID FOR* Follow-up and Disposition History Recorded Encounter Status:Closed by VERONICA (PHARMACIST)SANDEEP on 03/13/17 [place] Observed: 02/21/2017 Status: COMPLETED Source: [place] 12:00 AM [facility] REPOSITORY Telephone (PHMEWO) JACKIE ALVAREZ ([id number]) 1945 F Date Time Provider Department 02/21/17 VERONICA (PHARMACIST), SANDEEP LI During your visit today, we recorded the following information about you: JIMI CARL 02/21/2017 2:48 PM Signed PharmD contacted patient. She and daughter moved into mobile home. Patient's glasses fell and lenses fell out so she cannot see too well. Patient reports will have [employer] insurance as of 02/20/17, so will be able to transition to once daily insulin at that time. She is waiting on a new card from [employer]. ? Currently taking: Insulin NPH 12-0-0-0 Insulin regular 6 units with dinner (sometimes forgets) No SMBG's reported given no glasses. ? Phone f/u Monday. ? Sandeep Martin PharmD, BCPS JIMI CARL 02/28/2017 10:36 AM Addendum Currently taking: Insulin NPH 12-0-0-0 Insulin regular 6 units with dinner (sometimes forgets) New [employer] insurance covers Toujeo and Humalog. [employer] letter says ANDquot;no DM coverage until ot; ? SMBG?s: Date Fasting AM 2 hr PP Before Lunch 2 hr PP Before Dinner 2 hr PP Bedtime 02/28 246 1/8 191 1/7 173 334 1/6 215 1/5 338 1/4 203 1/3 181 1/2 188 178 / 170 216 ? Hypoglycemia: no START insulin glargine 300 units/mL 12 units QAM ? STOP NPH insulin START insulin lispro 6 units with dinner ? STOP regular insulin Will check on co-pay amount and determine plan for continuation of therapy. Patient not ready to schedule OV at this time. Sandeep Martin PharmD, BCPS JIMI CARL 02/28/2017 10:36 AM Signed Addended by: VERONICA (PHARMACIST)SANDEEP on: 02/28/2017 10:36 AM Modules accepted: Orders JIMI CARL 02/28/2017 12:29 PM Signed [facility] and co-pays are ANDgt; $100 for each insulin. Was told deductible is probably $400. Called patient and she prefers to stay on the NPH and regular for now. Will see if she qualifies for Medicare Extra Help next time we talk. Will refill NPH and regular at this time. Sandeep Martin, PharmD, [facility] SANDEEP MARTIN, PHARMACIST 02/28/2017 12:29 PM Signed Addended by: VERONICA (PHARMACIST)SANDEEP on: 02/28/2017 12:29 PM Modules accepted: Orders Allergies As of Date: 02/21/2017 (No Known Allergies) Date Reviewed: 01/09/2017 Reviewed by: Dilan Gonzalez RN - Fully Assessed Reason for Visit: Patient Update [1234] Order(s):insulin NPH human (NOVOLIN N) injectionInject 12 units subcutaneously in the morningDisp: 1 VialRfl: 5 insulin regular human (HUMULIN R U-100) 100 unit/mL injectionInject 6 units subcutaneously 30 minutes prior to evening mealDisp: 1 VialRfl: 5 Prescriptions as of 02/21/2017 Sig: INSULIN NPH HUMAN RECOMB 100 * Inject 12 units subcutaneousl* INSULIN REGULAR HUMAN 100 UNI* Inject 6 units subcutaneously* ESCITALOPRAM 5 MG TABLET TAKE ONE TABLET BY MOUTH ONCE* INSULIN SYRINGE-NEEDLE U-100 * Use as directed once daily wi* BLOOD SUGAR DIAGNOSTIC STRIPS Use as directed to check bloo* LANCETS Use as directed to check bloo* CHOLECALCIFEROL (VITAMIN D3) * TAKE ONE CAPSULE BY MOUTH ONC* ATORVASTATIN 40 MG TABLET Take 1 tablet by mouth once d* AMLODIPINE 10 MG TABLET Take 1 tablet by mouth once d* METOPROLOL TARTRATE 25 MG TAB* Take 1 tablet by mouth twice * BLOOD-GLUCOSE METER Use as directed to check bloo* LANCETS Test blood sugar(s) 2 times d* ASPIRIN 81 MG TABLET,DELAYED * Take 1 tablet by mouth once d* Problem List As Of Date 02/21/2017 Noted Resolved HTN (hypertension) [I10] INVALID FOR* More... 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] INVALID FOR* Anemia [D64.9] INVALID FOR* Elevated serum creatinine [R79.89] INVALID FOR* Uncontrolled type 2 diabetes mellitus without c*INVALID FOR* Essential hypertension [I10] INVALID FOR* Situational depression [F43.21] INVALID FOR* Overweight (BMI 25.0-29.9) [E66.3] INVALID FOR* Vitamin D deficiency [E55.9] INVALID FOR* Type 2 diabetes mellitus with stage 4 chronic k*INVALID FOR* Prescriptions ordered this encounter Disp Refills Start End INSULIN GLARGINE 300 UNIT/ML (1.5 ML* 3 Pen 1 02/28/2017 02/28/2017 Cmt: This replaces the NPH insulin Route: SUBCUTANEOUS Sig: Inject 12 Units subcutaneously every morning. INSULIN LISPRO 100 UNIT/ML SUBCUTANE* 5 Pen 1 02/28/2017 02/28/2017 Cmt: This replaces the R insulin Route: SUBCUTANEOUS Sig: Inject 6 Units subcutaneously daily with dinner. INSULIN NPH HUMAN RECOMB 100 UNIT/ML* 1 Vi* 5 02/28/2017 Cmt: To replace Toujeo. Please dispense Relion Sig: Inject 12 units subcutaneously in the morning INSULIN REGULAR HUMAN 100 UNIT/ML IN* 1 Vi* 5 02/28/2017 Cmt: To replace Humalog. Please dispense Relion Sig: Inject 6 units subcutaneously 30 minutes prior to evening meal Medications Discontinued During This Encounter insulin NPH human (NOVOLIN N) inject* 01/20/2017 02/28/2017 Class: Med Update Cmt: Dispense OTC Relion version Sig: Inject 12 units subcutaneously in the morning Disc: Reason for discontinue is not on file. insulin regular human (HUMULIN R U-1* 01/20/2017 02/28/2017 Class: Med Update Cmt: Please dispense OTC Relion version Sig: Inject 4 units subcutaneously 30 minutes prior to evening meal Disc: Reason for discontinue is not on file. insulin glargine (TOUJEO SOLOSTAR) 3* 3 Pen 1 02/28/2017 02/28/2017 Cmt: This replaces the NPH insulin Route: SUBCUTANEOUS Sig: Inject 12 Units subcutaneously every morning. Disc: Reason for discontinue is not on file. insulin lispro (HUMALOG KWIKPEN) 100* 5 Pen 1 02/28/2017 02/28/2017 Cmt: This replaces the R insulin Route: SUBCUTANEOUS Sig: Inject 6 Units subcutaneously daily with dinner. Disc: Reason for discontinue is not on file. Follow-up and Disposition History Recorded Encounter Status:Closed by VERONICA (PHARMACIST)SANDEEP on 02/21/17 ALLERGIES ALLERGIES DATE TYPE / CODE NAME / CODE REACTION SEVERITY SOURCE 06/05/2015 Drug No Known Unknown [facility] Allergy/416 Allergies/E82958 [facility] 931234(SNOM 0388(RXNORM) Repository ED CT) NG/[id number] NO KNOWN [place] [address](SNOMED ALLERGIES [facility]) Repository Drug NO KNOWN [facility] Class/21810 ALLERGIES [place] 1003(SNOMED Repository CT) ENCOUNTERS ENCOUNTERS ADMIT/DISCHARGE ACCOUNT NUMBER ADMITTING ENCOUNTER LOCATION SOURCE CLASS 02/03/2018/02/04/20 [id number] Ambulatory [address] Repository 01/25/2018/01/26/20 [id number] Ambulatory [address] Repository 01/25/2018/01/27/20 [id number] Ambulatory [address] Repository 01/18/2018 [id number] [facility] ding:POLAB3 Repository 12/28/2017/12/29/19 [id number] Ambulatory [address] Repository 12/26/2017 [id number] [facility] ding:US Repository 12/19/2017 [id number] [facility] ding:POLAB3 Repository 12/08/2017 [id number] Ambulatory [facility] MEDICAL Repository CENTERBuildi ng:CAGWS 11/06/2017/11/07/19 [id number] Ambulatory [address] Repository 10/25/2017/10/26/19 [id number] Ambulatory [address] [place] Repository 10/25/2017/10/27/19 [id number] Ambulatory [address] Repository 10/24/2017/10/25/19 [id number] Ambulatory [address] Repository 07/25/2017/07/27/19 [id number] Ambulatory [address] [place] Repository 05/25/2017/05/26/19 [id number] Ambulatory [address] [place] Repository 05/25/2017/05/27/19 [id number] Ambulatory [address] Repository 05/13/2017/05/14/19 [id number] Ambulatory [address] Repository 04/25/2017/04/27/19 [id number] Ambulatory [address] Repository 03/28/2017/03/28/19 [id number] Ambulatory [address] Repository 03/20/2017/03/20/19 [id number] Ambulatory [address] Repository 03/20/2017/03/20/19 [id number] Ambulatory [address] Repository 03/11/2017/03/11/19 [id number] Emergency [place] [facility] [address] [place] [address] ding:ED Repository PAYERS PAYERS ENCOUNTER GUARANTOR PAYER SUBSCRIBER SOURCE 01/18/2018 JACKIEBrooklynn ALVAREZ1684 Primary JACKIE Chase [place] Insurance:DARNELL ALVAREZB: [place] SENIOR [id number] Hospital [id number]: [phone] ADVANTAPolicy Number: Repository [phone] () [id number] Date:[id number] [address] [place] [address]ZM: 01/18/2018 Secondary NOT GIVENUNK [place] Insurance:SELF PAY [facility] Number: Effective Repository Date:2018-01-15 12/26/2017 JACKIE Gonzalo [id number] Primary JACKIE FRANCIS RDLOT Insurance:DARNELL THOMASB: [place] SEN[place] [id number] Hospital [id number]: [phone] ADVANTAPolicy Number: Repository [phone] () [id number] Date:[id number] [address] [place] [address] 21676QD: 12/26/2017 Secondary NOT GIVENUNK [place] Insurance:SELF PAY [facility] Number: Effective Repository Date:2017-12-19 12/19/2017 JACKIE [id number] Primary JACKIE ALVAREZDOB: [place] Insurance:ANTHRENAN [id number] [place] [address] Hospital [address]Kfx: [phone] ADVANTAPolicy Number: Repository [phone] () [id number] Date:[id number] [address] [place] [address] [place] [address]MN: 12/19/2017 Secondary NOT GIVENUNK [place] Insurance:SELF PAY [facility]: Effective Repository Date:2017-12-19 12/08/2017 JACKIE THOMASB: Primary JAKCIE Sánchez [facility] [id number] [facility]: [facility] [id number] [address] [address]Cta: [phone]) Number: [phone] () [id number] Date: 03/11/2017 JACKIE ALVAREZ1684 Primary JACKIE THOMASB: [facility]:ANTHEM [id number] [place] [address] Hospital [address]Sle: [phone] ADVANTAPolicy Number: Repository [phone] () [id number] Date:[id number] [address]NX: 03/11/2017 Secondary NOT GIVENUNK [place] Insurance:SELF PAY [facility] Number: Effective Repository Date:2017-03-11
== END ==
PROVIDERS: Family Provider Student in an Organized Health Care Education/Training Program; PCP Student in an Organized Health Care Education/Training Program; Visit Provider Internal Medicine Nephrology
DX: N18.4 Chronic kidney disease, stage 4 (severe) (principal)
CPT/HCPCS: 36415; 82565; 82575; 84156

== ENCOUNTER → 2018-05-25 09:15 | Outpatient (CLI) | payer MEDICARE, SELFPAY ==
[2017-03-11 13:13] VITALS: BMI 29.5
[2018-05-25 13:24] LABS: Hemoglobin 12.1 g/dl (12.0-15.0); Mean Corp Hgb Conc 31.8 g/gl (32-36); Mean Corpuscular Hgb 28.9 pg (27.0-32.0); Mean Corpuscular Volume 90.9 fL (81-99); Mean Platelet Vol. 10.1 fl (6.2-12.0); Platelet Count 243 K/mm3 (150-450); RBC Distribution Width CV 13.9 % (11.6-14.6); RBC Distribution Width SD 45.7 fl (35.1-43.9); Red Blood Count 4.18 M/mm3 (4.2-5.4); White Blood Count 6.5 K/mm3 (4.4-11.0)
[2018-05-25 13:29] LABS: Scan Indicated on CBC? Y/N NO
[2018-05-25 13:38] LABS: Albumin, Serum 3.5 g/dL (3.2-5.0); BUN 41 mg/dL (7-18); Chloride 107 mmol/L (98-107); Creatinine, Serum 1.95 mg/dL (0.55-1.02); EST Glomerular Filtration Rate 27 mL/min (>60); Est Glom Filt Rate - Afr Amer 32 mL/min (>60); Glucose 179 mg/dL (74-106); Phosphorus 3.9 mg/dL (2.5-4.9); Potassium 4.5 mmol/L (3.5-5.1); Sodium Level 140 mmol/L (136-145)
== END ==
PROVIDERS: Family Provider Student in an Organized Health Care Education/Training Program; PCP Student in an Organized Health Care Education/Training Program; Visit Provider Internal Medicine Nephrology
DX: E11.22 Type 2 diabetes mellitus with diabetic chronic kidney disease (principal); N18.4 Chronic kidney disease, stage 4 (severe)
CPT/HCPCS: 36415; 80069; 82570; 84156; 85027

== ENCOUNTER 2018-06-28 10:56 | Observation (INO) | payer MEDICARE, SELFPAY ==
[2018-06-28] VITALS (10 sets, daily range): BP systolic 139–175; BP diastolic 65–86; PULSE 70–84; RESP 14–23; TEMP 36.5–36.8; O2SAT 94–97; BMI 29.1; BMI 28.5
--- NOTE | 2018-06-28 11:17 | EKG12_ITS ---
Test Reason : CP Blood Pressure : / mmHG Vent. Rate : 073 BPM Atrial Rate : 073 BPM P-R Int : 200 ms QRS Dur : 136 ms QT Int : 434 ms P-R-T Axes : 065 009 190 degrees QTc Int : 478 ms Normal sinus rhythm Left bundle branch block Abnormal ECG Confirmed by ADITYA RANGEL ([id number]), dictionary editor ROCKY MUJICA ([id number]) on 07/02/2018 2:19:06 PM Referred By: Laureen Brandon Confirmed By:ADITYA RANGEL
--- NOTE | 2018-06-28 11:17 | RAD_ITS ---
STUDY: X-RAY CHEST REASON FOR EXAM: Female, 73 years old. Chest pain/dizziness. TECHNIQUE: Single AP portable view of the chest. COMPARISON: None. FINDINGS: EKG electrodes are seen. The lungs are clear and expanded. There is no demonstrated pleural abnormality. Normal size heart. Normal mediastinum and rosa. Normal visualized pulmonary arteries. There is atherosclerotic calcification of the aortic arch with tortuosity. There are diffuse degenerative changes of the visualized thoracic spine. Normal visualized ribs, clavicles, and shoulders. There is no demonstrated abnormality of the visualized soft tissue structures of the upper abdomen. RAD/Chest 1 View (Portable) IMPRESSION: No acute abnormality is seen. Electronically Signed: Isac Lopez, at 11:31 EDT , Service support ,
--- NOTE | 2018-06-28 11:19 | ED.VISSUMM ---
- ER Visit Summary Date of Service: 06/28/18 Chief Complaint: Lightheaded chest pain History of Present Illness: The patient is a 73 F who states that approximately 050 0 hours this morning she woke from sleep with a lower chest pressure nausea and lightheadedness. Just over 4 hours later she was at urgent care was stating that she is feeling better. They sent her to her primary care physician's office and sent her here. Patient notes history of diabetes hypertension and hypercholesterolemia. She denies any known prior heart disease. Patient states the chest pressure and nausea are better but her lightheadedness remains. She denies any vertiginous-like symptoms just states that she feels lightheaded when she gets up and moves. Physical Examination: Afebrile vital signs are stable Gen: Well-nourished well-developed Head: Normocephalic atraumatic Eyes: Perrl EOMI ENT: TMs clear no rhinorrhea moist mucous membranes Neck: Supple no lymphadenopathy no JVD nontender CVS: Regular rate rhythm no murmurs normal S1-S2 Respiratory: No distress clear to auscultation bilaterally chest nontender Abdomen: Soft nontender nondistended normal bowel sounds no masses Back: Nontender Extremity: Nontender no edema Skin: Normal color no rash Neuro: alert orientated ?3 CN II-XII intact normal strength sensation Psych: Normal affect normal mood Test Results: EKG demonstrates sinus rhythm at a rate of 73 with left bundle branch block (patient has a known left bundle branch block). Patient's creatinine level is 2. Her troponin is indeterminate 0.150. Chest x-ray is negative. Emergency Department Course and Treatment: Patient received aspirin. I spoke with on-call cardiology and Dr. Brandon and the patient will be admitted. She is symptom free. Impression: 1. Chest pain 2. Indeterminate troponin This note was generated with [employer] dictation software. It may contain incorrect words, spelling, and punctuation that were not noted in review of the chart prior to signing ED Disposition - Plan for ED Patient: Referrals: Timothy Gerber DO [Primary Care Provider] -
[2018-06-28 11:27] LABS: Absolute Lymphocyte Count 1.31 X10^3/ul (0.83-4.51); Absolute Neutrophil Count 6.8 X10^3/uL (2.0-7.7); Basophil# 0.02 X10^3/uL; Basophil% 0.2 % (0-1); Eosinophil# 0.11 X10^3/uL; Eosinophils% 1.3 % (0-5); Hemoglobin 12.7 g/dl (12.0-15.0); Lymphocyte # 1.31 X10^3/ul (4.0); Lymphocyte % 15.2 % (19-41); Mean Corp Hgb Conc 33.4 g/gl (32-36); Mean Corpuscular Hgb 29.6 pg (27.0-32.0); Mean Corpuscular Volume 88.6 fL (81-99); Mean Platelet Vol. 10.1 fl (6.2-12.0); Monocyte# 0.34 X10^3/uL; Neutrophil # 6.81 X10^3/uL (2.7-7.7); Neutrophil % 79.2 % (47-70); Platelet Count 221 K/mm3 (150-450); RBC Distribution Width CV 13.7 % (11.6-14.6); RBC Distribution Width SD 43.7 fl (35.1-43.9); Red Blood Count 4.29 M/mm3 (4.2-5.4); White Blood Count 8.6 K/mm3 (4.4-11.0)
[2018-06-28 11:28] LABS: POSITIVE COUNT NO; POSITIVE DIFFERENTIAL NO; POSITIVE MORPHOLOGY NO
[2018-06-28] MEDS: 0.9% Normal Saline 1,000 ML 1000 ML IV (11:32)
[2018-06-28] MEDS: Ondansetron 4 MG/2 ML Vial IV (11:32)
[2018-06-28 11:52] LABS: AST(SGOT) 23 U/L (15-37); Alanine Aminotransfer ALT/SGPT 40 U/L (13-56); Albumin, Serum 3.5 g/dL (3.2-5.0); Alkaline Phosphatase 53 U/L (45-117); Anion Gap 7 (5-15); BUN 46 mg/dL (7-18); BUN/Creat Ratio 22.4 RATIO (10-20); Bilirubin, Direct 0.07 mg/dL (0.00-0.30); Calcium,Total 9.9 mg/dL (8.5-10.1); Chloride 106 mmol/L (98-107); Creatinine, Serum 2.05 mg/dL (0.55-1.02); EST Glomerular Filtration Rate 25 mL/min (>60); Est Glom Filt Rate - Afr Amer 30 mL/min (>60); Estimated Creatinine Clearance 23.06 ml/min; Globulin 3.8 g/dL (2.2-4.2); Glucose 167 mg/dL (74-106); Lipase 325 U/L (73-393); Potassium 4.4 mmol/L (3.5-5.1); Protein, Total 7.3 g/dL (6.4-8.2); Sodium Level 141 mmol/L (136-145)
--- NOTE | 2018-06-28 12:13 | HP.PCM_ITS ---
History of Present Illness Date of Admission: 06/28/18 Chief Complaint: chest pain The patient is a 73 year old F with a past medical history which includes hypertension, hyperlipidemia and diabetes. She was admitted through the ED on 06/28/2018 with a complaint of sudden onset of left-sided chest pain. Pain s tarted early this morning and was pressure-like in nature with associated diaphoresis as well as increased sweating. She has never had pain like this before states he decided to go into the urgent care facility which she says nothing was done for her. She therefore went to see her PCP presented to the ED. She has a strong family history of heart disease with her mother and numerous sisters having heart attacks. She denied any fever chills or palpitations but admitted to associated nausea. Review of systems otherwise negative. Vitals in the ED was essentially stable. Chest x-ray showed no acute cardiopulmonary process. Creatinine was 2 which is around her baseline initial troponin was 0.15. CBC was unremarkable. EKG showed left bundle branch block which is chronic and no acute ST changes. She has been admitted to be managed for chest pain to rule out ACS. [] Past Medical History Allergies No Known Allergies Allergy (Verified 06/28/18 10:56) Home Medications: Ambulatory Orders Medication Instructions Recorded Amlodipine [Norvasc] 10 mg PO DAILY 06/28/18 Aspirin [Aspirin, Baby] 81 mg PO DAILY@0800 06/28/18 Atorvastatin Calcium [Lipitor] 40 mg PO QHS 06/28/18 Calcium Carb/Vitamin D3/Vit K1 1 each PO DAILY 06/28/18 [Calcium + D Soft Chewable Tab] Cholecalciferol (Vitamin D3) 5,000 unit PO DAILY 06/28/18 [Vitamin D3] Dextrose [Glucose] 16 gm PO PRN PRN 06/28/18 Escitalopram Oxalate [Lexapro] 5 mg PO DAILY 06/28/18 Insulin NPH Human [Humulin N (Bkc)] 12 units SC DINNER 06/28/18 Insulin NPH Human [Humulin N (Bkc)] 16 units SC BREAKFAST 06/28/18 Insulin Regular, Human [Humulin R] 4 unit IJ LUNCH 06/28/18 Insulin Regular, Human [Humulin R] 8 unit IJ DINNER 06/28/18 Insulin Regular, Human [Novolin R] 2 unit IJ BREAKFAST 06/28/18 Metoprolol Tartrate 25 mg PO BID 06/28/18 Surgical History: no surgical history Psychiatric History: No pertinent psych hx 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 Denies: Chest Tightness, Edema, Orthopnea, Paroxysmal Noc. Dyspnea, Syncope Respiratory: Denies: Cough, Shortness of Breath, Shortness of breath at rest, Shortness of breath upon exertion, Sputum production, Wheezing Gastrointestinal: Denies: Abdominal Pain Genitourinary: Denies: Dysuria Musculoskeletal: Denies: Joint Pain, Joint Tenderness Skin: Denies: Rash, Wounds Neurological: Denies: Numbness, Tingling, Focal weakness Psychiatric: Denies: Anxiety, Depression, Homicidal Ideations, Suicidal Ideations Hematologic/ Lymphatic: Denies: Easy Bruising, Easy Bleeding VTE Information - Inpt Only VTE Present on Admission: No VTE Pharm Prophylaxis ordered?: Yes - Physical Exam General: Alert, Oriented x3, Cooperative, No apparent distress HEENT: Atraumatic, PERRLA, EOMI, Normocephalic Oral: Moist Mucosa Neck: Supple, No JVD, Negative Carotid Bruits Lungs: Clear to auscultation, Normal air movement, No rhonchi, No wheeze, No rales Cardiovascular: Regular rate, Regular Rhythm, Normal S1, Normal S2, No murmurs Abdomen: Bowel Sounds Present, Soft, Non Tender, Non-Distended, No Hepato- splenomegaly Extremities: No clubbing, No cyanosis, No edema, Capillary Refill Less than 3 Seconds Skin: No rashes, No breakdown Musculoskeletal: No Tenderness to Palpation of Joints or Extremities Lymphatic: No Cervical, Supraclavicular, or Inguinal Adenopathy Neurological: Cranial nerves II-XII grossly intact, Neuro grossly intact, Motor Exam 5/5 strength throughout Psych/Mental Status: Normal Affect, Appropriate, Alert and oriented to time, place, person, mood and affect Vital Signs Temp Pulse Resp BP Pulse Ox 97.7 F L 70 23 H 139/65 H 97 06/28/18 10:56 06/28/18 12:08 06/28/18 12:08 06/28/18 12:08 06/28/18 12:08 Oxygen Flow Rate (L/min) 2 Oxygen Delivery Method Nasal Cannula Weight: 186 lb 4.65 oz Body Mass Index (BMI) 29.1 Finger Stick Blood Glucose 277 Laboratory Tests Past 24 Hrs 06/28/18 06/28/18 11:10 11:14 WBC 8.6 RBC 4.29 Hgb 12.7 Hct 38.0 MCV 88.6 MCH 29.6 MCHC 33.4 RDW 13.7 RDW Differential 43.7 Plt Count 221 MPV 10.1 Immature Gran % (Auto) 0.100 Neut % (Auto) 79.2 H Lymph % (Auto) 15.2 L [place] % (Auto) 4.0 Eos % (Auto) 1.3 Baso % (Auto) 0.2 Absolute Neuts (auto) 6.8 Absolute Lymphs (auto) 1.31 Total Counted Not Reportable Sodium 141 Potassium 4.4 Chloride 106 Carbon Dioxide 28.0 Anion Gap 7 BUN 46 H Creatinine 2.05 H Estim Creat Clear Calc 23.06 Est GFR (MDRD) Af Amer 30 L Est GFR (MDRD) Non-Af 25 L BUN/Creatinine Ratio 22.4 H Glucose 167 H Calcium 9.9 Total Bilirubin 0.20 Direct Bilirubin 0.07 AST 23 ALT 40 Alkaline Phosphatase 53 Troponin I 0.150 H Total Protein 7.3 Albumin 3.5 Globulin 3.8 Lipase 325 Diagnostic Data Chest X-Ray 06/28/18 11:17 IMPRESSION: No acute abnormality is seen. Electronically Signed: Isac Lopez, at 11:31 EDT , Service support , Assessment/Plan 73 y/o female admitted with a complaint of chest pain 1. Chest pain, to r/o ACS * initial troponin was 0.15; Cr was 2, which is around her baseline. * EKG showed no acute ST changes and showed LBBB which is old. * HEART score is 8 * admit to PCU with telemetry * cycle troponins * SL nitro prn; aspirin 81mg daily * consult cardiology, in light of patient's extensive risk factors including HTN, hyperlipidemia, diabetes, history of nicotine use, and strong family history, she has a high pretest probability of heart disease, and so she will benefit from going straight for cardiac cath. * * 2. Diabetes mellitus: keep NPO for now, pending cardiology evaluation. ISS. Accuchecks ACHS 3. Hypertension: on amlodipine and metoprolol 4. Hyperlipidemia: on statin DVT prophlaxis: heparin Code Visit OBSV E&M: 82241 Initial observation care L3
[2018-06-28] MEDS: Aspirin 81 MG TAB.CHEW 324 MG PO (12:20)
--- NOTE | 2018-06-28 12:39 | CASEMGMT ---
RN CM Assessment Introduced role of RN CM to patient and patient daughter Kanchan at bedside.? Patient is alert, oriented and able?to participate in RN CM Assessment. ?Care providers, pharmacy, and demographics verified. Presentation: CP, SOB, Lightheaded, Nausea Admit Dx: CP Re-Admit: No Barriers/Issues: None PCP: Timothy Gerber Specialists: Brett Magana Preferred Pharmacy: [facility] Insurance: [place] [facility] Rx Benefit:?Yes LNOK: Daughter Kanchan Gao LW/HPOA: Yes Both, not on file at [facility], OA-Dtr Kanchan Murray Living Arrangements:? Lives with Dtr Kanchan in a mobile home, 3 steps to enter ADL?s: Independent with ambulation and ADL's Transportation: Dtr Kanchan and same for DC DME: [employer] HHC: None SNF: None Goal: Return Home, denies Questions/Concerns at this time. DC PLAN: Home with no anticipated needs identified at this time. Kai Mcmillan RNCM
--- NOTE | 2018-06-28 13:10 | CASEMGMT ---
Per RN CM assessment patient has a Healthcare POA and Healthcare LW. She is aware they are not on file. Sheyla MONTEJO MSW
[2018-06-28 13:39] LABS: BNP,B-Type NATRIURETIC PEPTIDE 60.9 pg/mL (0-100)
--- NOTE | 2018-06-28 14:51 | PCM.CONS.C ---
Reason for Consult Reason for Consultation: Chest pain, unstable angina History of Present Illness: The patient is a 73 year old F [with past medical history of hypertension, diabetes, dyslipidemia coming to [facility] because of chest pressure that started this morning. The chest pressure was retrosternal, it woke her up from sleep, it was worse with exertion. It was associated with nausea and lightheadedness. Lightheadedness was worse with getting up from a sitting or lying position. Patient has CKD with a baseline creatinine close to 2. Her troponin was 0.15, 0.147] Past Medical History Allergies/Adverse Reactions: Allergies No Known Allergies Allergy (Verified 06/28/18 10:56) Home Medications: Ambulatory Orders Medication Instructions Recorded Amlodipine [Norvasc] 10 mg PO DAILY 06/28/18 Aspirin [Aspirin, Baby] 81 mg PO DAILY@0800 06/28/18 Atorvastatin Calcium [Lipitor] 40 mg PO QHS 06/28/18 Calcium Carb/Vitamin D3/Vit K1 1 each PO DAILY 06/28/18 [Calcium + D Soft Chewable Tab] Cholecalciferol (Vitamin D3) 5,000 unit PO DAILY 06/28/18 [Vitamin D3] Dextrose [Glucose] 4 gm PO PRN PRN 06/28/18 Escitalopram Oxalate [Lexapro] 5 mg PO DAILY 06/28/18 Insulin NPH Human [Humulin N (Bkc)] 12 units SC DINNER 06/28/18 Insulin NPH Human [Humulin N (Bkc)] 16 units SC BREAKFAST 06/28/18 Insulin Regular, Human [Humulin R] 4 unit SQ LUNCH 06/28/18 Insulin Regular, Human [Humulin R] 8 unit SQ DINNER 06/28/18 Insulin Regular, Human [Novolin R] 2 unit SQ BREAKFAST 06/28/18 Metoprolol Tartrate 25 mg PO BID 06/28/18 Surgical History: no surgical history Psychiatric History: No pertinent psych hx SAFETY RISK LEAD History: No pertinent SAFETY RISK LEAD history - *Family History Maternal History Items: Heart Disease, Hypertension Sibling History Items: Heart Disease, Hypertension, Stroke Lives: With Family Smoking Status: Former smoker Alcohol: Occasional Drugs: None Review of Systems - Review of Systems General: Denies: Fever, Fatigue HEENT: Denies: Vision Change, Hearing Changes, Ear Pain Cardiovascular: Reports: Chest Discomfort, Chest Tightness, Chest Heaviness, Lightheadedness, Dizziness Respiratory: Denies: Cough, Hemoptysis Gastrointestinal: Reports: Nausea Genitourinary: Denies: Dysuria Muscoloskeletal: Denies: Myalgias, Muscle Cramps Skin: Denies: Rash Neurological: Reports: Dizziness Psychiatric: Denies: Anxiety Objective: Vital Signs Temp Pulse Resp BP Pulse Ox 98.3 F 79 16 158/86 H 96 06/28/18 13:00 06/28/18 13:00 06/28/18 13:00 06/28/18 13:00 06/28/18 13:00 Oxygen Flow Rate (L/min) 2 Oxygen Delivery Method Room Air Weight: 181 lb 14.102 oz Body Mass Index (BMI) 28.5 Finger Stick Blood Glucose 277 General: Awake, Alert, Oriented x 3 HEENT: PERRL, EOMI, Sclera Non Icteric Neck: Supple, Good ROM, No Lymph Node Enlargement Lungs: Clear to auscultation Cardiovascular: Regular Rhythm, Normal S1, Normal S2, No Murmurs, No Rubs, No Gallops Vascular: Normal Radial Pulses, Normal Dorsalis Pedal Pulse, Normal Posterior Tibial Pulses Abdomen: Bowel Sounds Present, Soft, Non Tender Extremities: No Cyanosis, No Clubbing, No edema Neurological: No Focal Motor or Sensory Deficit 06/28/18 11:10: WBC 8.6, RBC 4.29, Hgb 12.7, Hct 38.0, MCV 88.6, MCH 29.6, MCHC 33.4, RDW 13.7, RDW Differential 43.7, Plt Count 221, MPV 10.1, Immature Gran % (Auto) 0.100, Neut % (Auto) 79.2 H, Lymph % (Auto) 15.2 L, [place] % (Auto) 4.0, Eos % (Auto) 1.3, Baso % (Auto) 0.2, Absolute Neuts (auto) 6.8, Total Counted Not Reportable 06/28/18 11:10: B-Natriuretic Peptide 60.9 06/28/18 11:14: Sodium 141, Potassium 4.4, Chloride 106, Carbon Dioxide 28.0, Anion Gap 7, BUN 46 H, Creatinine 2.05 H, Est GFR (MDRD) Af Amer 30 L, Est GFR (MDRD) Non-Af 25 L, BUN/Creatinine Ratio 22.4 H, Glucose 167 H, Calcium 9.9, Total Bilirubin 0.20, Direct Bilirubin 0.07, Troponin I 0.150 H 06/28/18 13:55: Troponin I 0.147 H Rhythm: EKG: Normal sinus rhythm, left bundle branch block ECHO: 2015: Preserved LV systolic function. Aortic sclerosis with no stenosis Stress Test: Cardiac Cath: PCI: CT Surgery: Holter monitor: EPS: PPM: CXR: Chest CT Scan: Assessment/Plan 1. Chest pain: Patient's troponin is mildly elevated. She does have significant risk factors for coronary artery disease. Her chest pain is typical by history. I discussed the risks and benefits of all approaches including cardiac catheterization in detail with the patient. Risk of contrast-induced nephropathy that could result in dialysis was discussed with the patient as well. Other risks of cardiac catheterization were discussed as well. Patient is willing to undergo cardiac catheterization after understanding the risks and benefits. We will gently hydrate the patient overnight and plan for cardiac catheterization tomorrow. Please keep the patient on aspirin, statin, beta-eusebia and also weight-based IV heparin. 2. Hypertension: Patient has some orthostatic dizziness symptoms. Once this resolves we will consider adjusting medications.
--- NOTE | 2018-06-28 14:57 | CON.PCM_ITS ---
Reason for Consult Reason for Consultation: Chest pain, unstable angina History of Present Illness: The patient is a 73 year old F [with past medical history of hypertension, diabetes, dyslipidemia coming to [facility] because of chest pressure that started this morning. The chest pressure was retrosternal, it woke her up from sleep, it was worse with exertion. It was associated with nausea and lightheadedness. Lightheadedness was worse with getting up from a sitting or lying position. Patient has CKD with a baseline creatinine close to 2. Her troponin was 0.15, 0.147] Past Medical History Allergies/Adverse Reactions: Allergies No Known Allergies Allergy (Verified 06/28/18 10:56) Home Medications: Ambulatory Orders Medication Instructions Recorded Amlodipine [Norvasc] 10 mg PO DAILY 06/28/18 Aspirin [Aspirin, Baby] 81 mg PO DAILY@0800 06/28/18 Atorvastatin Calcium [Lipitor] 40 mg PO QHS 06/28/18 Calcium Carb/Vitamin D3/Vit K1 1 each PO DAILY 06/28/18 [Calcium + D Soft Chewable Tab] Cholecalciferol (Vitamin D3) 5,000 unit PO DAILY 06/28/18 [Vitamin D3] Dextrose [Glucose] 4 gm PO PRN PRN 06/28/18 Escitalopram Oxalate [Lexapro] 5 mg PO DAILY 06/28/18 Insulin NPH Human [Humulin N (Bkc)] 12 units SC DINNER 06/28/18 Insulin NPH Human [Humulin N (Bkc)] 16 units SC BREAKFAST 06/28/18 Insulin Regular, Human [Humulin R] 4 unit SQ LUNCH 06/28/18 Insulin Regular, Human [Humulin R] 8 unit SQ DINNER 06/28/18 Insulin Regular, Human [Novolin R] 2 unit SQ BREAKFAST 06/28/18 Metoprolol Tartrate 25 mg PO BID 06/28/18 Surgical History: no surgical history Psychiatric History: No pertinent psych hx 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 - *Family History Maternal History Items: Heart Disease, Hypertension Sibling History Items: Heart Disease, Hypertension, Stroke Lives: With Family Smoking Status: Former smoker Alcohol: Occasional Drugs: None Review of Systems - Review of Systems General: Denies: Fever, Fatigue HEENT: Denies: Vision Change, Hearing Changes, Ear Pain Cardiovascular: Reports: Chest Discomfort, Chest Tightness, Chest Heaviness, Lightheadedness, Dizziness Respiratory: Denies: Cough, Hemoptysis Gastrointestinal: Reports: Nausea Genitourinary: Denies: Dysuria Muscoloskeletal: Denies: Myalgias, Muscle Cramps Skin: Denies: Rash Neurological: Reports: Dizziness Psychiatric: Denies: Anxiety Objective: Vital Signs Temp Pulse Resp BP Pulse Ox 98.3 F 79 16 158/86 H 96 06/28/18 13:00 06/28/18 13:00 06/28/18 13:00 06/28/18 13:00 06/28/18 13:00 Oxygen Flow Rate (L/min) 2 Oxygen Delivery Method Room Air Weight: 181 lb 14.102 oz Body Mass Index (BMI) 28.5 Finger Stick Blood Glucose 277 General: Awake, Alert, Oriented x 3 HEENT: PERRL, EOMI, Sclera Non Icteric Neck: Supple, Good ROM, No Lymph Node Enlargement Lungs: Clear to auscultation Cardiovascular: Regular Rhythm, Normal S1, Normal S2, No Murmurs, No Rubs, No Gallops Vascular: Normal Radial Pulses, Normal Dorsalis Pedal Pulse, Normal Posterior Tibial Pulses Abdomen: Bowel Sounds Present, Soft, Non Tender Extremities: No Cyanosis, No Clubbing, No edema Neurological: No Focal Motor or Sensory Deficit 06/28/18 11:10: WBC 8.6, RBC 4.29, Hgb 12.7, Hct 38.0, MCV 88.6, MCH 29.6, MCHC 33.4, RDW 13.7, RDW Differential 43.7, Plt Count 221, MPV 10.1, Immature Gran % (Auto) 0.100, Neut % (Auto) 79.2 H, Lymph % (Auto) 15.2 L, [place] % (Auto) 4.0, Eos % (Auto) 1.3, Baso % (Auto) 0.2, Absolute Neuts (auto) 6.8, Total Counted Not Reportable 06/28/18 11:10: B-Natriuretic Peptide 60.9 06/28/18 11:14: Sodium 141, Potassium 4.4, Chloride 106, Carbon Dioxide 28.0, Anion Gap 7, BUN 46 H, Creatinine 2.05 H, Est GFR (MDRD) Af Amer 30 L, Est GFR (MDRD) Non-Af 25 L, BUN/Creatinine Ratio 22.4 H, Glucose 167 H, Calcium 9.9, Total Bilirubin 0.20, Direct Bilirubin 0.07, Troponin I 0.150 H 06/28/18 13:55: Troponin I 0.147 H Rhythm: EKG: Normal sinus rhythm, left bundle branch block ECHO: 2015: Preserved LV systolic function. Aortic sclerosis with no stenosis Stress Test: Cardiac Cath: PCI: CT Surgery: Holter monitor: EPS: PPM: CXR: Chest CT Scan: Assessment/Plan 1. Chest pain: Patient's troponin is mildly elevated. She does have significant risk factors for coronary artery disease. Her chest pain is typical by history. I discussed the risks and benefits of all approaches including cardiac catheterization in detail with the patient. Risk of contrast-induced nephropathy that could result in dialysis was discussed with the patient as well. Other risks of cardiac catheterization were discussed as well. Patient is willing to undergo cardiac catheterization after understanding the risks and benefits. We will gently hydrate the patient overnight and plan for cardiac catheterization tomorrow. Please keep the patient on aspirin, statin, beta- eusebia and also weight-based IV heparin. 2. Hypertension: Patient has some orthostatic dizziness symptoms. Once this resolves we will consider adjusting medications.
[2018-06-28] MEDS: Insulin Lispro 100 UNIT/ML INSULN.PEN SC (15:02)
[2018-06-28] MEDS: 0.9% Normal Saline 1,000 ML 60 ML IV (15:44)
[2018-06-28] MEDS: Insulin Lispro 100 UNIT/ML INSULN.PEN 8 UNIT SC (16:59)
[2018-06-28] MEDS: Insulin NPH Human 100 UNITS/ML PEN 12 UNITS SC (17:00)
[2018-06-28 17:15] LABS: Bedside Glucose 140 mg/dL (70-110)
[2018-06-28 17:59] LABS: Bacteria 0 SEEN /hpf (None Seen); Mucous, Urine 0 SEEN /hpf (<or=2+); Red Blood Cells-Urine 0 SEEN /hpf (0-5); Squamous Epithelial Cells - UA 0 SEEN /hpf (5-10); White Blood Cells 0 SEEN /hpf (0-5)
[2018-06-28 18:05] LABS: Color, Urine Yellow (Yellow); Glucose, Dipstick Normal (Normal); Ketone-Dipstick Negative (Negative); Leukocyte Esterase-Dipstick Negative /ul (Negative); Nitrite-Dipstick Negative (Negative); Occult Blood-Urine Negative /ul (Negative); Protein-Dipstick Negative (Negative); Urine Bilirubin Dipstick Negative (Negative); Urine Clarity Clear (Clear); Urine Urobilinogen Normal (Normal)
[2018-06-28] MEDS: Atorvastatin Calcium 40 MG Tablet PO (21:31)
[2018-06-28] MEDS: Metoprolol Tartrate 25 MG Tablet PO (21:31)
[2018-06-28 23:25] LABS: Bedside Glucose 79 mg/dL (70-110)
[2018-06-29] VITALS (13 sets, daily range): BP systolic 127–184; BP diastolic 68–95; PULSE 70–82; RESP 15–16; TEMP 36.4–36.8; O2SAT 92–96
--- NOTE | 2018-06-29 05:07 | NURSING ---
Pt HS blood sugar only 79. Pt provided with orange juice, milk, soda, and Alison Doones.
[2018-06-29 05:55] LABS: Absolute Lymphocyte Count 1.72 X10^3/ul (0.83-4.51); Absolute Neutrophil Count 3.4 X10^3/uL (2.0-7.7); Basophil# 0.03 X10^3/uL; Basophil% 0.5 % (0-1); Eosinophil# 0.23 X10^3/uL; Hematocrit 37.9 % (37-47); Hemoglobin 12.1 g/dl (12.0-15.0); Lymphocyte # 1.72 X10^3/ul (4.0); Lymphocyte % 29.8 % (19-41); Mean Corp Hgb Conc 31.9 g/gl (32-36); Mean Corpuscular Hgb 29.1 pg (27.0-32.0); Mean Corpuscular Volume 91.1 fL (81-99); Mean Platelet Vol. 10.4 fl (6.2-12.0); Monocyte# 0.38 X10^3/uL; Monocyte% 6.6 % (0-10); Neutrophil % 58.9 % (47-70); POSITIVE COUNT NO; POSITIVE DIFFERENTIAL NO; POSITIVE MORPHOLOGY NO; Platelet Count 199 K/mm3 (150-450); RBC Distribution Width CV 13.9 % (11.6-14.6); RBC Distribution Width SD 45.2 fl (35.1-43.9); Red Blood Count 4.16 M/mm3 (4.2-5.4); White Blood Count 5.8 K/mm3 (4.4-11.0)
--- NOTE | 2018-06-29 05:55 | EKG12_ITS ---
Test Reason : AM Blood Pressure : / mmHG Vent. Rate : 086 BPM Atrial Rate : 086 BPM P-R Int : 230 ms QRS Dur : 132 ms QT Int : 370 ms P-R-T Axes : 065 028 207 degrees QTc Int : 442 ms Sinus rhythm with 1st degree A-V block Left bundle branch block Abnormal ECG Confirmed by RYLAN PANCHAL, GONZÁLEZ ([id number]), brands editor ROCKY MUJICA ([id number]) on 07/04/2018 2:03:06 PM Referred By: Laureen Brandon Confirmed By:GONZÁLEZ FAGAN MD
[2018-06-29 05:56] LABS: International Normalized Ratio 1.1; Prothrombin Time (Protime)PT. 13.5 SECONDS (11.7-14.9)
[2018-06-29] MEDS: Metoprolol Tartrate 25 MG Tablet PO (06:07)
[2018-06-29] MEDS: Aspirin 81 MG TAB.CHEW PO (06:07)
[2018-06-29] MEDS: amLODIPine 10 MG Tablet PO (06:08)
[2018-06-29 06:10] LABS: Anion Gap 5 (5-15); BUN 38 mg/dL (7-18); Calcium,Total 8.8 mg/dL (8.5-10.1); Chloride 112 mmol/L (98-107); Creatinine, Serum 1.73 mg/dL (0.55-1.02); EST Glomerular Filtration Rate 31 mL/min (>60); Est Glom Filt Rate - Afr Amer 37 mL/min (>60); Estimated Creatinine Clearance 27.32 ml/min; Glucose 113 mg/dL (74-106); Potassium 4.1 mmol/L (3.5-5.1); Sodium Level 146 mmol/L (136-145)
[2018-06-29] MEDS: 0.9% NaCl Peripheral Flush Adult/Peds IV (08:09)
[2018-06-29] MEDS: 0.9% Normal Saline 1,000 ML 60 ML IV (08:09)
[2018-06-29 08:11] LABS: Bedside Glucose 206 mg/dL (70-110)
--- NOTE | 2018-06-29 08:41 | NURSING ---
Called report to Ata GARCIA in computer lab para professional
--- NOTE | 2018-06-29 08:52 | CASEMGMT ---
According to the [facility] website, the following are in-network tertiary facilities: [facility], [facility], [facility], [facility], [facility], [facility], [facility], [facility], [facility], and . Sherine GARCIA CM
[2018-06-29] MEDS: Calcium Carb/Vitamin D 1 TABLET Tablet PO (10:30)
[2018-06-29] MEDS: Escitalopram Oxalate 10 MG Tablet 5 MG PO (10:30)
[2018-06-29] MEDS: Insulin Lispro 100 UNIT/ML INSULN.PEN SC (10:32)
[2018-06-29] MEDS: Insulin NPH Human 100 UNITS/ML PEN 16 UNITS SC (10:33)
[2018-06-29 10:41] LABS: Bedside Glucose 146 mg/dL (70-110)
--- NOTE | 2018-06-29 12:02 | DCINST_ITS ---
You will use the following diet at home:: Calorie/Carbohydrate Controlled (specify 1200, 1400, etc) - 1800, Cardiac Your food should be the consistency of: Regular Discharge Activity: Return to Normal Activity Call your doctor if you observe: Fever of 101 or Higher Allergies/Adverse Reactions: Allergies No Known Allergies Allergy (Verified 06/28/18 10:56) Medications to take at Discharge Amlodipine [Norvasc] 10 mg PO DAILY 06/28/18 Aspirin [Aspirin, Baby] 81 mg PO DAILY@0800 06/28/18 Atorvastatin Calcium [Lipitor] 40 mg PO QHS 06/28/18 Calcium Carb/Vitamin D3/Vit K1 [Calcium + D Soft Chewable Tab] 1 each PO DAILY 06/28/18 Cholecalciferol (Vitamin D3) [Vitamin D3] 5,000 unit PO DAILY 06/28/18 Dextrose [Glucose] 4 gm PO PRN PRN 06/28/18 Escitalopram Oxalate [Lexapro] 5 mg PO DAILY 06/28/18 Insulin NPH Human [Humulin N Pen] 12 units SC DINNER 06/28/18 Insulin NPH Human [Humulin N Pen] 16 units SC BREAKFAST 06/28/18 Insulin Regular, Human [Humulin R] 4 unit SQ LUNCH 06/28/18 Insulin Regular, Human [Humulin R] 8 unit SQ DINNER 06/28/18 Insulin Regular, Human [Novolin R] 2 unit SQ BREAKFAST 06/28/18 Metoprolol Tartrate 25 mg PO BID 06/28/18 Orders to be completed after discharge: Basic Metabolic Profile (BMP) Time Frame: 1 Week, Location: Laboratory Primary Care Physician: Timothy Gerber DO [Primary Care Provider] - Test Results: Test results from this visit will be discussed in further detail at your follow- up appointment, if applicable. Proposed Discharge Date: 06/29/18
--- NOTE | 2018-06-29 12:02 | PCM.DC.SUM ---
Discharge Date and Diagnosis - Problem List Patient Problems: Active and Suspected Problems Chest pain (Acute) Date of Admission: 06/28/18 Date of Discharge: 06/29/18 - Primary Discharge Diagnosis Active and Suspected Problems Chest pain (Acute) Hospital Course and Treatment Imaging Results: Clinical Impression(s) from Imaging Studies Chest X-Ray 06/28/18 11:17 IMPRESSION: No acute abnormality is seen. Electronically Signed: Isac Lopez, at 11:31 EDT , Service support , MD Jonny: cardiology. Operations: None Procedures: Cardiac catheterization Summary of Care Provided: The patient is a 73 year old F presents with chest pain. Chest pain was left-sided and pressure-like. Additionally, she had diaphoresis. Patient had troponins that were marginal at 0.15-0 0.147-0.16. Patient underwent a left heart catheterization that showed minimal coronary disease. Recommended just medical therapy. Patient does have chronic kidney disease stage IV and some this troponins may be been skewed due to her chronic kidney disease. There is no prior troponins to compare to in the [employer] system to see if she is been this high previously. Currently, the patient is pain-free and will be discharged home in stable condition. Patient is already on aspirin, atorvastatin and metoprolol. Patient is not a candidate for DANIEL inhibitors given her chronic kidney disease. Given the patient's chronic kidney disease patient instructed to have her BMP checked next week. [] Patient Problems: Active and Suspected Problems Chest pain (Acute) - Physical Exam General: Alert, No apparent distress HEENT: Atraumatic, Normocephalic Oral: Moist Mucosa, No Gingival or Mucosal Lesions/ Ulcerations Neck: No Nodes, Thyroid Normal Size and Texture Lungs: Clear to auscultation, Normal air movement, No rhonchi, No wheeze Cardiovascular: Regular rate, Regular Rhythm, Normal S1, Normal S2, No murmurs Abdomen: Bowel Sounds Present, Soft, Non Tender, Non-Distended Vital Signs Temp Pulse Resp BP Pulse Ox 36.4 C L 78 16 150/71 H 94 06/29/18 09:45 06/29/18 11:30 06/29/18 11:30 06/29/18 11:30 06/29/18 11:30 Oxygen Flow Rate (L/min) 1 Oxygen Delivery Method Room Air Weight: 82.5 kg Body Mass Index (BMI) 28.5 Finger Stick Blood Glucose 277 Intake and Output for Last 24 Hours 06/27/18 06/28/18 06/29/18 23:59 23:59 23:59 Intake Total 923.7 / 923.7 842 / 842 Balance 923.7 / 923.7 842 / 842 Laboratory Tests Past 24 Hrs 06/28/18 06/28/18 06/28/18 11:10 13:55 17:08 WBC RBC Hgb Hct MCV MCH MCHC RDW RDW Differential Plt Count MPV Immature Gran % (Auto) Neut % (Auto) Lymph % (Auto) [place] % (Auto) Eos % (Auto) Baso % (Auto) Absolute Neuts (auto) Absolute Lymphs (auto) Total Counted PT INR APTT Sodium Potassium Chloride Carbon Dioxide Anion Gap BUN Creatinine Estim Creat Clear Calc Est GFR (MDRD) Af Amer Est GFR (MDRD) Non-Af BUN/Creatinine Ratio Glucose Calcium Troponin I 0.147 H 0.160 H B-Natriuretic Peptide 60.9 Urine Color Urine Clarity Urine pH Ur Specific [place] Urine Protein Urine Glucose (UA) Urine Ketones Urine Occult Blood Urine Nitrite Urine Bilirubin Urine Urobilinogen Ur Leukocyte Esterase Urine RBC Urine WBC Ur Squamous Epith Cells Urine Bacteria Urine Mucus 06/28/18 06/29/18 06/29/18 17:51 05:25 05:25 WBC 5.8 RBC 4.16 L Hgb 12.1 Hct 37.9 MCV 91.1 MCH 29.1 MCHC 31.9 L RDW 13.9 RDW Differential 45.2 H Plt Count 199 MPV 10.4 Immature Gran % (Auto) 0.200 Neut % (Auto) 58.9 Lymph % (Auto) 29.8 [place] % (Auto) 6.6 Eos % (Auto) 4.0 Baso % (Auto) 0.5 Absolute Neuts (auto) 3.4 Absolute Lymphs (auto) 1.72 Total Counted Not Reportable PT INR APTT Sodium 146 H Potassium 4.1 Chloride 112 H Carbon Dioxide 29.0 Anion Gap 5 BUN 38 H Creatinine 1.73 H Estim Creat Clear Calc 27.32 Est GFR (MDRD) Af Amer 37 L Est GFR (MDRD) Non-Af 31 L BUN/Creatinine Ratio 22.0 H Glucose 113 H Calcium 8.8 Troponin I B-Natriuretic Peptide Urine Color Yellow Urine Clarity Clear Urine pH 6.0 Ur Specific [place] 1.010 Urine Protein Negative Urine Glucose (UA) Normal Urine Ketones Negative Urine Occult Blood Negative Urine Nitrite Negative Urine Bilirubin Negative Urine Urobilinogen Normal Ur Leukocyte Esterase Negative Urine RBC 0 SEEN Urine WBC 0 SEEN Ur Squamous Epith Cells 0 SEEN Urine Bacteria 0 SEEN Urine Mucus 0 SEEN 06/29/18 05:25 WBC RBC Hgb Hct MCV MCH MCHC RDW RDW Differential Plt Count MPV Immature Gran % (Auto) Neut % (Auto) Lymph % (Auto) [place] % (Auto) Eos % (Auto) Baso % (Auto) Absolute Neuts (auto) Absolute Lymphs (auto) Total Counted PT 13.5 INR 1.1 APTT 24.0 L Sodium Potassium Chloride Carbon Dioxide Anion Gap BUN Creatinine Estim Creat Clear Calc Est GFR (MDRD) Af Amer Est GFR (MDRD) Non-Af BUN/Creatinine Ratio Glucose Calcium Troponin I B-Natriuretic Peptide Urine Color Urine Clarity Urine pH Ur Specific [place] Urine Protein Urine Glucose (UA) Urine Ketones Urine Occult Blood Urine Nitrite Urine Bilirubin Urine Urobilinogen Ur Leukocyte Esterase Urine RBC Urine WBC Ur Squamous Epith Cells Urine Bacteria Urine Mucus POC Glucose 06/29/18 06/29/18 06/28/18 10:27 07:03 21:35 POC Glucose 146 H 206 H 79 06/28/18 16:55 POC Glucose 140 H Discharge Diet: Low fat/ Low Cholesterol, 1800 Calorie Control Diet Discharge Activity: Return to Normal Activity Call your doctor if you observe: Fever of 101 or Higher Home Medications: Medications to take at Discharge Amlodipine [Norvasc] 10 mg PO DAILY 06/28/18 Aspirin [Aspirin, Baby] 81 mg PO DAILY@0800 06/28/18 Atorvastatin Calcium [Lipitor] 40 mg PO QHS 06/28/18 Calcium Carb/Vitamin D3/Vit K1 [Calcium + D Soft Chewable Tab] 1 each PO DAILY 06/28/18 Cholecalciferol (Vitamin D3) [Vitamin D3] 5,000 unit PO DAILY 06/28/18 Dextrose [Glucose] 4 gm PO PRN PRN 06/28/18 Escitalopram Oxalate [Lexapro] 5 mg PO DAILY 06/28/18 Insulin NPH Human [Humulin N Pen] 12 units SC DINNER 06/28/18 Insulin NPH Human [Humulin N Pen] 16 units SC BREAKFAST 06/28/18 Insulin Regular, Human [Humulin R] 4 unit SQ LUNCH 06/28/18 Insulin Regular, Human [Humulin R] 8 unit SQ DINNER 06/28/18 Insulin Regular, Human [Novolin R] 2 unit SQ BREAKFAST 06/28/18 Metoprolol Tartrate 25 mg PO BID 06/28/18 Other Amb Orders: Basic Metabolic Profile (BMP) Time Frame: 1 Week, Location: Laboratory Primary Care Physician: Timothy Gerber DO [Primary Care Provider] - Disposition: Home Minutes spent on discharge:: 28 Patient Condition:: Fair Medical Necessity - Tobacco Use Smoking Status: Former smoker - quit in 2011; had ~ 94 pack year history Meaningful Use Info Meaningful Use Diagnoses (Choose all that apply): None applicable Code Visit OBSV E&M: 11880 Observation care discharge
--- NOTE | 2018-06-29 12:05 | DS.PCM_ITS ---
Discharge Date and Diagnosis - Problem List Patient Problems: Active and Suspected Problems Chest pain (Acute) Date of Admission: 06/28/18 Date of Discharge: 06/29/18 - Primary Discharge Diagnosis Active and Suspected Problems Chest pain (Acute) Hospital Course and Treatment Imaging Results: Clinical Impression(s) from Imaging Studies Chest X-Ray 06/28/18 11:17 IMPRESSION: No acute abnormality is seen. Electronically Signed: Isac Lopez, at 11:31 EDT , Service support , MD Jonny: cardiology. Operations: None Procedures: Cardiac catheterization Summary of Care Provided: The patient is a 73 year old F presents with chest pain. Chest pain was left- sided and pressure-like. Additionally, she had diaphoresis. Patient had troponins that were marginal at 0.15-0 0.147-0.16. Patient underwent a left heart catheterization that showed minimal coronary disease. Recommended just medical therapy. Patient does have chronic kidney disease stage IV and some this troponins may be been skewed due to her chronic kidney disease. There is no prior troponins to compare to in the [employer] system to see if she is been this high previously. Currently, the patient is pain-free and will be discharged home in stable condition. Patient is already on aspirin, atorvastatin and metoprolol. Patient is not a candidate for DANIEL inhibitors given her chronic kidney disease. Given the patient's chronic kidney disease patient instructed to have her BMP checked next week. [] Patient Problems: Active and Suspected Problems Chest pain (Acute) - Physical Exam General: Alert, No apparent distress HEENT: Atraumatic, Normocephalic Oral: Moist Mucosa, No Gingival or Mucosal Lesions/ Ulcerations Neck: No Nodes, Thyroid Normal Size and Texture Lungs: Clear to auscultation, Normal air movement, No rhonchi, No wheeze Cardiovascular: Regular rate, Regular Rhythm, Normal S1, Normal S2, No murmurs Abdomen: Bowel Sounds Present, Soft, Non Tender, Non-Distended Vital Signs Temp Pulse Resp BP Pulse Ox 36.4 C L 78 16 150/71 H 94 06/29/18 09:45 06/29/18 11:30 06/29/18 11:30 06/29/18 11:30 06/29/18 11:30 Oxygen Flow Rate (L/min) 1 Oxygen Delivery Method Room Air Weight: 82.5 kg Body Mass Index (BMI) 28.5 Finger Stick Blood Glucose 277 Intake and Output for Last 24 Hours 06/27/18 06/28/18 06/29/18 23:59 23:59 23:59 Intake Total 923.7 / 923.7 842 / 842 Balance 923.7 / 923.7 842 / 842 Laboratory Tests Past 24 Hrs 06/28/18 06/28/18 06/28/18 11:10 13:55 17:08 WBC RBC Hgb Hct MCV MCH MCHC RDW RDW Differential Plt Count MPV Immature Gran % (Auto) Neut % (Auto) Lymph % (Auto) [place] % (Auto) Eos % (Auto) Baso % (Auto) Absolute Neuts (auto) Absolute Lymphs (auto) Total Counted PT INR APTT Sodium Potassium Chloride Carbon Dioxide Anion Gap BUN Creatinine Estim Creat Clear Calc Est GFR (MDRD) Af Amer Est GFR (MDRD) Non-Af BUN/Creatinine Ratio Glucose Calcium Troponin I 0.147 H 0.160 H B-Natriuretic Peptide 60.9 Urine Color Urine Clarity Urine pH Ur Specific [place] Urine Protein Urine Glucose (UA) Urine Ketones Urine Occult Blood Urine Nitrite Urine Bilirubin Urine Urobilinogen Ur Leukocyte Esterase Urine RBC Urine WBC Ur Squamous Epith Cells Urine Bacteria Urine Mucus 06/28/18 06/29/18 06/29/18 17:51 05:25 05:25 WBC 5.8 RBC 4.16 L Hgb 12.1 Hct 37.9 MCV 91.1 MCH 29.1 MCHC 31.9 L RDW 13.9 RDW Differential 45.2 H Plt Count 199 MPV 10.4 Immature Gran % (Auto) 0.200 Neut % (Auto) 58.9 Lymph % (Auto) 29.8 [place] % (Auto) 6.6 Eos % (Auto) 4.0 Baso % (Auto) 0.5 Absolute Neuts (auto) 3.4 Absolute Lymphs (auto) 1.72 Total Counted Not Reportable PT INR APTT Sodium 146 H Potassium 4.1 Chloride 112 H Carbon Dioxide 29.0 Anion Gap 5 BUN 38 H Creatinine 1.73 H Estim Creat Clear Calc 27.32 Est GFR (MDRD) Af Amer 37 L Est GFR (MDRD) Non-Af 31 L BUN/Creatinine Ratio 22.0 H Glucose 113 H Calcium 8.8 Troponin I B-Natriuretic Peptide Urine Color Yellow Urine Clarity Clear Urine pH 6.0 Ur Specific [place] 1.010 Urine Protein Negative Urine Glucose (UA) Normal Urine Ketones Negative Urine Occult Blood Negative Urine Nitrite Negative Urine Bilirubin Negative Urine Urobilinogen Normal Ur Leukocyte Esterase Negative Urine RBC 0 SEEN Urine WBC 0 SEEN Ur Squamous Epith Cells 0 SEEN Urine Bacteria 0 SEEN Urine Mucus 0 SEEN 06/29/18 05:25 WBC RBC Hgb Hct MCV MCH MCHC RDW RDW Differential Plt Count MPV Immature Gran % (Auto) Neut % (Auto) Lymph % (Auto) [place] % (Auto) Eos % (Auto) Baso % (Auto) Absolute Neuts (auto) Absolute Lymphs (auto) Total Counted PT 13.5 INR 1.1 APTT 24.0 L Sodium Potassium Chloride Carbon Dioxide Anion Gap BUN Creatinine Estim Creat Clear Calc Est GFR (MDRD) Af Amer Est GFR (MDRD) Non-Af BUN/Creatinine Ratio Glucose Calcium Troponin I B-Natriuretic Peptide Urine Color Urine Clarity Urine pH Ur Specific [place] Urine Protein Urine Glucose (UA) Urine Ketones Urine Occult Blood Urine Nitrite Urine Bilirubin Urine Urobilinogen Ur Leukocyte Esterase Urine RBC Urine WBC Ur Squamous Epith Cells Urine Bacteria Urine Mucus POC Glucose 06/29/18 06/29/18 06/28/18 10:27 07:03 21:35 POC Glucose 146 H 206 H 79 06/28/18 16:55 POC Glucose 140 H Discharge Diet: Low fat/ Low Cholesterol, 1800 Calorie Control Diet Discharge Activity: Return to Normal Activity Call your doctor if you observe: Fever of 101 or Higher Home Medications: Medications to take at Discharge Amlodipine [Norvasc] 10 mg PO DAILY 06/28/18 Aspirin [Aspirin, Baby] 81 mg PO DAILY@0800 06/28/18 Atorvastatin Calcium [Lipitor] 40 mg PO QHS 06/28/18 Calcium Carb/Vitamin D3/Vit K1 [Calcium + D Soft Chewable Tab] 1 each PO DAILY 06/28/18 Cholecalciferol (Vitamin D3) [Vitamin D3] 5,000 unit PO DAILY 06/28/18 Dextrose [Glucose] 4 gm PO PRN PRN 06/28/18 Escitalopram Oxalate [Lexapro] 5 mg PO DAILY 06/28/18 Insulin NPH Human [Humulin N Pen] 12 units SC DINNER 06/28/18 Insulin NPH Human [Humulin N Pen] 16 units SC BREAKFAST 06/28/18 Insulin Regular, Human [Humulin R] 4 unit SQ LUNCH 06/28/18 Insulin Regular, Human [Humulin R] 8 unit SQ DINNER 06/28/18 Insulin Regular, Human [Novolin R] 2 unit SQ BREAKFAST 06/28/18 Metoprolol Tartrate 25 mg PO BID 06/28/18 Other Amb Orders: Basic Metabolic Profile (BMP) Time Frame: 1 Week, Location: Laboratory Primary Care Physician: Timothy Gerber DO [Primary Care Provider] - Disposition: Home Minutes spent on discharge:: 28 Patient Condition:: Fair Medical Necessity - Tobacco Use Smoking Status: Former smoker - quit in 2011; had ~ 94 pack year history Meaningful Use Info Meaningful Use Diagnoses (Choose all that apply): None applicable Code Visit OBSV E&M: 65792 Observation care discharge
--- NOTE | 2018-07-25 14:55 | CL.D_ITS ---
Patient Name: MILTON ALVAREZ Study Date: 06/29/2018 Performing: Anamaria Fuller MD Ht: 67 inches 170 cm : 1945 Wt: 183.2 lbs 83 kg Age: 73 Gender: female BSA: 1.95 PROCEDURE(S) PERFORMED [id number] CLINICAL PROFILE AND INDICATIONS Indications: Suspected CAD Heart Failure: None Stress/Imaging Stress/Image Study Performed: No CAD Presentations: Unstable angina. CONCLUSIONS Moderate CAD as described RECOMMENDATIONS Risk factor modification Maximal medical therapy for CAD DESCRIPTION OF PROCEDURE The patient arrived to the procedure lab. The risks and benefits of the procedure as well as a full d escription of our services here and current unavailability of surgical backup were fully explained to the patient and/or their significant other prior to the catheterization. The Timeout was completed, verifying the correct patient and procedure. The patient's procedural site was prepped and draped in the usual fashion. Local anesthetic was given subcutaneously to right radial region with Lidocaine 2% . Using a modified Seldinger technique, arterial access was obtained via the right radial artery, a 6 Fr sheath was inserted. Left Coronary Artery selective angiography was performed in multiple views u sing a 4 Fr. JL3.5 catheter. LV to AO pullback pressures were then recorded. Right Coronary Artery se lective angiography was then performed in multiple views using a 4 Fr. JR4 catheter.The arterial ndiaye th was pulled and a TR Band was applied for hemostasis 8cc air inserted CORONARY ANGIOGRAPHY DOMINANCE: Right Dominant LEFT HEART ASSESSMENT Left Ventricular Ejection Fraction: Not assessed LEFT MAIN: Angiographically normal LEFT ANTERIOR DESCENDING ARTERY: MID LAD: 40 % Stenosis DIAGONAL 2: Proximal - 60 % Stenosis CIRCUMFLEX ARTERY: Mild luminal irregularities RIGHT CORONARY ARTERY: Mild luminal irregularities VALVE FINDINGS: No Aortic Valve Stenosis COMPLICATIONS No Complications PROCEDURE MEDICATIONS Versed 1 mg IV Fentanyl 50 mcg IV Oxygen: 2 L/min via nasal cannula Heparin given IA 06/29/2018 09:21:18 Verapamil 2.5mg, Ntg 200mcgs, 3000 units of Heparin given IA 06/29/2018 09:21:18 SUMMARY OF HEMODYNAMIC DATA Time AIR REST ECG 08:51:47 AO 147/75 (105) SA 09:24:32 LV 157/2, 17 09:28:45 LV 153/2, 18 09:28:52 LVp 152/5, 18 09:29:16 AO 141/57 (94) 09:29:21 Signed By Anamaria Fuller MD On 06/29/2018 10:00:37 Anamaria Fuller MD
== END 2018-06-29 12:01 | disposition home or self-care (01) ==
LOC: ED 11:30 → PCU 12:22
PROVIDERS: Admitting Provider Student in an Organized Health Care Education/Training Program; Emergency Provider Emergency Medicine; Family Provider Student in an Organized Health Care Education/Training Program; PCP Student in an Organized Health Care Education/Training Program; Referring Provider Student in an Organized Health Care Education/Training Program
DX: R07.89 Other chest pain (principal); I25.10 Atherosclerotic heart disease of native coronary artery without angina pectoris; R42 Dizziness and giddiness; R11.0 Nausea; Z79.899 Other long term (current) drug therapy; Z79.82 Long term (current) use of aspirin; Z79.4 Long term (current) use of insulin; E78.5 Hyperlipidemia, unspecified; Z87.891 Personal history of nicotine dependence; I44.7 Left bundle-branch block, unspecified; E11.22 Type 2 diabetes mellitus with diabetic chronic kidney disease; I12.9 Hypertensive chronic kidney disease with stage 1 through stage 4 chronic kidney disease, or unspecified chronic kidney disease; N18.4 Chronic kidney disease, stage 4 (severe); R94.31 Abnormal electrocardiogram [ECG] [EKG]; I08.1 Rheumatic disorders of both mitral and tricuspid valves
CPT/HCPCS: 36415; 71045; 80048; 80076; 81001; 82962; 83690; 83880; 84484; 85025; 85610; 85730; 93005; 93306; 93454; 96374; 99152; 99218; 99285; J7030; Q9957; Q9967; A4216; C1769; C1894; C8929; G0378; J2405

== ENCOUNTER → 2018-09-07 | Outpatient (CLI) | payer MEDICARE, SELFPAY ==
[2017-03-11 13:13] VITALS: BMI 29.5
[2018-06-28 12:59] VITALS: BMI 28.5
[2018-09-07 10:10] LABS: Hematocrit 39.3 % (37-47); Hemoglobin 13.1 g/dL (12.0-15.0); Mean Corp Hgb Conc 33.3 g/dL (32-36); Mean Corpuscular Hgb 30.1 pg (27.0-32.0); Mean Corpuscular Volume 90.3 fL (81-99); Mean Platelet Vol. 10.2 fl (6.2-12.0); Platelet Count 246 K/mm3 (150-450); RBC Distribution Width CV 13.2 % (11.6-14.6); RBC Distribution Width SD 44.4 fl (35.1-43.9); Red Blood Count 4.35 M/mm3 (4.2-5.4); White Blood Count 6.8 K/mm3 (4.4-11.0)
[2018-09-07 10:31] LABS: Albumin, Serum 3.6 g/dL (3.2-5.0); BUN 36 mg/dL (7-18); BUN/Creat Ratio 20.2 RATIO (10-20); Calcium,Total 10.6 mg/dL (8.5-10.1); Chloride 103 mmol/L (98-107); Creatinine, Serum 1.78 mg/dL (0.55-1.02); EST Glomerular Filtration Rate 30 mL/min (>60); Est Glom Filt Rate - Afr Amer 36 mL/min (>60); Glucose 157 mg/dL (74-106); Potassium 4.1 mmol/L (3.5-5.1); Sodium Level 136 mmol/L (136-145)
[2018-09-07 10:40] LABS: PTHIN 13.4 pg/mL (18.4-80.1)
== END | disposition home or self-care (01) ==
PROVIDERS: Family Provider Student in an Organized Health Care Education/Training Program; PCP Student in an Organized Health Care Education/Training Program; Referring Provider Internal Medicine Nephrology; Visit Provider Internal Medicine Nephrology
DX: N18.4 Chronic kidney disease, stage 4 (severe) (principal)
CPT/HCPCS: 36415; 80069; 83970; 85027

== ENCOUNTER → 2018-09-24 | Outpatient (CLI) | payer MEDICARE, SELFPAY ==
[2018-06-28 12:59] VITALS: BMI 28.5
== END | disposition home or self-care (01) ==
LOC: SL 13:47
PROVIDERS: Family Provider Student in an Organized Health Care Education/Training Program; PCP Student in an Organized Health Care Education/Training Program
DX: G47.10 Hypersomnia, unspecified (principal); R06.83 Snoring; R06.89 Other abnormalities of breathing
CPT/HCPCS: 95806